=== PATIENT | male | born 1970 | race Caucasian/White ===

== ENCOUNTER → 2016-10-22 | Outpatient (CLI) | payer BC ==
[2016-10-22 10:32] LABS: Basophils # (A) 0.1 k/uL (0-0.2); Basophils % (A) 1 %; CHCM 33.1; Eosinophils # (A) 0.3 k/uL (0-0.7); Eosinophils % (A) 3 %; HCT 45.5 % (39.0-53.0); HDW 2.34; HGB 14.7 gm/dL (13.0-17.5); Luc # (Auto) 0.21; Luc % (Auto) 3; Lymphocytes # (A) 1.5 k/uL (1.0-4.8); Lymphocytes % (A) 19 %; MCH 29.4 pg (25.0-35.0); MCHC 32.4 g/dL (31.0-37.0); Mean Platelet Volume 8.1; Monocytes # (A) 0.7 k/uL (0-1.0); Monocytes % (A) 10 %; Neutrophils # (A) 4.9 k/uL (1.3-7.7); Neutrophils % (A) 64 %; WBC 7.7 k/uL (3.8-10.6); WBC (Perox) 8.12
[2016-10-22 10:44] LABS: ALT 96 U/L (21-72); AST 38 U/L (17-59); Alkaline Phosphatase 67 U/L (38-126); Anion Gap 13 mmol/L; Blood Urea Nitrogen 13 mg/dL (9-20); Calcium 8.3 mg/dL (8.4-10.2); Carbon Dioxide 24 mmol/L (22-30); Chloride 108 mmol/L (98-107); Cholesterol 105 mg/dL (<200); Glucose 102 mg/dL (74-99); HDL Cholesterol 36 mg/dL (40-60); Magnesium 2.1 mg/dL (1.6-2.3); Non-African American GFR(MDRD) >60 (>60 ml/min/1.73 sqM); Potassium 4.1 mmol/L (3.5-5.1); Sodium 145 mmol/L (137-145); Total Bilirubin 0.5 mg/dL (0.2-1.3); Triglycerides 144 mg/dL (<150)
[2016-10-22 13:02] LABS: Hemoglobin A1C 5.2 % (4.2-6.1)
== END | disposition home or self-care (01) ==
LOC: LABWHC1 09:55
PROVIDERS: ATTEND Family Medicine
DX: I10 Essential (primary) hypertension (principal); R73.01 Impaired fasting glucose; E78.5 Hyperlipidemia, unspecified
CPT/HCPCS: 36415; 80053; 80061; 83036; 83735; 84443; 85025

== ENCOUNTER → 2017-04-15 | Outpatient (CLI) | payer BC ==
[2017-04-15 09:59] LABS: Basophils % (A) 0 %; CH 29.1; CHCM 33.2; Eosinophils # (A) 0.3 k/uL (0-0.7); Eosinophils % (A) 4 %; HCT 45.1 % (39.0-53.0); HDW 2.35; HGB 15.5 gm/dL (13.0-17.5); Luc # (Auto) 0.24; Luc % (Auto) 3; Lymphocytes # (A) 1.8 k/uL (1.0-4.8); Lymphocytes % (A) 26 %; MCH 30.3 pg (25.0-35.0); MCHC 34.4 g/dL (31.0-37.0); Mean Platelet Volume 7.4; Monocytes # (A) 0.5 k/uL (0-1.0); Monocytes % (A) 7 %; Neutrophils # (A) 4.1 k/uL (1.3-7.7); Neutrophils % (A) 59 %; RBC 5.12 m/uL (4.30-5.90); RDW 13.1 % (11.5-15.5); WBC (Perox) 7.44
[2017-04-15 11:41] LABS: ALT 44 U/L (21-72); AST 25 U/L (17-59); Alkaline Phosphatase 67 U/L (38-126); Anion Gap 12 mmol/L; Blood Urea Nitrogen 14 mg/dL (9-20); Calcium 9.1 mg/dL (8.4-10.2); Carbon Dioxide 23 mmol/L (22-30); Chloride 108 mmol/L (98-107); Cholesterol 99 mg/dL (<200); Creatine Kinase 253 U/L (55-170); Glucose 103 mg/dL (74-99); HDL Cholesterol 35 mg/dL (40-60); Magnesium 2.1 mg/dL (1.6-2.3); Non-African American GFR(MDRD) >60 (>60 ml/min/1.73 sqM); Potassium 4.4 mmol/L (3.5-5.1); Sodium 143 mmol/L (137-145); Total Bilirubin 0.8 mg/dL (0.2-1.3); Triglycerides 92 mg/dL (<150)
[2017-04-15 12:10] LABS: Prostate Specific Antigen 0.88 ng/mL (0.00-4.00)
== END | disposition home or self-care (01) ==
LOC: LABWHC1 09:24
PROVIDERS: ATTEND Family Medicine
DX: E78.5 Hyperlipidemia, unspecified (principal); I10 Essential (primary) hypertension; I25.10 Atherosclerotic heart disease of native coronary artery without angina pectoris; N40.0 Benign prostatic hyperplasia without lower urinary tract symptoms; Z98.61 Coronary angioplasty status
CPT/HCPCS: 36415; 80053; 80061; 82550; 83735; 84153; 84439; 84443; 85025

== ENCOUNTER → 2017-10-09 | Outpatient (CLI) | payer BC ==
[2017-10-09 10:23] LABS: Basophils % (A) 1 %; CH 29.2; CHCM 32.4; Eosinophils # (A) 0.3 k/uL (0-0.7); Eosinophils % (A) 5 %; HCT 48.5 % (39.0-53.0); HDW 2.25; HGB 15.2 gm/dL (13.0-17.5); Luc # (Auto) 0.18; Luc % (Auto) 3; Lymphocytes # (A) 1.7 k/uL (1.0-4.8); Lymphocytes % (A) 26 %; MCH 28.4 pg (25.0-35.0); MCHC 31.3 g/dL (31.0-37.0); MCV 90.7 fL (80.0-100.0); Monocytes # (A) 0.6 k/uL (0-1.0); Monocytes % (A) 10 %; Neutrophils # (A) 3.7 k/uL (1.3-7.7); Neutrophils % (A) 56 %; RBC 5.35 m/uL (4.30-5.90); RDW 14.6 % (11.5-15.5); WBC 6.5 k/uL (3.8-10.6); WBC (Perox) 6.43
[2017-10-09 10:29] LABS: ALT 61 U/L (21-72); AST 33 U/L (17-59); Alkaline Phosphatase 59 U/L (38-126); Anion Gap 10 mmol/L; Blood Urea Nitrogen 15 mg/dL (9-20); Calcium 9.6 mg/dL (8.4-10.2); Carbon Dioxide 26 mmol/L (22-30); Chloride 104 mmol/L (98-107); Cholesterol 115 mg/dL (<200); Creatine Kinase 263 U/L (55-170); Glucose 106 mg/dL (74-99); HDL Cholesterol 37 mg/dL (40-60); Non-African American GFR(MDRD) >60 (>60 ml/min/1.73 sqM); Potassium 4.7 mmol/L (3.5-5.1); Sodium 140 mmol/L (137-145); Total Protein 7.5 g/dL (6.3-8.2)
== END | disposition home or self-care (01) ==
LOC: LABWHC1 09:34
PROVIDERS: ATTEND Family Medicine
DX: I25.10 Atherosclerotic heart disease of native coronary artery without angina pectoris (principal); I10 Essential (primary) hypertension; R73.01 Impaired fasting glucose; E78.5 Hyperlipidemia, unspecified
CPT/HCPCS: 36415; 80053; 80061; 82550; 83036; 84443; 85025

== ENCOUNTER → 2018-03-18 | Outpatient (CLI) | payer BC ==
[2018-03-18 10:22] LABS: Basophils % (A) 0 %; Eosinophils # (A) 0.3 k/uL (0-0.7); Eosinophils % (A) 4 %; HCT 46.6 % (39.0-53.0); HGB 15.2 gm/dL (13.0-17.5); Lymphocytes # (A) 1.7 k/uL (1.0-4.8); Lymphocytes % (A) 23 %; MCH 28.7 pg (25.0-35.0); MCHC 32.6 g/dL (31.0-37.0); MCV 87.9 fL (80.0-100.0); Mean Platelet Volume 7.3; Monocytes # (A) 0.6 k/uL (0-1.0); Monocytes % (A) 8 %; Neutrophils # (A) 4.6 k/uL (1.3-7.7); Neutrophils % (A) 62 %; Platelet Count 208 k/uL (150-450); RDW 13.8 % (11.5-15.5); WBC 7.4 k/uL (3.8-10.6)
[2018-03-18 10:49] LABS: ALT 46 U/L (21-72); AST 28 U/L (17-59); Albumin 4.3 g/dL (3.5-5.0); Alkaline Phosphatase 57 U/L (38-126); Anion Gap 14 mmol/L; Blood Urea Nitrogen 19 mg/dL (9-20); Calcium 8.9 mg/dL (8.4-10.2); Carbon Dioxide 22 mmol/L (22-30); Chloride 104 mmol/L (98-107); Cholesterol 115 mg/dL (<200); Glucose 103 mg/dL (74-99); HDL Cholesterol 31 mg/dL (40-60); LDL Cholesterol,Calculated 61 mg/dL (0-99); Magnesium 1.9 mg/dL (1.6-2.3); Potassium 4.2 mmol/L (3.5-5.1); Sodium 140 mmol/L (137-145); Total Bilirubin 0.9 mg/dL (0.2-1.3); Triglycerides 113 mg/dL (<150)
[2018-03-18 11:03] LABS: T4, Free (Free Thyroxine) 0.91 ng/dL (0.78-2.19)
[2018-03-18 20:05] LABS: Hemoglobin A1C 5.6 % (4.0-6.0)
== END | disposition home or self-care (01) ==
LOC: LABWHC1 09:52
PROVIDERS: ATTEND Family Medicine
DX: Z00.00 Encounter for general adult medical examination without abnormal findings (principal); R73.01 Impaired fasting glucose; E78.5 Hyperlipidemia, unspecified; R21 Rash and other nonspecific skin eruption; Z98.61 Coronary angioplasty status
CPT/HCPCS: 36415; 80053; 80061; 82607; 83036; 83735; 84439; 84443; 85025

== ENCOUNTER 2018-05-07 14:44 | Inpatient (IN) | payer BC ==
[2018-05-07] MEDS ORDERED: ASPIRIN 81 MG PO STA (14:58)
[2018-05-07] MEDS ORDERED: NITROGLYCERIN SL TABS 0.4 MG TAB SUBLINGUAL STA (14:58)
[2018-05-07] MEDS ORDERED: MORPHINE SULFATE 4 MG/ML SYRINGE IV STA (14:58)
[2018-05-07] MEDS ORDERED: SODIUM CHLORIDE 0.9% 1,000 ML IV STA (14:58)
--- NOTE | 2018-05-07 15:04 | ED ---
Chest Pain HPI - General Stated Complaint: Chest Pain/SOB Time Seen by Provider: 05/07/18 14:58 Source: patient Mode of arrival: wheelchair Limitations: no limitations - History of Present Illness Initial Comments: Denys is a 47-year-old male the past medical history most significant for coronary artery disease and CO approximately 5 years ago for which he had 2 stents placed. Patient reports that he was previously on a blood thinner but 2 months ago was told by his primary care physician that he can discontinue this. Patient reports that he was doing well at that time. Patient reports that today he woke up in his usual state of health and went to work. Patient reports he has a pretty physically demanding job and never has any complications performing his activities. He states that today he began feeling pain in his chest that radiated to his left shoulder. He then felt very short of breath and felt that he was about to pass out, he states that his vision darkened. He sat down to rest and felt somewhat better. He tried to go back to work but continued back pain in his chest. He took a full dose aspirin which did not improve his symptoms. At that time he decided to come to the emergency department for evaluation. The patient reports that he has not had episodes of chest pain since his previous heart attack. He has never had to take nitro in the past. His last stress test he believes was greater than one year ago and he cannot recall if he has had a cardiac catheterization since his stenting. - Related Data Home Medications Medication Instructions Recorded Confirmed Aspirin 81 mg PO DAILY 02/18/14 05/07/18 Atorvastatin Calcium [Lipitor] 40 mg PO HS 02/18/14 05/07/18 Lisinopril [Zestril] 2.5 mg PO DAILY 02/18/14 05/07/18 Metoprolol Tartrate [Lopressor] 25 mg PO DAILY 02/18/14 05/07/18 Previous Rx's Medication Instructions Recorded Nitroglycerin Sl Tabs [Nitrostat] 0.4 mg SUBLINGUAL Q5M PRN #25 tab 02/19/14 Allergies Allergy/AdvReac Type Severity Reaction Status Date / Time No Known Allergies Allergy Verified 05/07/18 15:10 Review of Systems ROS Statement: Those systems with pertinent positive or pertinent negative responses have been documented in the HPI. ROS Other: All systems not noted in ROS Statement are negative. Constitutional: Denies: fever, chills ENT: Denies: throat pain Respiratory: Reports: dyspnea. Denies: cough, wheezes Cardiovascular: Reports: chest pain, dyspnea on exertion. Denies: edema Endocrine: Reports: fatigue Gastrointestinal: Denies: abdominal pain, nausea, vomiting Genitourinary: Denies: urgency, dysuria Musculoskeletal: Denies: back pain Skin: Denies: rash, lesions Neurological: Denies: headache, weakness Psychiatric: Denies: anxiety Hematological/Lymphatic: Denies: easy bleeding, easy bruising EKG Findings - EKG Comments: EKG Findings:: EKG at 1455, rate is 59, rhythm is sinus, there is a normal axis , there are normal intervals, NJ 172, QRS 86, QTC 423, there are no acute ST elevations, noted to have T-wave inversions in lead 3 but no other significant abnormalities. No evidence of acute ischemia or infarction. Past Medical History Past Medical History: Chest Pain / Angina, Hyperlipidemia, Hypertension, Myocardial Infarction (CO) Last Myocardial Infarction Date:: February 2013 History of Any Multi-Drug Resistant Organisms: None Reported Past Surgical History: Heart Catheterization With Stent Past Anesthesia/Blood Transfusion Reactions: No Reported Reaction Date of Last Stent Placement:: February 2013 Past Psychological History: No Psychological Hx Reported Smoking Status: Former smoker Past Alcohol Use History: None Reported Past Drug Use History: None Reported - Past Family History Father Family Medical History: Myocardial Infarction ([place]) General Exam Limitations: no limitations Course Vital Signs 05/07/18 05/07/18 14:53 15:32 Temperature 98.3 F Pulse Rate 62 70 Respiratory 18 16 Rate Blood Pressure 158/93 136/77 O2 Sat by Pulse 100 98 Oximetry [facility] The patient was seen and evaluated, history is obtained from the patient A short with a history of coronary artery disease, status post stenting 2. Recently taken off of his oral anticoagulant. Experiencing exertional chest pain, dyspnea and lightheadedness today. Upon arrival patient was pale and diaphoretic High suspicion for cardiac etiology of discomfort and symptoms Patient took a baby aspirin this morning and a full dose aspirin when his symptoms started, no indication for aspirin this time Patient did not take a nitro because he has not taken in the past and is uncertain if he should. Nitro was ordered as well as EKG and labs EKG is sinus bradycardia with no acute ST elevations or depressions Chest x-ray no acute findings The patient reports significant improvement in his discomfort after Nitro infusion was ordered Troponin is negative. Of note the CK is elevated the patient does perform a physically active job and admits that he doesn't eat or drink throughout the day , we will hydrate and trend this Care discussed with Dr Curry who agrees patient needs observation, heparin, nitro and cardiology consultation Observation and cardiology consult orders placed Disposition Clinical Impression: Chest pain Disposition: ADMITTED IP TO THIS HOSP Condition: Good Is patient prescribed a controlled substance at d/c from ED?: No Decision Time: 17:05
--- NOTE | 2018-05-07 15:49 | XR ---
EXAMINATION TYPE: XR chest 2V DATE OF EXAM: 05/07/2018 COMPARISON: Prior chest 02/18/2014 HISTORY: Chest pain TECHNIQUE: Frontal and lateral views of the chest are obtained. FINDINGS: There is no focal air space opacity, pleural effusion, or pneumothorax seen. The cardiac silhouette size is within normal limits. The osseous structures are intact. IMPRESSION: No acute cardiopulmonary process. Stable exam.
[2018-05-07 15:51] LABS: Basophils % (A) 0 %; Eosinophils # (A) 0.1 k/uL (0-0.7); Eosinophils % (A) 2 %; HCT 44.3 % (39.0-53.0); HGB 14.9 gm/dL (13.0-17.5); Lymphocytes # (A) 1.2 k/uL (1.0-4.8); Lymphocytes % (A) 19 %; MCH 28.8 pg (25.0-35.0); MCHC 33.7 g/dL (31.0-37.0); MCV 85.4 fL (80.0-100.0); Mean Platelet Volume 7.3; Monocytes # (A) 0.5 k/uL (0-1.0); Monocytes % (A) 8 %; Neutrophils # (A) 4.4 k/uL (1.3-7.7); Neutrophils % (A) 69 %; Platelet Count 180 k/uL (150-450); RBC 5.19 m/uL (4.30-5.90); RDW 13.7 % (11.5-15.5); WBC 6.4 k/uL (3.8-10.6)
[2018-05-07] MEDS ORDERED: NITROGLYCERIN-D5W PMX 50 MG in DEXTROSE/WATER 1 250ML.BAG IV ONE (15:53)
[2018-05-07 15:58] LABS: ALT 44 U/L (21-72); AST 29 U/L (17-59); Albumin 4.4 g/dL (3.5-5.0); Alkaline Phosphatase 52 U/L (38-126); Anion Gap 8 mmol/L; Blood Urea Nitrogen 15 mg/dL (9-20); Calcium 9.1 mg/dL (8.4-10.2); Carbon Dioxide 24 mmol/L (22-30); Chloride 107 mmol/L (98-107); Glucose 106 mg/dL (74-99); Potassium 4.7 mmol/L (3.5-5.1); Sodium 139 mmol/L (137-145); Total Protein 7.1 g/dL (6.3-8.2)
[2018-05-07 16:03] LABS: Creatine Kinase 389 U/L (55-170)
[2018-05-07 16:06] LABS: INR 1.1 (<1.2); Partial Thromboplastin Time 27.1 sec (22.0-30.0); Prothrombin Time 10.8 sec (9.0-12.0)
[2018-05-07 16:15] LABS: Creatine Kinase MB 1.9 ng/mL (0.0-2.4); Troponin I <0.012 ng/mL (0.000-0.034)
[2018-05-07] MEDS ORDERED: NALOXONE 0.4 MG/ML 1 ML VIAL IV PRN (17:01)
[2018-05-07] MEDS ORDERED: HEPARIN SODIUM,PORCINE 5,000 UNIT/ML 1 ML VIAL IV ONE (17:03)
[2018-05-07] MEDS ORDERED: HEPARIN SODIUM,PORCINE 5,000 UNIT/ML 1 ML VIAL IV PRN (17:03)
[2018-05-07] MEDS ORDERED: HEPARIN SOD,PORK IN 0.45% NACL 25,000 UNIT in 0.45% NACL 1 500ML.BAG IV SCH (17:15)
[2018-05-07 19:37] VITALS: BMI 31.2
[2018-05-07] MEDS ORDERED: NITROGLYCERIN SL TABS 0.4 MG TAB SUBLINGUAL PRN (19:55)
[2018-05-07] MEDS: METOPROLOL TARTRATE 25 MG TAB PO SCH (20:08)
[2018-05-07] MEDS: ACETAMINOPHEN TAB 325 MG TAB PO PRN (20:09)
[2018-05-07] MEDS: FAMOTIDINE 20 MG TAB PO SCH (20:11)
[2018-05-07] MEDS ORDERED: ATORVASTATIN 40 MG TAB PO SCH (21:00)
[2018-05-08] MEDS ORDERED: ACETAMINOPHEN TAB 325 MG TAB ONE (03:20)
[2018-05-08 03:52] LABS: Basophils % (A) 0 %; Eosinophils # (A) 0.3 k/uL (0-0.7); Eosinophils % (A) 3 %; HCT 41.2 % (39.0-53.0); HGB 13.7 gm/dL (13.0-17.5); Lymphocytes # (A) 2.3 k/uL (1.0-4.8); Lymphocytes % (A) 29 %; MCHC 33.3 g/dL (31.0-37.0); MCV 87.3 fL (80.0-100.0); Mean Platelet Volume 7.5; Monocytes # (A) 0.6 k/uL (0-1.0); Monocytes % (A) 8 %; Neutrophils # (A) 4.7 k/uL (1.3-7.7); Neutrophils % (A) 58 %; Platelet Count 190 k/uL (150-450); RBC 4.71 m/uL (4.30-5.90); RDW 13.8 % (11.5-15.5)
[2018-05-08] MEDS: ASPIRIN 325 MG TAB PO SCH (08:23)
[2018-05-08] MEDS: LISINOPRIL 2.5 MG TAB PO SCH (08:23)
[2018-05-08] MEDS: FAMOTIDINE 20 MG TAB PO SCH ×3 (08:23→19:59)
[2018-05-08] MEDS: METOPROLOL TARTRATE 25 MG TAB PO SCH ×2 (08:23→19:57)
[2018-05-08] MEDS: ACETAMINOPHEN TAB 325 MG TAB PO PRN ×2 (08:26→21:44)
--- NOTE | 2018-05-08 09:48 | P.CRDCN ---
History of Present Illness Consult date: 05/08/18 Chief complaint: Chest discomfort History of present illness: This is a pleasant 47-year-old gentleman who sees Dr. JOSIAS Fox in the office as an outpatient with a past medical history significant for coronary artery disease and prior stenting of the LAD and RCA in 2012, hypertension, and dyslipidemia, as well as prior history of smoking, presented to the emergency room complaining of chest discomfort. The patient was in his usual state of health until yesterday when he was at work and started experiencing chest discomfort, in the mid and left side of the chest, as a dull kind of discomfort , without any radiation to the arm or neck or shoulders but it was associated with any nausea and shortness of breath feeling. The patient took one nitroglycerin with improvement in his symptoms and he presented to the emergency room. In the ER the patient wasn't started experiencing chest discomfort again and he was started on nitro drip and heparin drip. During his hospital stay he did have 2 more episodes of chest discomfort resolved with sublingual nitroglycerin. Currently the patient is still have very mild chest discomfort. The EKG showed sinus rhythm without any ischemic ST or T-wave abnormalities. 3 sets of cardiac enzymes came in to be unremarkable. Giving the ongoing chest discomfort and the nature of the discomfort which seems to be anginal I did recommend proceeding with heart catheterization. The procedure in details was explained to the patient. Past Medical History Past Medical History: Chest Pain / Angina, Hyperlipidemia, Hypertension, Myocardial Infarction ([place]) Last Myocardial Infarction Date:: February 2013 History of Any Multi-Drug Resistant Organisms: None Reported Past Surgical History: Heart Catheterization With Stent Past Anesthesia/Blood Transfusion Reactions: No Reported Reaction Date of Last Stent Placement:: February 2013 Past Psychological History: No Psychological Hx Reported Smoking Status: Former smoker Past Alcohol Use History: Occasional Past Drug Use History: None Reported - Past Family History Father Family Medical History: Myocardial Infarction ([place]) Medications and Allergies Home Medications Medication Instructions Recorded Confirmed Type Aspirin 81 mg PO DAILY 02/18/14 05/07/18 History Atorvastatin Calcium [Lipitor] 40 mg PO HS 02/18/14 05/07/18 History Lisinopril [Zestril] 2.5 mg PO DAILY 02/18/14 05/07/18 History Metoprolol Tartrate [Lopressor] 25 mg PO BID 02/18/14 05/07/18 History Nitroglycerin Sl Tabs [Nitrostat] 0.4 mg SUBLINGUAL Q5M PRN #25 tab 02/19/14 Rx Allergies Allergy/AdvReac Type Severity Reaction Status Date / Time No Known Allergies Allergy Verified 05/07/18 15:10 Physical Exam Vitals: Vital Signs Temp Pulse Pulse Resp BP BP Pulse Ox 05/08/18 08:28 97.1 F L 61 16 111/70 95 05/08/18 04:00 96.9 F L 58 L 16 109/72 96 05/08/18 00:00 97.3 F L 60 18 109/70 94 L 05/07/18 20:00 96.9 F L 60 18 123/65 97 05/07/18 18:37 56 L 16 121/65 95 05/07/18 17:45 50 L 16 132/86 98 05/07/18 15:32 70 16 136/77 98 05/07/18 14:53 98.3 F 62 18 158/93 100 Intake and Output 05/07/18 05/08/18 05/08/18 22:59 06:59 14:59 Intake Total 300 1036.333 Balance 300 1036.333 Intake: Intake, IV Titration 1036.333 Amount Heparin Sod,Pork in 0.45% 236.333 NaCl 25,000 unit In 0.45 % NaCl 1 500ml.bag @ 10.5 UNITS/KG/HR 20 mls/hr IV .Q24H KATHERIN Rx#:[id number] Sodium Chloride 0.9% 1, 800 000 ml @ 100 mls/hr IV . Q10H STA Rx#:[id number] Oral 300 Other: Voiding Method Toilet Toilet # Voids 1 2 Weight 96 kg 96 kg - Constitutional General appearance: no acute distress - Respiratory Respiratory: bilateral: CTA - Cardiovascular Rhythm: regular Heart sounds: normal: S1, S2 Results 05/08/18 03:10 05/07/18 15:15 Cardiac Enzymes 05/07/18 05/07/18 05/07/18 Range/Units 15:15 15:15 20:36 AST 29 (17-59) U/L CK-MB (CK-2) 1.9 (0.0-2.4) ng/mL Troponin I <0.012 <0.012 (0.000-0.034) ng/mL 05/08/18 Range/Units 03:10 AST (17-59) U/L CK-MB (CK-2) (0.0-2.4) ng/mL Troponin I <0.012 (0.000-0.034) ng/mL Coagulation 05/07/18 05/07/18 05/08/18 Range/Units 15:15 23:20 05:30 PT 10.8 (9.0-12.0) sec APTT 27.1 49.1 H 42.3 H (22.0-30.0) sec CBC 05/07/18 05/08/18 Range/Units 15:15 03:10 WBC 6.4 8.0 (3.8-10.6) k/uL RBC 5.19 4.71 (4.30-5.90) m/uL Hgb 14.9 13.7 (13.0-17.5) gm/dL Hct 44.3 41.2 (39.0-53.0) % Plt Count 180 190 (150-450) k/uL Comprehensive Metabolic Panel 05/07/18 Range/Units 15:15 Sodium 139 (137-145) mmol/L Potassium 4.7 (3.5-5.1) mmol/L Chloride 107 (98-107) mmol/L Carbon Dioxide 24 (22-30) mmol/L BUN 15 (9-20) mg/dL Creatinine 0.80 (0.66-1.25) mg/dL Glucose 106 H (74-99) mg/dL Calcium 9.1 (8.4-10.2) mg/dL AST 29 (17-59) U/L ALT 44 (21-72) U/L Alkaline Phosphatase 52 (38-126) U/L Total Protein 7.1 (6.3-8.2) g/dL Albumin 4.4 (3.5-5.0) g/dL Current Medications Generic Name Dose Route Start Last Admin Trade Name Freq PRN Reason Stop Dose Admin Acetaminophen 650 mg 05/07/18 19:56 05/08/18 08:26 Tylenol Tab PO 650 mg Q4HR PRN Administration Fever and/ or MILD Pain Aspirin 325 mg 05/08/18 09:00 05/08/18 08:23 Aspirin PO 325 mg DAILY KATHERIN Administration Atorvastatin Calcium 40 mg 05/07/18 21:00 05/07/18 20:08 Lipitor PO 40 mg HS KATHERIN Administration Famotidine 20 mg 05/07/18 21:00 05/08/18 08:23 Pepcid PO 20 mg BID KATHERIN Administration Heparin Sodium (Porcine) 0 unit 05/07/18 17:03 05/08/18 06:23 Heparin IV 2,400 unit PER PROTOCOL PRN Administration Low PTT Protocol Nitroglycerin/Dextrose 50 mg/ 250 mls @ 1.5 mls/hr 05/07/18 15:53 05/07/18 16 :37 IV Solution IV 05/08/18 15:52 5 mcg/min .Q24H ONE 1.5 mls/hr Administration Protocol 5 MCG/MIN Heparin Sodium/Sodium Chloride 500 mls @ 20 mls/hr 05/07/18 17:15 05/08/18 06 :22 25,000 unit/ Sodium Chloride IV 12.5 units/kg/hr .Q24H KATHERIN 23.81 mls/hr Titration Protocol 10.5 UNITS/KG/HR Lisinopril 2.5 mg 05/08/18 09:00 05/08/18 08:23 Zestril PO 2.5 mg DAILY KATHERIN Administration Metoprolol Tartrate 25 mg 05/07/18 21:00 05/08/18 08:23 Lopressor PO 25 mg BID KATHERIN Administration Naloxone HCl 0.2 mg 05/07/18 17:01 Narcan IV Q2M PRN Opioid Reversal Nitroglycerin 0.4 mg 05/07/18 19:55 05/08/18 08:23 Nitrostat SUBLINGUAL 0.4 mg Q5M PRN Administration Chest Pain Intake and Output 05/07/18 05/08/18 05/08/18 22:59 06:59 14:59 Intake Total 300 1036.333 Balance 300 1036.333 Intake: Intake, IV Titration 1036.333 Amount Heparin Sod,Pork in 0.45% 236.333 NaCl 25,000 unit In 0.45 % NaCl 1 500ml.bag @ 10.5 UNITS/KG/HR 20 mls/hr IV .Q24H KATHERIN Rx#:[id number] Sodium Chloride 0.9% 1, 800 000 ml @ 100 mls/hr IV . Q10H STA Rx#:[id number] Oral 300 Other: Voiding Method Toilet Toilet # Voids 1 2 Weight 96 kg 96 kg 05/08/18 03:10 05/07/18 15:15 Assessment and Plan Assessment: Assessment #1 chest discomfort concerning for angina. #2 known CAD and prior multivessel coronary artery stenting as described above #3 hypertension #4 dyslipidemia Plan #1 I did recommend proceeding with a heart catheterization #2 obtain an echocardiogram was Doppler #3 follow-up with the patient. Thank you for allowing us participate in his care and we will continue following up with the patient
[2018-05-08] MEDS ORDERED: ATORVASTATIN 80 MG TAB PO STA (10:19)
[2018-05-08] MEDS ORDERED: SODIUM CHLORIDE 0.9% 1,000 ML in EMPTY BAG 1 BAG IV ONE (10:19)
[2018-05-08] MEDS ORDERED: ALPRAZolam 0.25 MG TAB PO PRN (10:19)
[2018-05-08] MEDS ORDERED: ASPIRIN 325 MG TAB PO STA (10:19)
[2018-05-08] MEDS ORDERED: ALPRAZolam 0.5 MG TAB PO PRN (10:19)
[2018-05-08] MEDS ORDERED: NITROGLYCERIN SL TABS 0.4 MG TAB SUBLINGUAL PRN (10:19)
--- NOTE | 2018-05-08 10:24 | ECHOF ---
Referral Reason:assess lvf MEASUREMENTS -------- HEIGHT: 175.3 cm WEIGHT: 95.7 kg BP: 109/72 RVIDd: 2.4 cm (< 3.3) IVSd: 0.9 cm (0.6 - 1.1) LVIDd: 5.1 cm (3.9 - 5.3) LVPWd: 0.9 cm (0.6 - 1.1) IVSs: 1.3 cm LVIDs: 3.8 cm LVPWs: 1.3 cm LAESV Index (A-L): 29.74 ml/m Ao Diam: 3.0 cm (2.0 - 3.7) AV Cusp: 2.2 cm (1.5 - 2.6) LA Diam: 3.2 cm (2.7 - 3.8) EPSS: 0.9 cm MV E Mateus: 0.96 m/s MV DecT: 264 ms MV A Mateus: 0.59 m/s MV E/A Ratio: 1.63 RAP: 5.00 mmHg RVSP: 22.66 mmHg MV EF SLOPE: 85.54 mm/s (70 - 150) MV EXCURSION: 1.86 cm (> 18.000) FINDINGS -------- Sinus rhythm. This was a technically adequate study. The left ventricular size is normal. Left ventricular wall thickness is normal. Overall left vent ricular systolic function is low-normal with, an EF between 50 - 55 %. The right ventricle is normal in size and function. LA is midly dilated 29-33ml/m2. The right atrium is normal in size. The aortic valve is trileaflet, and appears structurally normal. No aortic stenosis or regurgitation. The mitral valve is normal. There is trace to mild mitral regurgitation. Trace tricuspid regurgitation present. Right ventricular systolic pressure is normal at < 35 mmHg. There is no evidence of pulmonary hypertension. Trace/mild (physiologic) pulmonic regurgitation. The aortic root size is normal. Normal inferior vena cava with normal inspiratory collapse consistent with estimated right atrial pre ssure of 5 mmHg. There is no pericardial effusion. CONCLUSIONS -------- 1. Sinus rhythm. 2. This was a technically adequate study. 3. The left ventricular size is normal. 4. Left ventricular wall thickness is normal. 5. Overall left ventricular systolic function is low-normal with, an EF between 50 - 55 %. 6. LA is midly dilated 29-33ml/m2. 7. The aortic valve is trileaflet, and appears structurally normal. No aortic stenosis or regurgitati on. 8. There is trace to mild mitral regurgitation. 9. Trace tricuspid regurgitation present. 10. Right ventricular systolic pressure is normal at < 35 mmHg. 11. There is no evidence of pulmonary hypertension. 12. Trace/mild (physiologic) pulmonic regurgitation. 13. The aortic root size is normal. 14. There is no pericardial effusion. FIRESTOPPER INSTALLER: Jacob Butler RDCS
[2018-05-08] MEDS ORDERED: IV FLUID CONTINUATION 900 ML IV ONE (11:29)
[2018-05-08] MEDS ORDERED: MIDAZOLAM 2 MG/2 ML VIAL IVP ONE ×2 (11:36→11:46)
[2018-05-08] MEDS ORDERED: LIDOCAINE 1% INJ 10MG/ML (20 ML MDV) SQ ONE (11:42)
[2018-05-08] MEDS: VERAPAMIL SYRINGE (5 MG/10 ML) INTRAARTER ONE ×2 (11:45→11:54)
[2018-05-08] MEDS ORDERED: HEPARIN SODIUM 1,000 UN/ML (10ML VL) IV ONE (11:45)
[2018-05-08] MEDS ORDERED: IOPAMIDOL-370 125ML BTL INJ ONE (11:54)
[2018-05-08] MEDS ORDERED: RX INFO: IV CONTRAST WAS GIVEN 1 EACH MISC MISCELLANE PRN (12:04)
[2018-05-08] MEDS ORDERED: SODIUM CHLORIDE 0.9% 1,000 ML IV SCH (12:15)
--- NOTE | 2018-05-08 12:44 | LTR ---
DATE OF SERVICE: 05/08/2018 RE: Denys Montalvo Dear Dr. Solo; Mr. Denys Montalvo presented to the emergency room complaining of chest discomfort. As you know, he is known to have coronary artery disease and prior stenting of the LAD and RCA. Because of the ongoing chest discomfort, I did recommend proceeding with a heart catheterization. The heart catheterization did reveal chronic total occlusion of the right coronary artery which fills by collaterals from the left coronary artery system. Maximize medical treatment is recommended at this point of time and I am going to add oral nitrate and Ranexa to his regimen. Thank you for allowing us to participate in his care. Sincerely, MD RERE Trevizo / DAT: [id number] /
--- NOTE | 2018-05-08 12:50 | CC ---
CARDIAC CATHETERIZATION REPORT DATE OF SERVICE: 05/08/2018 PERFORMING PHYSICIAN: Sherwin Lo MD, medical instructor. PROCEDURE PERFORMED: 1. Selective right and left coronary angiogram. 2. Left heart catheterization. INDICATION: This is a pleasant 47-year-old gentleman who sees Dr. Sg Dang in the office as an outpatient with history of coronary artery disease and prior stenting of the LAD and RCA in 2012, as well as hypertension and dyslipidemia who presented to the emergency room complaining of chest discomfort started yesterday. The patient was ruled out for acute coronary event. He continues to have chest discomfort relieved by nitroglycerin. Because of that, a heart catheterization was recommended. APPROACH: Right radial artery. COMPLICATION: None. LEVEL OF SEDATION: Moderate, with sedation length of 12 minutes. PROCEDURE DESCRIPTION: After obtaining an informed consent, the patient was brought to cardiac director of cath lab. The right radial artery was cannulated using micropuncture technique, the micropuncture wire passed easily then I placed a 6-Emirati sheath in the right radial artery. After that I gave the patient 2 mg of verapamil IA and 10,000 units of heparin IV. I did selective right and left coronary angiogram using JR4 and JL3.5 catheters. The left heart catheterization was performed using the JR4 catheter which flipped into the LV then I did pullback across the aortic valve. The procedure was completed without any complication. SELECTIVE CORONARY ANGIOGRAM: 1. The RCA is a large caliber vessel and it is a dominant vessel. The RCA in the proximal portion is stented and the stent is patent. The mid RCA has mild disease only. The RCA distally has a long tubular lesion extends from the midportion all the way to distal and distal is 100% occluded on a short area, short segment of chronic total occlusion. The RCA fills by collateral from the right coronary system. 2. The left main is angiographically normal. It bifurcates into left circumflex and left anterior descending artery. 3. The left circumflex: The proximal circumflex has mild disease only. It gives rise into a large OM branch which has mild disease only as well. The mid circumflex is normal. The circumflex distally appeared to be angiographically normal. Left-to- right collaterals were seen filling the RCA. 4. The LAD: The proximal LAD has mild disease only. The LAD in the proximal portion is stented and the stent is patent. The LAD gives rise also in the proximal portion into a medium-sized diagonal branch which has moderate disease in its ostium. The mid and distal LAD appeared to be angiographically normal. HEMODYNAMICS: The left ventricular end-diastolic pressure was 12 mmHg and no gradient was identified across the aortic valve. CONCLUSION: 1. 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 2. Normal left main coronary artery. 3. Mild disease involving the left circumflex coronary system. 4. Mild disease involving the left anterior descending artery coronary system with patent stent in the proximal left anterior descending artery. There was intermediate disease involving the ostial diagonal appeared to be unchanged compared to before. POSTPROCEDURE MANAGEMENT: I did recommend a conservative medical approach and medical treatment only for this gentleman. He is already on aspirin, high-intensity statin, and metoprolol, as well as lisinopril. I am going to add oral nitrate as well as Ranexa and follow up with him. If he is pain-free by tomorrow, he might be able to be discharged home and follow up with Dr. Sg Fox in the office. MMODL / IJN: [id number] /
--- NOTE | 2018-05-08 13:41 | P.HPIM ---
History of Present Illness H&P Date: 05/08/18 Chief Complaint: Unstable angina, coronary artery disease, hypertension, hyperlipidemia, MIRYAM 47-year-old male one of Dr. Solo's patient with past medical history of CAD post PCI and stent placement over 2 years ago who seen cardiology regular basis also had history of hypertension hyperlipidemia has been on medical management patient is more compliant watch himself carefully. He developed to have chest tightness and discomfort in midsternal area radiating toward the left upper side and the neck area symptom or associated with increased shortness of breath with minimum exertion along with palpitation mild lightheadedness and nausea. Symptoms were more severe and reminded him what happened last time when he had his angioplasty of the RCA and this LAD back in 2012. Soon as he arrived to the emergency room patient symptom resolved with nitroglycerin and he become chest pain free. Was started on heparin drip nitro and admitted to the hospital. Patient be seen cardiology and probably will be going for heart catheter in the meanwhile will keep doing CK with troponin times 3 repeat EKG. Review of Systems CONSTITUTIONAL: Well-developed no acute respiratory distress. EYES: No icterus sclerae, no conjunctivitis. EARS, NOSE, MOUTH, THROAT, and FACE: No sore throat, lymphadenopathy, carotid bruits or deformity. RESPIRATORY: No SOB cough or wheezes. CARDIOVASCULAR: Positive chest pain and angina, positive palpitation and shortness of breath. GASTROINTESTINAL: No Abd pain, Nausea or vomiting, no Diarrhea or constipation, No GI Bleed, no distention or masses. GENITOURINARY: Negative for Hematuria or UTI, no kidney stones. INTEGUMENT/BREAST: Negative for any muscular injury with mild osteoarthritis.. HEMATOLOGIC/LYMPHATIC: Negative for bleed or purpura. MUSCULOSKELTAL: Negative for Myalgia or arthralgia. NEURLOGICAL: No LOC, Sz or syncope, blurred vision dizziness or abnormality.. BEHAVIORAL/PSYCH: Negative. ENDOCRINE: Negative. Past Medical History Past Medical History: Chest Pain / Angina, Hyperlipidemia, Hypertension, Myocardial Infarction ([place]) Last Myocardial Infarction Date:: February 2013 History of Any Multi-Drug Resistant Organisms: None Reported Past Surgical History: Heart Catheterization With Stent Past Anesthesia/Blood Transfusion Reactions: No Reported Reaction Date of Last Stent Placement:: February 2013 Past Psychological History: No Psychological Hx Reported Smoking Status: Former smoker Past Alcohol Use History: Occasional Past Drug Use History: None Reported - Past Family History Father Family Medical History: Myocardial Infarction ([place]) Medications and Allergies Home Medications Medication Instructions Recorded Confirmed Type Aspirin 81 mg PO DAILY 02/18/14 05/07/18 History Atorvastatin Calcium [Lipitor] 40 mg PO HS 02/18/14 05/07/18 History Lisinopril [Zestril] 2.5 mg PO DAILY 02/18/14 05/07/18 History Metoprolol Tartrate [Lopressor] 25 mg PO BID 02/18/14 05/07/18 History Nitroglycerin Sl Tabs [Nitrostat] 0.4 mg SUBLINGUAL Q5M PRN #25 tab 02/19/14 Rx Allergies Allergy/AdvReac Type Severity Reaction Status Date / Time No Known Allergies Allergy Verified 05/07/18 15:10 Physical Exam Vitals: Vital Signs Temp Pulse Pulse Resp BP BP Pulse Ox 05/08/18 12:55 117/70 05/08/18 12:40 123/80 05/08/18 12:25 121/81 05/08/18 12:10 16 120/77 96 05/08/18 10:52 97.1 F L 61 16 111/70 95 05/08/18 08:28 97.1 F L 61 16 111/70 95 05/08/18 08:00 16 05/08/18 04:00 96.9 F L 58 L 16 109/72 96 05/08/18 00:00 97.3 F L 60 18 109/70 94 L 05/07/18 20:00 96.9 F L 60 18 123/65 97 05/07/18 18:37 56 L 16 121/65 95 05/07/18 17:45 50 L 16 132/86 98 05/07/18 15:32 70 16 136/77 98 05/07/18 14:53 98.3 F 62 18 158/93 100 Intake and Output 05/07/18 05/08/18 05/08/18 22:59 06:59 14:59 Intake Total 300 1036.333 50 Balance 300 1036.333 50 Intake: IV 50 Intake, IV Titration 1036.333 Amount Heparin Sod,Pork in 0.45% 236.333 NaCl 25,000 unit In 0.45 % NaCl 1 500ml.bag @ 10.5 UNITS/KG/HR 20 mls/hr IV .Q24H KATHERIN Rx#:[id number] Sodium Chloride 0.9% 1, 800 000 ml @ 100 mls/hr IV . Q10H STA Rx#:[id number] Oral 300 Other: Voiding Method Toilet Toilet # Voids 1 2 Weight 96 kg 96 kg General Appearance: Alert, cooperative, no distress, appears stated age. Neck HEENT: Supple, no lymphadenopathy, no thyroid enlargement, no carotid bruits. Lungs: Clear to auscultation without crackles or wheezes no rhonchi, no deformity. Chest Wall: Chest wall normal expansion with deep inspiration no tenderness and no deformity was found on exam, no costochondral pain or discomfort. Heart: Regular rate and rhythm, S1, S2 normal, no murmur, rub or gallop. Back: Symmetric, no curvature, ROM normal, no CVA tenderness. Abdomen: Soft, non-tender, bowel sounds active all four quadrants, no masses, no organomegaly. Extremities: Extremities normal, atraumatic, no cyanosis or edema. Pulses: 2+ and symmetric. Skin: Skin color, texture, tugor normal, no rashes or lesions. Neurologic: Alert oriented x3 cranial nerves II through XII intact, no motor deficit, no abnormal balance or gait. Results CBC & Chem 7: 05/08/18 03:10 05/07/18 15:15 Labs: Abnormal Lab Results - Last 24 Hours (Table) 05/07/18 05/07/18 05/07/18 Range/Units 15:15 15:15 23:20 APTT 49.1 H (22.0-30.0) sec Glucose 106 H (74-99) mg/dL Total Creatine Kinase 389 H (55-170) U/L 05/08/18 Range/Units 05:30 APTT 42.3 H (22.0-30.0) sec Glucose (74-99) mg/dL Total Creatine Kinase (55-170) U/L Thrombosis Risk Factor Assmnt - DVT/VTE Prophylaxis DVT/VTE Prophylaxis: Pharmacologic Prophylaxis ordered, Mechanical Prophylaxis ordered - Choose All That Apply Any of the Below Risk Factors Present?: Yes Each Factor Represents 1 point: Age 41-60 years, Obesity (BMI >25) Other Risk Factors: No Other congenital or acquired thrombophilia - If yes, enter type in comment: No Thrombosis Risk Factor Assessment Total Risk Factor Score: 2 Thrombosis Risk Factor Assessment Level: Low Risk Assessment and Plan Plan: 1 unstable angina: Patient be going for heart catheter if he has any blockage angioplasty and stent will be done and patient will be continued on secondary prevention afterward. 2 CAD post to angioplasty and stent placement of the RCA and LAD has been seen Dr. FERRARA ready regular basis continue current treatment management. 3 hypertension: Patient has been on metoprolol 25 mg twice a day along with lisinopril 2.5 mg daily. 4 hyperlipidemia: Remain on atorvastatin 40 mg daily. 5 severe GERD: Patient be started on Pepcid 20 mg daily. 6 DVT prophylaxis: Patient remain on heparin drip currently. CODE STATUS: Full code. Admit patient to inpatient status for more than 2 nights.
[2018-05-08] MEDS: ISOSORBIDE MONONITRATE ER 30 MG TAB.ER.24H PO SCH (14:24)
[2018-05-08] MEDS: RANOLAZINE 500 MG TAB.ER.12H PO SCH ×2 (14:24→19:57)
[2018-05-08] MEDS ORDERED: RANOLAZINE 500 MG TAB.ER.12H PO SCH (21:00)
[2018-05-09 06:54] LABS: Basophils % (A) 0 %; Eosinophils # (A) 0.2 k/uL (0-0.7); Eosinophils % (A) 3 %; HCT 41.5 % (39.0-53.0); HGB 13.8 gm/dL (13.0-17.5); Lymphocytes # (A) 1.6 k/uL (1.0-4.8); Lymphocytes % (A) 24 %; MCHC 33.2 g/dL (31.0-37.0); MCV 87.3 fL (80.0-100.0); Mean Platelet Volume 7.4; Monocytes # (A) 0.5 k/uL (0-1.0); Monocytes % (A) 8 %; Neutrophils % (A) 62 %; Platelet Count 188 k/uL (150-450); RBC 4.75 m/uL (4.30-5.90); RDW 13.9 % (11.5-15.5); WBC 6.5 k/uL (3.8-10.6)
[2018-05-09] MEDS ORDERED: ISOSORBIDE MONONITRATE ER 30 MG TAB.ER.24H PO SCH (09:00)
[2018-05-09] MEDS: ASPIRIN 325 MG TAB PO SCH (09:07)
[2018-05-09] MEDS: METOPROLOL TARTRATE 25 MG TAB PO SCH (09:07)
[2018-05-09] MEDS: ISOSORBIDE MONONITRATE ER 30 MG TAB.ER.24H PO SCH (09:08)
[2018-05-09] MEDS: FAMOTIDINE 20 MG TAB PO SCH (09:08)
[2018-05-09] MEDS: RANOLAZINE 500 MG TAB.ER.12H PO SCH (09:08)
[2018-05-09] MEDS: LISINOPRIL 2.5 MG TAB PO SCH (09:08)
[2018-05-09 09:11] VITALS: BP 141/82; PULSE 64; RESP 16; TEMP 97.5
--- NOTE | 2018-05-09 11:16 | P.DS ---
Providers Date of admission: 05/08/18 15:57 Expected date of discharge: 05/09/18 Attending physician: Alan Curry Consults: 05/07/18 17:01 Consult Physician Stat Consulting Provider: Dodie Fox Consult Reason/Comments: chest pain Do you want consulting provider notified?: Already Contacted Primary care physician: Ashlee Solo [facility] Course: 47-year-old male one of Dr. Solo's patient with past medical history of CAD post PCI and stent placement over 2 years ago who seen cardiology regular basis also had history of hypertension hyperlipidemia has been on medical management patient is more compliant watch himself carefully. He developed to have chest tightness and discomfort in midsternal area radiating toward the left upper side and the neck area symptom or associated with increased shortness of breath with minimum exertion along with palpitation mild lightheadedness and nausea. Symptoms were more severe and reminded him what happened last time when he had his angioplasty of the RCA and this LAD back in 2012. Soon as he arrived to the emergency room patient symptom resolved with nitroglycerin and he become chest pain free. Was started on heparin drip nitro and admitted to the hospital. Patient be seen cardiology and probably will be going for heart catheter in the meanwhile will keep doing CK with troponin times 3 repeat EKG. 05/09: Echocardiogram reveals EF of 50-55% LA mildly dilated at 29-33, mild mitral regurgitation, trace tricuspid regurgitation, no pulmonary hypertension. Patient is status post heart catheterization finding a chronically total occluded distal right coronary artery and right coronary artery fills by collaterals from the left coronary system, normal left main coronary artery, mild disease involving the left circumflex and mild disease in the left anterior descending with patent stent in the proximal LAD that has intermediate disease involving the ostial diagonal appeared to be unchanged. Recommendations are for conservative medical management. Dr. Lo is added in Ranexa and Imdur with plan for him to follow-up with Dr. JOSIAS Fox in the office. Patient will be discharged home today in stable condition. Discharge diagnoses: 1 unstable angina 2 CAD post to angioplasty and stent placement of the RCA and LAD has been seen Dr. JOSIAS Fox 3 hypertension 4 hyperlipidemia 5 severe GERD Discharge plan: Home Impression and plan of care have been directed as dictated by the signing physician. Zaida Joseph nurse practitioner acting as scribe for signing physician. Patient Condition at Discharge: Good Plan - Discharge Summary Discharge Rx Participant: No New Discharge Prescriptions: New Isosorbide Mononitrate ER [Imdur] 30 mg PO DAILY #30 tab.er.24h Ranolazine [Ranexa] 500 mg PO Q12HR #60 tab.er.12h Continue Metoprolol Tartrate [Lopressor] 25 mg PO BID Lisinopril [Zestril] 2.5 mg PO DAILY Atorvastatin Calcium [Lipitor] 40 mg PO HS Aspirin 81 mg PO DAILY Nitroglycerin Sl Tabs [Nitrostat] 0.4 mg SUBLINGUAL Q5M PRN #25 tab PRN Reason: Chest Pain Discharge Medication List Aspirin 81 mg PO DAILY 02/18/14 [History] Atorvastatin Calcium [Lipitor] 40 mg PO HS 02/18/14 [History] Lisinopril [Zestril] 2.5 mg PO DAILY 02/18/14 [History] Metoprolol Tartrate [Lopressor] 25 mg PO BID 02/18/14 [History] Nitroglycerin Sl Tabs [Nitrostat] 0.4 mg SUBLINGUAL Q5M PRN #25 tab 02/19/14 [Rx ] Isosorbide Mononitrate ER [Imdur] 30 mg PO DAILY #30 tab.er.24h 05/09/18 [Rx] Ranolazine [Ranexa] 500 mg PO Q12HR #60 tab.er.12h 05/09/18 [Rx] Follow up Appointment(s)/Referral(s): Dodie Fox MD [STAFF PHYSICIAN] - 05/15/18 3:15 pm Ashlee Solo MD [Primary Care Provider] - 1 Week (Pt to make follow-up appointment, office closed ) Patient Instructions/Handouts: Angina (DC), Left Heart Catheterization (DC) Discharge/Stand Alone Forms: Work/Release Restrictions Form Discharge Disposition: HOME SELF-CARE
--- NOTE | 2018-05-09 11:36 | P.PN ---
Subjective Progress Note Date: 05/09/18 This is a pleasant 47-year-old gentleman who sees Dr. JOSIAS Fox in the office as an outpatient with a past medical history significant for coronary artery disease and prior stenting of the LAD and RCA in 2012, hypertension, and dyslipidemia, as well as prior history of smoking, presented to the emergency room complaining of chest discomfort. EKG showed normal sinus rhythm with no acute changes and troponins were normal. Patient was advised to undergo cardiac catheterization, performed yesterday by Dr. Bear. Patient was found to have chronic total occlusion of the distal right coronary artery, the RCA does fill with collaterals from the left system. Normal left main coronary artery, mild disease in the circumflex, mild disease in the LAD with a patent stent. Medical therapy was advised. Patient was seen and examined this morning , denied any chest pain up ambulating without any difficulty. Blood pressure 140/80 with a heart rate in the 60s. CBC normal. Objective - Vital Signs Vital signs: Vital Signs Temp 97.5 F L 05/09/18 08:00 Pulse 64 05/09/18 08:00 Resp 16 05/09/18 08:00 BP 141/82 05/09/18 08:00 Pulse Ox 96 05/09/18 08:00 Intake & Output 05/08/18 05/09/18 05/09/18 18:59 06:59 18:59 Intake Total 290 1640 240 Balance 290 1640 240 Weight 94 kg Intake: IV 50 Intake, IV Titration 800 Amount Sodium Chloride 0.9% 1, 800 000 ml @ 100 mls/hr IV . Q10H KATHERIN Rx#:[id number] Oral 240 840 240 Other: Voiding Method Toilet # Voids 2 - Exam PHYSICAL EXAMINATION: GENERAL: 47-year-old gentleman in no acute distress at the time of my examination HEENT: Head is atraumatic, normocephalic. Pupils equal, round. Sclera anicteric. Conjunctiva are clear. Mucous membranes of the mouth are moist. Neck is supple. There is no elevated jugular venous pressure.] bruit is heard. HEART EXAMINATION: Heart S1, S2 normal. No murmur or gallop heard. CHEST EXAMINATION: Lungs are clear to auscultation and precussion. No chest wall tenderness is noted on palpation or with deep breathing. ABDOMEN: Soft, nontender. Bowel sounds are heard. No organomegaly noted. EXTREMITIES: 2+ peripheral pulses with no evidence of peripheral edema and no calf tenderness noted. Right radial site clean and dry, good distal pulse. NEUROLOGIC patient is awake, alert and oriented ?-3. . 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 We'll make him a follow-up appointment to see Dr. JOSIAS Fox in the office post discharge. DNP note has been reviewed, I agree with a documented findings and plan of care. Patient was seen and examined.
[2018-05-09] MEDS ORDERED: ATORVASTATIN 40 MG TAB PO SCH (21:00)
== END 2018-05-09 11:46 | disposition home or self-care (01) | DRG 287 ==
LOC: EC 14:44 → 6SEL 17:01 → OBSVTOIN 05-08 15:57
PROVIDERS: ADMIT Internal Medicine Geriatric Medicine; ATTEND Internal Medicine Geriatric Medicine
PROC: B211YZZ Fluoroscopy of Multiple Coronary Arteries using Other Contrast (ICD-10-PCS; 2018-05-08)
PROC: 4A023N7 Measurement of Cardiac Sampling and Pressure, Left Heart, Percutaneous Approach (ICD-10-PCS; principal; 2018-05-08 11:02)
DX: I25.110 Atherosclerotic heart disease of native coronary artery with unstable angina pectoris (principal); I25.82 Chronic total occlusion of coronary artery; E78.5 Hyperlipidemia, unspecified; I25.2 Old myocardial infarction; I10 Essential (primary) hypertension; I34.0 Nonrheumatic mitral (valve) insufficiency; R00.1 Bradycardia, unspecified; K21.9 Gastro-esophageal reflux disease without esophagitis; E78.00 Pure hypercholesterolemia, unspecified; Z79.82 Long term (current) use of aspirin; Z79.899 Other long term (current) drug therapy; Z95.5 Presence of coronary angioplasty implant and graft; Z87.891 Personal history of nicotine dependence; Z82.49 Family history of ischemic heart disease and other diseases of the circulatory system
CPT/HCPCS: 36415; 71046; 80053; 82550; 82553; 83735; 84484; 85025; 85610; 85730; 93306; 93458; 96361; 96365; 96366; 96368; 96375; 96376; 99285

== ENCOUNTER → 2018-07-20 | Outpatient (CLI) | payer BC ==
[2018-07-20 10:48] LABS: Basophils % (A) 0 %; Eosinophils # (A) 0.2 k/uL (0-0.7); Eosinophils % (A) 3 %; HCT 47.1 % (39.0-53.0); HGB 15.1 gm/dL (13.0-17.5); Lymphocytes # (A) 1.6 k/uL (1.0-4.8); Lymphocytes % (A) 22 %; MCH 28.7 pg (25.0-35.0); MCV 89.7 fL (80.0-100.0); Mean Platelet Volume 7.1; Monocytes # (A) 0.4 k/uL (0-1.0); Monocytes % (A) 6 %; Neutrophils # (A) 4.8 k/uL (1.3-7.7); Neutrophils % (A) 67 %; Platelet Count 195 k/uL (150-450); RBC 5.25 m/uL (4.30-5.90); RDW 13.3 % (11.5-15.5); WBC 7.2 k/uL (3.8-10.6)
[2018-07-20 11:13] LABS: ALT 44 U/L (21-72); AST 24 U/L (17-59); Albumin 4.2 g/dL (3.5-5.0); Alkaline Phosphatase 59 U/L (38-126); Anion Gap 8 mmol/L; Blood Urea Nitrogen 19 mg/dL (9-20); Calcium 9.1 mg/dL (8.4-10.2); Carbon Dioxide 24 mmol/L (22-30); Chloride 110 mmol/L (98-107); Cholesterol 99 mg/dL (<200); Glucose 111 mg/dL (74-99); HDL Cholesterol 33 mg/dL (40-60); LDL Cholesterol,Calculated 49 mg/dL (0-99); Potassium 4.5 mmol/L (3.5-5.1); Sodium 142 mmol/L (137-145); Total Bilirubin 0.8 mg/dL (0.2-1.3); Total Protein 7.6 g/dL (6.3-8.2); Triglycerides 85 mg/dL (<150)
[2018-07-20 11:26] LABS: T4, Free (Free Thyroxine) 0.84 ng/dL (0.78-2.19)
[2018-07-20 19:33] LABS: Hemoglobin A1C 5.4 % (4.0-6.0)
== END ==
LOC: LABWHC1 10:14
PROVIDERS: ATTEND Family Medicine
DX: Z00.00 Encounter for general adult medical examination without abnormal findings (principal); E78.5 Hyperlipidemia, unspecified; R73.01 Impaired fasting glucose; R21 Rash and other nonspecific skin eruption; Z98.61 Coronary angioplasty status
CPT/HCPCS: 36415; 80053; 80061; 82607; 83036; 83735; 84439; 84443; 85025

== ENCOUNTER → 2019-01-12 | Outpatient (CLI) | payer BC ==
[2019-01-12 10:29] LABS: Basophils % (A) 0 %; Eosinophils # (A) 0.3 k/uL (0-0.7); Eosinophils % (A) 5 %; HGB 14.9 gm/dL (13.0-17.5); Lymphocytes # (A) 1.7 k/uL (1.0-4.8); Lymphocytes % (A) 24 %; MCH 28.7 pg (25.0-35.0); MCHC 32.4 g/dL (31.0-37.0); MCV 88.6 fL (80.0-100.0); Mean Platelet Volume 7.7; Monocytes # (A) 0.6 k/uL (0-1.0); Monocytes % (A) 8 %; Neutrophils # (A) 4.3 k/uL (1.3-7.7); Neutrophils % (A) 61 %; Platelet Count 211 k/uL (150-450); RBC 5.19 m/uL (4.30-5.90); RDW 14.7 % (11.5-15.5); WBC 6.9 k/uL (3.8-10.6)
[2019-01-12 16:31] LABS: Albumin 4.4 g/dL (3.80-4.90); Albumin/Globulin Ratio 1.91 (1.60-3.17); Anion Gap 6.6 mmol/L (4.00-12.00); Calcium 9.1 mg/dL (8.7-10.3); Carbon Dioxide 24.4 mmol/L (21.6-31.8); Globulin 2.3 g/dL (1.6-3.3); LDL Cholesterol,Calculated 43.2 mg/dL (0.0-131.0); Potassium 4.6 mmol/L (3.5-5.5); Total Bilirubin 0.9 mg/dL (0.3-1.2); Total Protein 6.7 g/dL (6.2-8.2); VLDL Calculation 15.8 mg/dL (5.00-40.00)
== END | disposition home or self-care (01) ==
LOC: LABWHC1 09:25
PROVIDERS: ATTEND Family Medicine
DX: I25.10 Atherosclerotic heart disease of native coronary artery without angina pectoris (principal); R73.01 Impaired fasting glucose; E78.5 Hyperlipidemia, unspecified; I10 Essential (primary) hypertension; N40.0 Benign prostatic hyperplasia without lower urinary tract symptoms
CPT/HCPCS: 36415; 80053; 80061; 82550; 83036; 83735; 84153; 84443; 85025

== ENCOUNTER → 2019-06-07 | Outpatient (CLI) | payer BC ==
[2019-06-07 17:20] LABS: African American GFR (CKD) 114.2 (60.0-200.0); Albumin 4.2 g/dL (3.80-4.90); Albumin/Globulin Ratio 1.83 (1.60-3.17); Anion Gap 7.8 mmol/L (4.00-12.00); BUN/Creat Ratio 13.33 Ratio (12.00-20.00); Calcium 8.8 mg/dL (8.7-10.3); Carbon Dioxide 24.2 mmol/L (21.6-31.8); Globulin 2.3 g/dL (1.6-3.3); LDL Cholesterol,Calculated 48.2 mg/dL (0.0-131.0); Potassium 4.6 mmol/L (3.5-5.5); Total Protein 6.5 g/dL (6.2-8.2); VLDL Calculation 14.8 mg/dL (5.00-40.00)
[2019-06-07 19:31] LABS: Hemoglobin A1C 5.8 % (4.0-6.0)
== END | disposition home or self-care (01) ==
LOC: LABWHC1 09:13
PROVIDERS: ATTEND Internal Medicine
DX: I10 Essential (primary) hypertension (principal); E78.5 Hyperlipidemia, unspecified; N40.1 Benign prostatic hyperplasia with lower urinary tract symptoms; R00.1 Bradycardia, unspecified; R73.01 Impaired fasting glucose
CPT/HCPCS: 36415; 80053; 80061; 83036; 84153; 84443

== ENCOUNTER → 2019-09-27 | Outpatient (CLI) | payer BC ==
--- NOTE | 2019-09-27 10:30 | XR ---
EXAMINATION TYPE: XR sacroiliac joint comp BILAT DATE OF EXAM: 09/27/2019 COMPARISON: NONE HISTORY: Pain TECHNIQUE: 3 views submitted FINDINGS: SI joints symmetric. No erosive change or sclerosis. Visualized osseous structures intact. Mild diffuse osteopenia. IMPRESSION: No evidence of sacroiliitis.
--- NOTE | 2019-09-27 10:32 | XR ---
EXAM TYPE: LUMBAR SPINE X RAY SERIES COMPARISON: NONE HISTORY: Pain TECHNIQUE: 3views are submitted. FINDINGS: Alignment is anatomic. The pedicles are intact. The transverse processes are intact. There is no s pondylolisthesis. Multilevel hypertrophic changes seen with the mild degenerative disc disease L4-5. Facet arthropathy L4-5 and L5-S1. Vascular calcifications noted. Mild degenerative disc disease L2-L 3. Mild diffuse osteopenia. IMPRESSION: 1. Multilevel mild degenerative disc disease correlate with MRI if clinically warranted.
== END | disposition home or self-care (01) ==
LOC: RADXRMAIN 09:45
PROVIDERS: ATTEND Family Medicine
DX: M51.36 Other intervertebral disc degeneration, lumbar region (principal); G57.01 Lesion of sciatic nerve, right lower limb; M53.3 Sacrococcygeal disorders, not elsewhere classified
CPT/HCPCS: 72100; 72202

== ENCOUNTER → 2019-11-30 | Outpatient (CLI) | payer BC ==
--- NOTE | 2019-11-30 08:57 | MR ---
EXAMINATION TYPE: MR lumbar spine wo con DATE OF EXAM: 11/30/2019 COMPARISON: NONE HISTORY: lumbar disc displacement TECHNIQUE: T1 and T2 axial and sagittal images of the lumbar spine are submitted. FINDINGS: There is no abnormal signal seen within the visualized spinal cord or paraspinal soft tissu es. Multilevel degenerative disc disease and loss of normal cervical lordosis. At L1-2 there is no disc herniation or canal stenosis and minimal central disc bulging. No foraminal encroachment. At L2-3 there is degenerative disc disease with broad-based disc protrusion mildly effacing the theca l sac. There is hypertrophy of the facets and ligamentum flavum resulting in mild canal stenosis and bilateral foraminal approach. At L3-4 there is degenerative disc disease with broad-based disc protrusion and effacement of thecal sac. Hypertrophic changes of the facets and ligamentum flavum results in mild canal stenosis and bila teral mild foraminal encroachment. At L4-5 there is degenerative disc disease with focal broad-based right paracentral disc herniation e xtending laterally to the right. Moderate right-sided foraminal encroachment. There is canal stenosis to the thecal sac compression, facet arthropathy and ligamentum flavum hypertrophy. At L5-S1 there is degenerative disc disease with central disc small protrusion. No canal stenosis. Mi ld bilateral foraminal encroachment and facet arthropathy. IMPRESSION: 1. Broad-based right paracentral disc herniation L4-L5 with right-sided foraminal encroachment. Corre late for right-sided radiculopathy at this level. 2. Multilevel degenerative disc disease with disc protrusions at levels L2-3, L3-4 resulting in mild canal stenosis and mild foraminal bilaterally. 3. Degenerative disc disease facet arthropathy L5-S1 with central disc bulging. No canal stenosis. Mi ld bilateral foraminal encroachment.
== END | disposition home or self-care (01) ==
LOC: RADMRIMAIN 08:02
PROVIDERS: ATTEND Family Medicine
DX: M48.061 Spinal stenosis, lumbar region without neurogenic claudication (principal); M51.26 Other intervertebral disc displacement, lumbar region; M51.36 Other intervertebral disc degeneration, lumbar region; M46.96 Unspecified inflammatory spondylopathy, lumbar region
CPT/HCPCS: 72148

== ENCOUNTER → 2019-12-06 | Outpatient (CLI) | payer BC ==
[2019-12-06 10:17] LABS: Basophils # (A) 0.1 k/uL (0-0.2); Basophils % (A) 0 %; Eosinophils # (A) 0.1 k/uL (0-0.7); Eosinophils % (A) 1 %; Lymphocytes # (A) 1.4 k/uL (1.0-4.8); Lymphocytes % (A) 10 %; MCH 29.1 pg (25.0-35.0); MCHC 31.1 g/dL (31.0-37.0); MCV 93.5 fL (80.0-100.0); Mean Platelet Volume 7.4; Monocytes # (A) 0.8 k/uL (0-1.0); Monocytes % (A) 6 %; Neutrophils # (A) 11.8 k/uL (1.3-7.7); Neutrophils % (A) 82 %; Platelet Count 188 k/uL (150-450); RBC 4.81 m/uL (4.30-5.90); RDW 14.8 % (11.5-15.5); WBC 14.5 k/uL (3.8-10.6)
[2019-12-06 16:38] LABS: African American GFR (CKD) 119.9 (60.0-200.0); Albumin 4.2 g/dL (3.80-4.90); Albumin/Globulin Ratio 2.1 (1.60-3.17); Anion Gap 6.4 mmol/L (4.00-12.00); BUN/Creat Ratio 22.5 Ratio (12.00-20.00); Calcium 8.9 mg/dL (8.7-10.3); Carbon Dioxide 23.6 mmol/L (21.6-31.8); Chol/HDL Ratio 2.52; LDL Cholesterol,Calculated 66.6 mg/dL (0.0-131.0); Non-African American GFR(CKD) 103.4 (60.0-200.0); Potassium 4.8 mmol/L (3.5-5.5); Total Bilirubin 0.8 mg/dL (0.2-1.2); Total Protein 6.2 g/dL (6.2-8.2); VLDL Calculation 12.4 mg/dL (5.00-40.00)
[2019-12-06 16:45] LABS: T4, Free (Free Thyroxine) 1.1 ng/dL (0.80-1.80)
[2019-12-06 22:21] LABS: Hemoglobin A1C 5.4 % (4.0-6.0)
== END | disposition home or self-care (01) ==
LOC: LABWHC1 09:32
PROVIDERS: ATTEND Family Medicine
DX: I10 Essential (primary) hypertension (principal); I25.10 Atherosclerotic heart disease of native coronary artery without angina pectoris; E78.5 Hyperlipidemia, unspecified; R73.01 Impaired fasting glucose
CPT/HCPCS: 36415; 80053; 80061; 82550; 83036; 84439; 84443; 85025

== ENCOUNTER 2019-12-13 15:30 | Observation (INO) | payer BC ==
[2019-12-13] MEDS ORDERED: SODIUM CHLORIDE 0.9% 1,000 ML IV STA ×2 (15:51)
[2019-12-13 16:03] LABS: Basophils % (A) 0 %; Eosinophils # (A) 0.2 k/uL (0-0.7); Eosinophils % (A) 1 %; HCT 34.9 % (39.0-53.0); HGB 11.1 gm/dL (13.0-17.5); Lymphocytes # (A) 1.5 k/uL (1.0-4.8); Lymphocytes % (A) 12 %; MCH 29.8 pg (25.0-35.0); MCHC 31.9 g/dL (31.0-37.0); MCV 93.3 fL (80.0-100.0); Mean Platelet Volume 7.9; Monocytes # (A) 0.9 k/uL (0-1.0); Monocytes % (A) 7 %; Neutrophils % (A) 78 %; Platelet Count 188 k/uL (150-450); RBC 3.74 m/uL (4.30-5.90); RDW 15.1 % (11.5-15.5); WBC 12.8 k/uL (3.8-10.6)
[2019-12-13] MEDS ORDERED: KETOROLAC 30 MG/ML 1 ML VIAL IVP STA (16:07)
[2019-12-13 16:11] LABS: INR 0.9 (<1.2); Prothrombin Time 9.9 sec (9.0-12.0)
[2019-12-13 16:12] LABS: ALT 40 U/L (4-49); AST 23 U/L (17-59); African American GFR (CKD) >90 (>60 ml/min/1.73 sqM); Albumin 3.9 g/dL (3.5-5.0); Alkaline Phosphatase 45 U/L (38-126); Anion Gap 7 mmol/L; Blood Urea Nitrogen 29 mg/dL (9-20); Calcium 8.5 mg/dL (8.4-10.2); Carbon Dioxide 23 mmol/L (22-30); Chloride 108 mmol/L (98-107); Glucose 93 mg/dL (74-99); Non-African American GFR(CKD) >90 (>60 ml/min/1.73 sqM); Potassium 3.9 mmol/L (3.5-5.1); Sodium 138 mmol/L (137-145); Total Bilirubin 0.4 mg/dL (0.2-1.3); Total Protein 6.4 g/dL (6.3-8.2)
--- NOTE | 2019-12-13 16:25 | ED ---
Dizziness HPI - General Chief Complaint: Dizziness Stated Complaint: SOB Time Seen by Provider: 12/13/19 15:38 Source: patient, RN notes reviewed, old records reviewed Mode of arrival: wheelchair Limitations: no limitations - History of Present Illness Initial Comments: Patient is a 49-year-old male who presented today for evaluation for near syncopal episodes twice today. Once he was getting ready for work and another time at work. Patient reports he isn't dealing with sciatic pain worsening for the past few months. Patient does have an extensive heart heart history and reports that he has had 5 stents. He denies any chest pain today. Patient reports that he's been feeling very dizzy and lightheaded with standing. Patient also complains of occasional shortness of breath with exertion. 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 Complaint: dizziness Onset/Timin -: days(s) - Related Data Home Medications Medication Instructions Recorded Confirmed Aspirin 81 mg PO DAILY 02/18/14 05/07/18 Atorvastatin Calcium [Lipitor] 40 mg PO HS 02/18/14 05/07/18 Lisinopril [Zestril] 2.5 mg PO DAILY 02/18/14 05/07/18 Metoprolol Tartrate [Lopressor] 25 mg PO BID 02/18/14 05/07/18 Previous Rx's Medication Instructions Recorded Nitroglycerin Sl Tabs [Nitrostat] 0.4 mg SUBLINGUAL Q5M PRN #25 tab 02/19/14 Isosorbide Mononitrate ER [Imdur] 30 mg PO DAILY #30 tab.er.24h 05/09/18 Ranolazine [Ranexa] 500 mg PO Q12HR #60 tab.er.12h 05/09/18 Allergies Allergy/AdvReac Type Severity Reaction Status Date / Time No Known Allergies Allergy Verified 12/13/19 15:34 Review of Systems ROS Statement: Those systems with pertinent positive or pertinent negative responses have been documented in the HPI. ROS Other: All systems not noted in ROS Statement are negative. Past Medical History Past Medical History: Chest Pain / Angina, Hyperlipidemia, Hypertension, Myocardial Infarction ([place]) Last Myocardial Infarction Date:: February 2013 History of Any Multi-Drug Resistant Organisms: None Reported Past Surgical History: Heart Catheterization With Stent Past Anesthesia/Blood Transfusion Reactions: No Reported Reaction Date of Last Stent Placement:: February 2013 Past Psychological History: No Psychological Hx Reported Smoking Status: Former smoker Past Alcohol Use History: Occasional Past Drug Use History: None Reported - Past Family History Father Family Medical History: Myocardial Infarction ([place]) General Exam - General Exam Comments Initial Comments: 49-year-old male. Alert and oriented 3. Limitations: no limitations General appearance: alert, in no apparent distress Head exam: Present: atraumatic, normocephalic, normal inspection Eye exam: Present: normal appearance, PERRL, EOMI. Absent: scleral icterus, conjunctival injection, periorbital swelling ENT exam: Present: normal exam Neck exam: Present: normal inspection. Absent: tenderness, meningismus, lymphadenopathy Respiratory exam: Present: normal lung sounds bilaterally. Absent: respiratory distress, wheezes, rales, rhonchi, stridor Cardiovascular Exam: Present: regular rate, normal rhythm, normal heart sounds. Absent: systolic murmur, diastolic murmur, rubs, gallop, clicks GI/Abdominal exam: Present: soft, normal bowel sounds. Absent: distended, tenderness, guarding, rebound, rigid Extremities exam: Present: normal inspection, full ROM, normal capillary refill. Absent: tenderness, pedal edema, joint swelling, calf tenderness Back exam: Present: normal inspection Neurological exam: Present: alert, oriented X3, CN II-XII intact Psychiatric exam: Present: normal affect, normal mood Course Vital Signs 12/13/19 12/13/19 15:32 16:12 Temperature 98.0 F Pulse Rate 85 Pulse Rate [ 89 Sitting] Pulse Rate [ 106 H Standing] Pulse Rate [ 77 Supine] Respiratory 20 Rate Blood Pressure 131/89 Blood Pressure 114/80 [Sitting] Blood Pressure 133/89 [Standing] Blood Pressure 129/93 [Supine] O2 Sat by Pulse 100 Oximetry Medical Decision Making - Medical Decision Making 49-year-old male presents for his pharmacy of dizziness, and near syncopal episodes with standing twice today. He has extensive cardiac history. He also complains of some shortness of breath with exertion for the past few weeks. At this time patient's labs reveal an EKG shows no acute changes. Due to patient's extensive history and concern for syncope we will admit the Patient. Discussed the case with Dr. Hilario who discussed the case with Dr. Solo. [place] the Patient with consults to patient's ticker installer. Patient is agreeable to this with repeat troponin testing. On emergency department he did complain of some minor sciatic nerve pain that was well managed with Toradol. - Lab Data Result diagrams: 12/13/19 15:44 12/13/19 15:44 Lab Results 12/13/19 12/13/19 12/13/19 Range/Units 15:44 15:44 15:44 WBC 12.8 H (3.8-10.6) k/uL RBC 3.74 L (4.30-5.90) m/uL Hgb 11.1 L (13.0-17.5) gm/dL Hct 34.9 L (39.0-53.0) % MCV 93.3 (80.0-100.0) fL MCH 29.8 (25.0-35.0) pg MCHC 31.9 (31.0-37.0) g/dL RDW 15.1 (11.5-15.5) % Plt Count 188 (150-450) k/uL Neutrophils % 78 % Lymphocytes % 12 % Monocytes % 7 % Eosinophils % 1 % Basophils % 0 % Neutrophils # 10.0 H (1.3-7.7) k/uL Lymphocytes # 1.5 (1.0-4.8) k/uL Monocytes # 0.9 (0-1.0) k/uL Eosinophils # 0.2 (0-0.7) k/uL Basophils # 0.0 (0-0.2) k/uL PT (9.0-12.0) sec INR (<1.2) Sodium 138 (137-145) mmol/L Potassium 3.9 (3.5-5.1) mmol/L Chloride 108 H (98-107) mmol/L Carbon Dioxide 23 (22-30) mmol/L Anion Gap 7 mmol/L BUN 29 H (9-20) mg/dL Creatinine 0.79 (0.66-1.25) mg/dL Est GFR (CKD-EPI)AfAm >90 (>60 ml/min/1.73 sqM) Est GFR (CKD-EPI)NonAf >90 (>60 ml/min/1.73 sqM) Glucose 93 (74-99) mg/dL Plasma Lactic Acid [place] 1.3 (0.7-2.0) mmol/L Calcium 8.5 (8.4-10.2) mg/dL Total Bilirubin 0.4 (0.2-1.3) mg/dL AST 23 (17-59) U/L ALT 40 (4-49) U/L Alkaline Phosphatase 45 (38-126) U/L Troponin I (0.000-0.034) ng/mL Total Protein 6.4 (6.3-8.2) g/dL Albumin 3.9 (3.5-5.0) g/dL 12/13/19 12/13/19 Range/Units 15:44 15:44 WBC (3.8-10.6) k/uL RBC (4.30-5.90) m/uL Hgb (13.0-17.5) gm/dL Hct (39.0-53.0) % MCV (80.0-100.0) fL MCH (25.0-35.0) pg MCHC (31.0-37.0) g/dL RDW (11.5-15.5) % Plt Count (150-450) k/uL Neutrophils % % Lymphocytes % % Monocytes % % Eosinophils % % Basophils % % Neutrophils # (1.3-7.7) k/uL Lymphocytes # (1.0-4.8) k/uL Monocytes # (0-1.0) k/uL Eosinophils # (0-0.7) k/uL Basophils # (0-0.2) k/uL PT 9.9 (9.0-12.0) sec INR 0.9 (<1.2) Sodium (137-145) mmol/L Potassium (3.5-5.1) mmol/L Chloride (98-107) mmol/L Carbon Dioxide (22-30) mmol/L Anion Gap mmol/L BUN (9-20) mg/dL Creatinine (0.66-1.25) mg/dL Est GFR (CKD-EPI)AfAm (>60 ml/min/1.73 sqM) Est GFR (CKD-EPI)NonAf (>60 ml/min/1.73 sqM) Glucose (74-99) mg/dL Plasma Lactic Acid [place] (0.7-2.0) mmol/L Calcium (8.4-10.2) mg/dL Total Bilirubin (0.2-1.3) mg/dL AST (17-59) U/L ALT (4-49) U/L Alkaline Phosphatase (38-126) U/L Troponin I <0.012 (0.000-0.034) ng/mL Total Protein (6.3-8.2) g/dL Albumin (3.5-5.0) g/dL - Radiology Data Radiology results: report reviewed Chest x-ray shows no acute cardio pulmonary process. Disposition Clinical Impression: Syncope, Unstable angina Disposition: ADMITTED IP TO THIS HOSP Condition: Stable Is patient prescribed a controlled substance at d/c from ED?: No Referrals: Ashlee Solo MD [Primary Care Provider] - 1-2 days Time of Disposition: 18:31
--- NOTE | 2019-12-13 17:24 | XR ---
EXAMINATION TYPE: XR chest 2V DATE OF EXAM: 12/13/2019 COMPARISON: 05/07/2018 HISTORY: 69-year-old male with dizziness and shortness of breath TECHNIQUE: PA and lateral views FINDINGS: The cardiomediastinal silhouette, aorta, and pulmonary vasculature are within normal limits strandy a telectasis lower lungs. No consolidation or pleural effusion. Coronary stent seems to be present on t he lateral projection. IMPRESSION: No acute cardiopulmonary process.
[2019-12-13] MEDS ORDERED: NITROGLYCERIN SL TABS 0.4 MG TAB SUBLINGUAL PRN ×2 (18:13→22:39)
[2019-12-13] MEDS ORDERED: ASPIRIN 81 MG PO STA (18:13)
[2019-12-13 19:59] VITALS: RESP 18
[2019-12-13] MEDS ORDERED: CYCLOBENZAPRINE 10 MG TAB PO PRN (22:39)
[2019-12-13] MEDS ORDERED: HYDROcodone/APAP 7.5-325MG 1 EACH TAB PO PRN (22:39)
[2019-12-13 23:31] LABS: Appearance,Urine Clear (Clear); Bilirubin,Urine Negative (Negative); Blood,Urine Negative (Negative); Color,Urine Light Yellow; Glucose,Urine (UA) Negative (Negative); Ketones,Urine Negative (Negative); Leukocyte Esterase,Urine Negative (Negative); Nitrite,Urine Negative (Negative); Protein,Urine Negative (Negative); Specific Gravity,Urine 1.014 (1.001-1.035); Urobilinogen,Urine <2.0 mg/dL (<2.0)
[2019-12-14 04:59] LABS: Cholesterol 96 mg/dL (<200); HDL Cholesterol 32 mg/dL (40-60); LDL Cholesterol,Calculated 46 mg/dL (0-99); Triglycerides 88 mg/dL (<150)
[2019-12-14] MEDS ORDERED: ASPIRIN 81 MG PO SCH (09:00)
[2019-12-14] MEDS ORDERED: ASPIRIN 325 MG TAB PO SCH (09:00)
[2019-12-14] MEDS ORDERED: TICAGRELOR 90 MG TAB PO SCH (09:00)
[2019-12-14] MEDS ORDERED: SODIUM CHLORIDE 0.9% 1,000 ML IV SCH (09:00)
[2019-12-14] MEDS ORDERED: ATORVASTATIN 40 MG TAB PO SCH (09:00)
[2019-12-14] MEDS ORDERED: PREGABALIN 25 MG CAP PO SCH (09:00)
[2019-12-14] MEDS ORDERED: METOPROLOL TARTRATE 25 MG TAB PO SCH (09:00)
[2019-12-14] MEDS ORDERED: KETOROLAC 30 MG/ML 1 ML VIAL IVP STA (10:32)
[2019-12-14] MEDS ORDERED: MELOXICAM 7.5 MG TAB PO SCH (11:00)
--- NOTE | 2019-12-14 11:56 | P.CRDCN ---
History of Present Illness History of present illness: HISTORY OF PRESENTING ILLNESS This is a pleasant 49-year-old male past medical history significant for coronary artery disease status post PCI of the LAD and RCA in the setting of a myocardial infarction in 2012, hypertension, dyslipidemia and former nicotine dependence. He follows in the office with Dr. Fox. We have been asked to see in consultation for near syncope. He states yesterday morning he woke up feeling in his normal state of health. He walks to the bathroom and started feeling acutely lightheaded like he was going to pass out. He also became extremely diaphoretic and weak. He Back to his bed and lay down. His symptoms did improve. He went to work and while he was at work walking he had a similar type experience. He became acutely diaphoretic he felt generally weak and fatigued like he was going to pass out. He states it felt like everything was fading out. He denies having had any symptoms of chest discomfort, shortness of breath, palpitations or nausea. The symptoms have completely subsided and she had no further episodes since arriving at the hospital. He underwent repeat cardiac catheterization April 2018 revealing a patent stent in the proximal RCA, mid RCA has mild disease only, distally there is a long tubular lesion extending from the midportion all the way to the distal which is 100% occluded on a short portion, left main angiographically normal, circumflex with mild disease only, LAD with mild disease, proximal stent is patent, diagonal branch with moderate disease at the ostium. DIAGNOSTICS EKG reveals sinus mechanism with no acute ST or T wave abnormalities noted. Telemetry tracings unremarkable for arrhythmia. Chest xray negative for an acute cardiopulmonary process. Laboratory reviewed, WBC 12.8, hemoglobin 11.1, platelets 188, d-dimer 0.6, sodium 138, potassium 3.9, creatinine 0.79, cardiac enzymes negative 3, LDL 46. Current cardiac medications include aspirin 81 mg daily, atorvastatin 40 mg daily, Lopressor 25 mg twice a day and brilinta 90 mg twice a day. REVIEW OF SYSTEMS At the time of my exam: CONSTITUTIONAL: Denies fever or chills. CARDIOVASCULAR: Denies chest pain, shortness of breath, orthopnea, PND or palpitations. RESPIRATORY: Denies cough. GASTROINTESTINAL: Denies abdominal pain, diarrhea, constipation, nausea or vomiting. MUSCULOSKELETAL: Denies myalgias. NEUROLOGIC: Denies numbness, tingling or weakness. ENDOCRINE: Denies fatigue, weight change, polydipsia or polyurina. GENITOURINARY: Denies burning, hematuria or urgency with micturation. HEMATOLOGIC: Denies history of anemia or bleeding. PHYSICAL EXAMINATION Blood pressure 127/76 heart rate 70 afebrile and maintaining oxygen saturation on room air. CONSTITUTIONAL: No apparent distress. HEENT: Head is normocephalic. Pupils are equal, round. Sclerae anicteric. Mucous membranes of the mouth are moist. No JVD. No carotid bruit. CHEST EXAMINATION: Lungs are clear to auscultation. No chest wall tenderness is noted on palpation or with deep breathing. HEART EXAMINATION: Regular rate and rhythm. S1, S2 heard. No murmurs, gallops or rub. ABDOMEN: Soft, nontender. Positive bowel sounds. EXTREMITIES: 2+ peripheral pulses, no lower extremity edema and no calf tenderness. NEUROLOGIC EXAMINATION: Patient is awake, alert and oriented x3. ASSESSMENT Near syncope, appears vasovagal in nature Leukocytosis History of coronary artery disease in the setting of a myocardial infarction status post PCI Hypertension Dyslipidemia Former nicotine dependence PLAN Obtain 2-D echocardiogram and Doppler study to assess cardiac structure and function. Perform tilt table test to assess for chronotropic response and orthostatic changes. Recommend outpatient event monitoring, event monitor can be picked up from the office upon discharge for 2 weeks. Follow in the office with Dr. Fox in 2-3 weeks, may require outpatient stress testing if symptoms persist and event monitoring is unremarkable. Thank you kindly for this consultation. Nurse Practitioner note has been reviewed, I agree with a documented findings and plan of care. Patient was seen and examined. Past Medical History Past Medical History: Chest Pain / Angina, Hyperlipidemia, Hypertension, Myocardial Infarction (ME) Last Myocardial Infarction Date:: February 2013 History of Any Multi-Drug Resistant Organisms: None Reported Past Surgical History: Heart Catheterization With Stent Past Anesthesia/Blood Transfusion Reactions: No Reported Reaction Date of Last Stent Placement:: February 2013 Past Psychological History: No Psychological Hx Reported Smoking Status: Former smoker Past Alcohol Use History: Occasional Past Drug Use History: None Reported - Past Family History Father Family Medical History: Myocardial Infarction (ME) Medications and Allergies Home Medications Medication Instructions Recorded Confirmed Type Atorvastatin Calcium [Lipitor] 40 mg PO DAILY 02/18/14 12/13/19 History Metoprolol Tartrate [Lopressor] 25 mg PO BID 02/18/14 12/13/19 History Nitroglycerin Sl Tabs [Nitrostat] 0.4 mg SUBLINGUAL Q5M PRN #25 tab 02/19/14 12/13/19 Rx Aspirin EC [Ecotrin Low Dose] 81 mg PO DAILY 12/13/19 12/13/19 History Cyclobenzaprine [Flexeril] 5 mg PO TID PRN 12/13/19 12/13/19 History HYDROcodone/APAP 7.5-325MG [[place] 1 tab PO BID PRN 12/13/19 12/13/19 History 7.5-325] Pregabalin [Lyrica] 25 mg PO BID 12/13/19 12/13/19 History Ticagrelor [Brilinta] 90 mg PO BID 12/13/19 12/13/19 History Allergies Allergy/AdvReac Type Severity Reaction Status Date / Time No Known Allergies Allergy Verified 12/13/19 18:50 Physical Exam Vitals: Vital Signs Temp Pulse Pulse Pulse Pulse Pulse Resp 12/14/19 07:25 97.7 F 70 18 12/14/19 05:00 98.4 F 65 18 12/14/19 04:00 84 18 12/14/19 00:00 98.0 F 70 18 12/13/19 21:31 71 18 12/13/19 20:35 97.8 F 71 18 12/13/19 19:58 72 18 12/13/19 16:12 89 106 H 77 12/13/19 15:32 98.0 F 85 20 BP BP BP BP BP Pulse Ox 12/14/19 07:25 127/76 100 12/14/19 05:00 108/72 97 12/14/19 04:00 12/14/19 00:00 128/76 99 12/13/19 21:31 12/13/19 20:35 144/94 100 12/13/19 19:58 114/72 96 12/13/19 16:12 114/80 133/89 129/93 12/13/19 15:32 131/89 100 Intake and Output 12/13/19 12/14/19 12/14/19 22:59 06:59 14:59 Intake Total 675 Balance 675 Intake: Intake, IV Titration 675 Amount Sodium Chloride 0.9% 1, 675 000 ml @ 75 mls/hr IV . [id number] STA Rx#:[id number] Other: # Voids 1 Weight 97.4 kg Results 12/13/19 15:44 12/13/19 15:44 Cardiac Enzymes 12/13/19 12/13/19 12/13/19 Range/Units 15:44 15:44 21:02 AST 23 (17-59) U/L Troponin I <0.012 <0.012 (0.000-0.034) ng/mL 12/14/19 Range/Units 04:07 AST (17-59) U/L Troponin I <0.012 (0.000-0.034) ng/mL Coagulation 12/13/19 Range/Units 15:44 PT 9.9 (9.0-12.0) sec Lipids 12/14/19 Range/Units 04:07 Triglycerides 88 (<150) mg/dL Cholesterol 96 (<200) mg/dL HDL Cholesterol 32 L (40-60) mg/dL CBC 12/13/19 Range/Units 15:44 WBC 12.8 H (3.8-10.6) k/uL RBC 3.74 L (4.30-5.90) m/uL Hgb 11.1 L (13.0-17.5) gm/dL Hct 34.9 L (39.0-53.0) % Plt Count 188 (150-450) k/uL Comprehensive Metabolic Panel 12/13/19 Range/Units 15:44 Sodium 138 (137-145) mmol/L Potassium 3.9 (3.5-5.1) mmol/L Chloride 108 H (98-107) mmol/L Carbon Dioxide 23 (22-30) mmol/L BUN 29 H (9-20) mg/dL Creatinine 0.79 (0.66-1.25) mg/dL Glucose 93 (74-99) mg/dL Calcium 8.5 (8.4-10.2) mg/dL AST 23 (17-59) U/L ALT 40 (4-49) U/L Alkaline Phosphatase 45 (38-126) U/L Total Protein 6.4 (6.3-8.2) g/dL Albumin 3.9 (3.5-5.0) g/dL Current Medications Generic Name Dose Route Start Last Admin Trade Name Freq PRN Reason Stop Dose Admin Hydrocodone Bitart/Acetaminophen 1 each 12/13/19 22:39 12/13/19 23:10 [place] 7.5-325 PO 1 each BID PRN Administration Pain Aspirin 81 mg 12/14/19 09:00 Aspirin PO DAILY [facility] Atorvastatin Calcium 40 mg 12/14/19 09:00 Lipitor PO DAILY [facility] Cyclobenzaprine HCl 5 mg 12/13/19 22:39 12/14/19 05:55 Flexeril PO 5 mg TID PRN Administration Muscle Pain Metoprolol Tartrate 25 mg 12/14/19 09:00 Lopressor PO BID [facility] Nitroglycerin 0.4 mg 12/13/19 18:13 Nitrostat SUBLINGUAL Q5M PRN Chest Pain Nitroglycerin 0.4 mg 12/13/19 22:39 Nitrostat SUBLINGUAL Q5M PRN Chest Pain Pregabalin 25 mg 12/14/19 09:00 Lyrica PO BID [facility] Ticagrelor 90 mg 12/14/19 09:00 Brilinta PO BID [facility] Intake and Output 12/13/19 12/14/19 12/14/19 22:59 06:59 14:59 Intake Total 675 Balance 675 Intake: Intake, IV Titration 675 Amount Sodium Chloride 0.9% 1, 675 000 ml @ 75 mls/hr IV . [id number] STA Rx#:[id number] Other: # Voids 1 Weight 97.4 kg 12/13/19 15:44 12/13/19 15:44
--- NOTE | 2019-12-14 13:52 | P.HPIM ---
History of Present Illness H&P Date: 12/14/19 Chief Complaint: Near syncopal episodes This is a 49-year-old male patient of Dr. Solo and Dr. JOSIAS Fox with past medical history of hypertension, hyperlipidemia, ND in 2013 status post PCI and stenting followed by stent placement in the RCA and LAD in 2018, severe GERD. P atient states that he was relaxing laying down and had episode of syncope that lasted for a few seconds. He had a second episode. He has never had these symptoms before. He denies any recent medication changes. He denies any chest pain or pressure. He did experience cold sweats. No nausea no palpitations, no dizziness. Patient states that he has had ongoing problems with sciatica and taking Lyrica, [place] and Flexeril. Patient came into [facility] emergency [facility] for evaluation. He was afebrile, blood pressure 131/89, heart rate 85, pulse ox 100%. Orthostatic vital signs were negative. EKG was a sinus rhythm with no acute ST- T wave changes. WBC 12.8, hemoglobin 11.1, platelet count 188. Sodium 138, potassium 3.9, chloride 108, CO2 23, BUN 29 creatinine 0.79, blood sugar 93. Lactic acid 1.3. Liver function tests were normal, troponin 0.012. Chest x-ray showed no acute cardiopulmonary process. Patient was placed on the observation unit and cardiology consult requested. D-dimer 0.26. Repeat troponins are negative on 2 more draws. Triglycerides 88, cholesterol 96, LDL 46, HDL 32. Urinalysis clear negative for infection. Patient has been seen by cardiology with recommendations for tilt table test and echocardiogram, event monitor to be picked up in the office at time of discharge and follow-up with Dr. JOSIAS Fox in 2-3 weeks. Patient may require stress testing if symptoms persist. Tilt table test revealed a 12-lead EKG showing isolated Q wave in lead 2. No evidence of neurocardiogenic syncope or dysautonomia. Patient has been cleared for discharge by cardiology. No medication changes have been made. Patient will be discharged home in stable condition. Review of Systems Constitutional: Denies anorexia, Denies chills, Denies fatigue, Denies fever, Denies lethargy, Denies malaise, Denies poor appetite, Denies weakness Ears, nose, mouth and throat: Denies dysphagia, Denies epistaxis, Denies nasal congestion, Denies nasal discharge, Denies vertigo Cardiovascular: Reports syncope, Denies chest pain, Denies dyspnea on exertion, Denies edema, Denies irregular heart beat, Denies leg edema, Denies lightheadedness, Denies palpitations, Denies shortness of breath Respiratory: Denies cough, Denies cough with sputum, Denies dyspnea, Denies excessive sputum, Denies hemoptysis, Denies home oxygen, Denies respiratory infections, Denies wheezing Gastrointestinal: Denies abdominal pain, Denies diarrhea, Denies loss of appetite, Denies nausea, Denies vomiting Genitourinary: Denies dysuria, Denies urinary retention Musculoskeletal: Reports low back pain, Denies myalgias Integumentary: Denies pruritus, Denies rash, Denies wounds Neurological: Denies change in mentation, Denies change in speech, Denies numbness, Denies weakness Psychiatric: Denies anxiety, Denies depression Endocrine: Denies fatigue, Denies weight change Past Medical History Past Medical History: Chest Pain / Angina, Hyperlipidemia, Hypertension, Myocardial Infarction (ND) Last Myocardial Infarction Date:: February 2013 History of Any Multi-Drug Resistant Organisms: None Reported Past Surgical History: Heart Catheterization With Stent Past Anesthesia/Blood Transfusion Reactions: No Reported Reaction Date of Last Stent Placement:: February 2013 Past Psychological History: No Psychological Hx Reported Smoking Status: Former smoker Past Alcohol Use History: Occasional Additional Past Alcohol Use History / Comment(s): Patient was a smoker and quit 20 years ago. Patient denies having any marijuana use, street drug use. He drinks alcohol occasionally with 1-2 beers. Patient works in a factory. Past Drug Use History: None Reported - Past Family History Father Family Medical History: Myocardial Infarction (ND) Additional Family Medical History / Comment(s): Father at 70 from CVA. Mother Additional Family Medical History / Comment(s): Mother in her early 70s fro m combination is from diabetes. Sister(s) Additional Family Medical History / Comment(s): Patient has 3 sisters and one has history of coronary artery disease but no stents placed. He has 4 brothers. Patient has one son with no major medical problems. Medications and Allergies Home Medications Medication Instructions Recorded Confirmed Type Atorvastatin Calcium [Lipitor] 40 mg PO DAILY 02/18/14 12/13/19 History Metoprolol Tartrate [Lopressor] 25 mg PO BID 02/18/14 12/13/19 History Nitroglycerin Sl Tabs [Nitrostat] 0.4 mg SUBLINGUAL Q5M PRN #25 tab 02/19/14 12/13/19 Rx Aspirin EC [Ecotrin Low Dose] 81 mg PO DAILY 12/13/19 12/13/19 History Cyclobenzaprine [Flexeril] 5 mg PO TID PRN 12/13/19 12/13/19 History HYDROcodone/APAP 7.5-325MG [[place] 1 tab PO BID PRN 12/13/19 12/13/19 History 7.5-325] Pregabalin [Lyrica] 25 mg PO BID 12/13/19 12/13/19 History Ticagrelor [Brilinta] 90 mg PO BID 12/13/19 12/13/19 History Allergies Allergy/AdvReac Type Severity Reaction Status Date / Time No Known Allergies Allergy Verified 12/13/19 18:50 Physical Exam Vitals: Vital Signs Temp Pulse Pulse Pulse Pulse Pulse Resp 12/14/19 07:25 97.7 F 70 18 12/14/19 05:00 98.4 F 65 18 12/14/19 04:00 84 18 12/14/19 00:00 98.0 F 70 18 12/13/19 21:31 71 18 12/13/19 20:35 97.8 F 71 18 12/13/19 19:58 72 18 12/13/19 16:12 89 106 H 77 12/13/19 15:32 98.0 F 85 20 BP BP BP BP BP Pulse Ox 12/14/19 07:25 127/76 100 12/14/19 05:00 108/72 97 12/14/19 04:00 12/14/19 00:00 128/76 99 12/13/19 21:31 12/13/19 20:35 144/94 100 12/13/19 19:58 114/72 96 12/13/19 16:12 114/80 133/89 129/93 12/13/19 15:32 131/89 100 Intake and Output 12/13/19 12/14/19 12/14/19 22:59 06:59 14:59 Intake Total 675 Balance 675 Intake: Intake, IV Titration 675 Amount Sodium Chloride 0.9% 1, 675 000 ml @ 75 mls/hr IV . [id number] STA Rx#:[id number] Other: Voiding Method Toilet # Voids 1 Weight 97.4 kg Gen: This is a 49-year-old HEENT: Head is atraumatic, normocephalic. Pupils equal, round. Sclerae is anicteric. NECK: Supple. No JVD. No lymphadenopathy. No thyromegaly. LUNGS: Clear to auscultation. No wheezes or rhonchi. No intercostal retractions. HEART: Regular rate and rhythm. No murmur. ABDOMEN: Soft. Bowel sounds are present. No masses. No tenderness. EXTREMITIES: No pedal edema. No calf tenderness. There is tenderness on the right lumbar area approximately L4 5. NEUROLOGICAL: Patient is awake, alert and oriented x3. Cranial nerves 2 through 12 are grossly intact. Results CBC & Chem 7: 12/13/19 15:44 12/13/19 15:44 Labs: Abnormal Lab Results - Last 24 Hours (Table) 12/13/19 12/13/19 12/14/19 Range/Units 15:44 15:44 04:07 WBC 12.8 H (3.8-10.6) k/uL RBC 3.74 L (4.30-5.90) m/uL Hgb 11.1 L (13.0-17.5) gm/dL Hct 34.9 L (39.0-53.0) % Neutrophils # 10.0 H (1.3-7.7) k/uL Chloride 108 H (98-107) mmol/L BUN 29 H (9-20) mg/dL HDL Cholesterol 32 L (40-60) mg/dL Thrombosis Risk Factor Assmnt - Choose All That Apply Any of the Below Risk Factors Present?: Yes Each Factor Represents 1 point: Acute ND, Age 41-60 years, Obesity (BMI >25) Other Risk Factors: No Other congenital or acquired thrombophilia - If yes, enter type in comment: No Thrombosis Risk Factor Assessment Total Risk Factor Score: 3 Thrombosis Risk Factor Assessment Level: Moderate Risk Assessment and Plan Plan: 1. Near syncopal episodes. Consult with cardiology appreciated. Echocardiogram ordered as well as tilt table test. 2. History of coronary artery disease with previous stenting done. Patient will follow-up with Dr. JOSIAS Fox as an outpatient. 3. Hypertension. 4. Hyperlipidemia. 5. Sciatica. Patient may benefit from use of Celebrex versus [place]. 6. GERD. Patient placed as an observation status Discharge plan: home Impression and plan of care have been directed as dictated by the signing physician. Zaida Joseph nurse practitioner acting as scribe for signing physician.
--- NOTE | 2019-12-14 15:05 | P.PCN ---
Preoperative Diagnosis: Indication: Presyncope Baseline 12-lead EKG shows sinus mechanism, normal HI, narrow QRS, Q wave in lead 3, normal QT intervals, no delta or epsilon waves Baseline blood pressure is 159/86 mmHg, heart rate is 72 bpm. Patient was tilted upright at a 70 angle as per protocol. blood pressure remained in the 120s over 80s and heart rate ottoniel slightly to the low 90s throughout the procedure. The patient did complain of feeling weak and tired and at that time his blood pressure was 125/88 and his heart rate was 97 bpm. At the end of the procedure the patient was laid supine. Impression Twelve-lead EKG showing isolated Q wave in lead 3 No evidence for neurocardiogenic syncope or dysautonomia
[2019-12-14 15:53] VITALS: BP 118/76; PULSE 66; TEMP 98.1
--- NOTE | 2019-12-14 16:00 | ECHOF ---
Referral Reason:syncope MEASUREMENTS -------- HEIGHT: 175.3 cm WEIGHT: 95.3 kg BP: IVSd: 1.3 cm (0.6 - 1.1) LVIDd: 4.8 cm (3.9 - 5.3) LVPWd: 1.3 cm (0.6 - 1.1) IVSs: 1.7 cm LVIDs: 3.2 cm LVPWs: 1.7 cm LA Diam: 4.1 cm (2.7 - 3.8) RVIDd: 3.3 cm (< 3.3) LAESV Index (A-L): 26.68 ml/m Ao Diam: 3.1 cm (2.0 - 3.7) AV Cusp: 2.3 cm (1.5 - 2.6) EPSS: 0.5 cm MV E Mateus: 0.81 m/s MV DecT: 223 ms MV A Mateus: 0.76 m/s MV E/A Ratio: 1.06 RAP: 5.00 mmHg RVSP: 17.01 mmHg MV EF SLOPE: 100.30 mm/s (70 - 150) MV EXCURSION: 21.17 mm (> 18.000) FINDINGS -------- Sinus rhythm. This was a technically good study. The left ventricular size is normal. Left ventricular wall thickness is normal. Overall left vent ricular systolic function is low-normal with, an EF between 50 - 55 %. Inferior Hypokinesis The right ventricle is normal in size. The left atrium is mildly dilated. Normal LA size by volume 22+/-6 ml/m2. The right atrial size is normal. The aortic valve is trileaflet, and appears structurally normal. No aortic stenosis or regurgitation. Mild mitral annular calcification present. Mild mitral regurgitation is present. Mild tricuspid regurgitation present. Right ventricular systolic pressure is normal at < 35 mmHg. There is no evidence of pulmonary hypertension. Trace/mild (physiologic) pulmonic regurgitation. The aortic root size is normal. There is no pericardial effusion. CONCLUSIONS -------- 1. Sinus rhythm. 2. This was a technically good study. 3. The left ventricular size is normal. 4. Left ventricular wall thickness is normal. 5. Overall left ventricular systolic function is low-normal with, an EF between 50 - 55 %. 6. Inferior Hypokinesis 7. The right ventricle is normal in size. 8. The left atrium is mildly dilated. 9. Normal LA size by volume 22+/-6 ml/m2. 10. The right atrial size is normal. 11. The aortic valve is trileaflet, and appears structurally normal. No aortic stenosis or regurgitat ion. 12. Mild mitral annular calcification present. 13. Mild mitral regurgitation is present. 14. Mild tricuspid regurgitation present. 15. Right ventricular systolic pressure is normal at < 35 mmHg. 16. There is no evidence of pulmonary hypertension. 17. Trace/mild (physiologic) pulmonic regurgitation. 18. The aortic root size is normal. 19. There is no pericardial effusion. [employer]MA[employer] MARKETING MANAGER: Jana Wood RDCS
== END 2019-12-14 16:49 | disposition home or self-care (01) ==
LOC: EC 15:30 → 1SOBS 19:41
PROVIDERS: ADMIT Family Medicine; ATTEND Family Medicine
DX: R55 Syncope and collapse (principal); D72.829 Elevated white blood cell count, unspecified; I10 Essential (primary) hypertension; I25.10 Atherosclerotic heart disease of native coronary artery without angina pectoris; E78.5 Hyperlipidemia, unspecified; I25.2 Old myocardial infarction; Z95.5 Presence of coronary angioplasty implant and graft; Z87.891 Personal history of nicotine dependence; K21.9 Gastro-esophageal reflux disease without esophagitis; M54.30 Sciatica, unspecified side; Z79.82 Long term (current) use of aspirin; Z79.899 Other long term (current) drug therapy; Z82.49 Family history of ischemic heart disease and other diseases of the circulatory system; Z82.3 Family history of stroke; Z83.3 Family history of diabetes mellitus; I08.1 Rheumatic disorders of both mitral and tricuspid valves
CPT/HCPCS: 93005 ×2; 96361 ×3; 96376; 96374; 99285; 36415; 93306; 93660; 85379; 80061; 80053; 83605; 84484 ×2; 85025; 85610; 81003; 71046; G0378 ×2; J1885 ×2

== ENCOUNTER 2019-12-15 17:55 | Inpatient (IN) | payer BC ==
[2019-12-15] MEDS ORDERED: SODIUM CHLORIDE 0.9% 1,000 ML IV STA ×2 (18:39)
[2019-12-15] MEDS ORDERED: SODIUM CHLORIDE 0.9% 500 ML 500 ML IV STA (18:39)
[2019-12-15] MEDS ORDERED: NITROGLYCERIN SL TABS 0.4 MG TAB SUBLINGUAL PRN (18:39)
--- NOTE | 2019-12-15 18:39 | ED ---
Dizziness HPI - General Chief Complaint: Dizziness Stated Complaint: dizziness Time Seen by Provider: 12/15/19 17:57 Source: patient, EMS, RN notes reviewed, old records reviewed Mode of arrival: EMS Limitations: no limitations - History of Present Illness Initial Comments: This is a 49-year-old male DF for evaluation patient presents with recurrent carmencita r syncope weakness elevated heart rate low blood pressure home symptoms appear to be significantly positional he does take metoprolol persistent heart is admitted significantly high. Otherwise no complaints has no headache no chest pain or shortness with abdominal pain recent nausea vomiting or diarrhea no recent illnesses no travel history no sick contacts. Patient has heavy symptoms for a few days now significantly worsened today patient was admitted 2 days ago with no improvement MD Complaint: dizziness, near syncope -: days(s) Timing: gradual onset, intermittent, waxing/waning Description: lightheadedness History of Same: Yes History of Trauma: No Severity: severe Improves With: remaining still Worsens With: movement, position Associated Symptoms: denies other symptoms - Related Data Home Medications Medication Instructions Recorded Confirmed Atorvastatin Calcium [Lipitor] 40 mg PO DAILY 02/18/14 12/15/19 Metoprolol Tartrate [Lopressor] 25 mg PO BID 02/18/14 12/15/19 Aspirin EC [Ecotrin Low Dose] 81 mg PO DAILY 12/13/19 12/15/19 Cyclobenzaprine [Flexeril] 5 mg PO TID PRN 12/13/19 12/15/19 HYDROcodone/APAP 7.5-325MG [[place] 1 tab PO BID PRN 12/13/19 12/15/19 7.5-325] Pregabalin [Lyrica] 25 mg PO BID 12/13/19 12/15/19 Ticagrelor [Brilinta] 90 mg PO BID 12/13/19 12/15/19 Previous Rx's Medication Instructions Recorded Nitroglycerin Sl Tabs [Nitrostat] 0.4 mg SUBLINGUAL Q5M PRN #25 tab 02/19/14 Allergies Allergy/AdvReac Type Severity Reaction Status Date / Time No Known Allergies Allergy Verified 12/15/19 19:21 Review of Systems ROS Statement: Those systems with pertinent positive or pertinent negative responses have been documented in the HPI. ROS Other: All systems not noted in ROS Statement are negative. Past Medical History Past Medical History: Chest Pain / Angina, Hyperlipidemia, Hypertension, Myocardial Infarction ([place]) Last Myocardial Infarction Date:: February 2013 History of Any Multi-Drug Resistant Organisms: None Reported Past Surgical History: Heart Catheterization With Stent Past Anesthesia/Blood Transfusion Reactions: No Reported Reaction Date of Last Stent Placement:: February 2013 Past Psychological History: No Psychological Hx Reported Smoking Status: Former smoker Past Alcohol Use History: Occasional Past Drug Use History: None Reported - Past Family History Father Family Medical History: Myocardial Infarction ([place]) Additional Family Medical History / Comment(s): Father at 70 from CVA. Mother Additional Family Medical History / Comment(s): Mother in her early 70s from combination is from diabetes. Sister(s) Additional Family Medical History / Comment(s): Patient has 3 sisters and one has history of coronary artery disease but no stents placed. He has 4 brothers. Patient has one son with no major medical problems. General Exam Limitations: no limitations General appearance: alert, in no apparent distress Head exam: Present: atraumatic, normocephalic, normal inspection Eye exam: Present: normal appearance, PERRL, EOMI. Absent: scleral icterus, conjunctival injection, periorbital swelling ENT exam: Present: normal exam, mucous membranes moist Neck exam: Present: normal inspection. Absent: tenderness, meningismus, lymphadenopathy Respiratory exam: Present: normal lung sounds bilaterally. Absent: respiratory distress, wheezes, rales, rhonchi, stridor Cardiovascular Exam: Present: regular rate, normal rhythm, normal heart sounds. Absent: systolic murmur, diastolic murmur, rubs, gallop, clicks GI/Abdominal exam: Present: soft, normal bowel sounds. Absent: distended, tenderness, guarding, rebound, rigid Extremities exam: Present: normal inspection, full ROM, normal capillary refill. Absent: tenderness, pedal edema, joint swelling, calf tenderness Back exam: Present: normal inspection Neurological exam: Present: alert, oriented X3, CN II-XII intact Psychiatric exam: Present: normal affect, normal mood Skin exam: Present: warm, dry, intact, normal color. Absent: rash Course Vital Signs 12/15/19 12/15/19 18:07 19:30 Temperature 98.3 F Pulse Rate 85 89 Respiratory 16 18 Rate Blood Pressure 156/100 116/74 O2 Sat by Pulse 100 99 Oximetry - Reevaluation(s) Reevaluation #1: 12/15/19 18:57 Medical record prior ER visit are reviewed Reevaluation #2: 12/15/19 18:57 Patient has no improvement in symptoms here in the ED Reevaluation #3: 12/15/19 19:48 Patient had a significant amount of bleeding tract distress a copy of hemoglobin, will admit for transfusion and evaluation regarding anemia - Consultations Consultation #1: Spoke Dr. Chase who is agreeable for admission spoke with Dr. Fernando for ICU who agrees with ICU placement EKG Findings - EKG Comments: EKG Findings:: EKG shows sinus rhythm of 86, [place] 160, QRS 84, QTc 416 Medical Decision Making - Medical Decision Making 49 male DF for evaluation patient having recurrent syncopal events or static very orthostatic. Patient understands up his heart rate go through the roof and he feels he is given a pass out no pain patient recently is hospital admission symptoms are worsening hemoglobin is worsening patient will be admitted for treatment - Lab Data Result diagrams: 12/15/19 15:00 12/15/19 15:00 Lab Results 12/15/19 12/15/19 12/15/19 Range/Units 15:00 15:00 15:00 WBC 9.4 (3.8-10.6) k/uL RBC 2.77 L (4.30-5.90) m/uL Hgb 8.1 L D (13.0-17.5) gm/dL Hct 25.5 L (39.0-53.0) % MCV 92.1 (80.0-100.0) fL MCH 29.5 (25.0-35.0) pg MCHC 32.0 (31.0-37.0) g/dL RDW 15.6 H (11.5-15.5) % Plt Count 231 (150-450) k/uL Neutrophils % 80 % Lymphocytes % 10 % Monocytes % 6 % Eosinophils % 1 % Basophils % 0 % Neutrophils # 7.5 (1.3-7.7) k/uL Lymphocytes # 1.0 (1.0-4.8) k/uL Monocytes # 0.6 (0-1.0) k/uL Eosinophils # 0.1 (0-0.7) k/uL Basophils # 0.0 (0-0.2) k/uL Sodium 137 (137-145) mmol/L Potassium 3.9 (3.5-5.1) mmol/L Chloride 108 H (98-107) mmol/L Carbon Dioxide 22 (22-30) mmol/L Anion Gap 7 mmol/L BUN 22 H (9-20) mg/dL Creatinine 0.58 L (0.66-1.25) mg/dL Est GFR (CKD-EPI)AfAm >90 (>60 ml/min/1.73 sqM) Est GFR (CKD-EPI)NonAf >90 (>60 ml/min/1.73 sqM) Glucose 104 H (74-99) mg/dL Plasma Lactic Acid [place] (0.7-2.0) mmol/L Calcium 8.4 (8.4-10.2) mg/dL Phosphorus 2.8 (2.5-4.5) mg/dL Magnesium 1.9 (1.6-2.3) mg/dL Total Bilirubin 0.3 (0.2-1.3) mg/dL AST 25 (17-59) U/L ALT 32 (4-49) U/L Alkaline Phosphatase 40 (38-126) U/L Creatine Kinase 63 (55-170) U/L CK-MB (CK-2) 1.4 (0.0-2.4) ng/mL Troponin I <0.012 (0.000-0.034) ng/mL NT-Pro-B Natriuret Pep pg/mL Total Protein 5.7 L (6.3-8.2) g/dL Albumin 3.3 L (3.5-5.0) g/dL 12/15/19 12/15/19 Range/Units 15:00 15:00 WBC (3.8-10.6) k/uL RBC (4.30-5.90) m/uL Hgb (13.0-17.5) gm/dL Hct (39.0-53.0) % MCV (80.0-100.0) fL MCH (25.0-35.0) pg MCHC (31.0-37.0) g/dL RDW (11.5-15.5) % Plt Count (150-450) k/uL Neutrophils % % Lymphocytes % % Monocytes % % Eosinophils % % Basophils % % Neutrophils # (1.3-7.7) k/uL Lymphocytes # (1.0-4.8) k/uL Monocytes # (0-1.0) k/uL Eosinophils # (0-0.7) k/uL Basophils # (0-0.2) k/uL Sodium (137-145) mmol/L Potassium (3.5-5.1) mmol/L Chloride (98-107) mmol/L Carbon Dioxide (22-30) mmol/L Anion Gap mmol/L BUN (9-20) mg/dL Creatinine (0.66-1.25) mg/dL Est GFR (CKD-EPI)AfAm (>60 ml/min/1.73 sqM) Est GFR (CKD-EPI)NonAf (>60 ml/min/1.73 sqM) Glucose (74-99) mg/dL Plasma Lactic Acid [place] 2.0 (0.7-2.0) mmol/L Calcium (8.4-10.2) mg/dL Phosphorus (2.5-4.5) mg/dL Magnesium (1.6-2.3) mg/dL Total Bilirubin (0.2-1.3) mg/dL AST (17-59) U/L ALT (4-49) U/L Alkaline Phosphatase (38-126) U/L Creatine Kinase (55-170) U/L CK-MB (CK-2) (0.0-2.4) ng/mL Troponin I (0.000-0.034) ng/mL NT-Pro-B Natriuret Pep 29 pg/mL Total Protein (6.3-8.2) g/dL Albumin (3.5-5.0) g/dL Critical Care Time Critical Care Time: Yes Total Critical Care Time: 31 Disposition Clinical Impression: Orthostatic hypotension, Syncope, Anemia, GIB (gastrointestinal bleeding) Disposition: ADMITTED IP TO THIS HOSP Condition: Good Is patient prescribed a controlled substance at d/c from ED?: No Referrals: Ashlee Solo MD [Primary Care Provider] - 1-2 days
[2019-12-15] MEDS: SODIUM CHLORIDE 0.9% 1,000 ML IV SCH (19:13)
[2019-12-15 19:14] LABS: Basophils % (A) 0 %; Eosinophils # (A) 0.1 k/uL (0-0.7); Eosinophils % (A) 1 %; HCT 25.5 % (39.0-53.0); Lymphocytes % (A) 10 %; MCH 29.5 pg (25.0-35.0); MCV 92.1 fL (80.0-100.0); Mean Platelet Volume 8.3; Monocytes # (A) 0.6 k/uL (0-1.0); Monocytes % (A) 6 %; Neutrophils # (A) 7.5 k/uL (1.3-7.7); Neutrophils % (A) 80 %; Platelet Count 231 k/uL (150-450); RBC 2.77 m/uL (4.30-5.90); RDW 15.6 % (11.5-15.5); WBC 9.4 k/uL (3.8-10.6)
[2019-12-15 19:15] LABS: HGB 8.1 gm/dL (13.0-17.5)
[2019-12-15] MEDS ORDERED: MORPHINE SULFATE 4 MG/ML SYRINGE IVP STA (19:15)
[2019-12-15 19:20] LABS: ALT 32 U/L (4-49); AST 25 U/L (17-59); African American GFR (CKD) >90 (>60 ml/min/1.73 sqM); Albumin 3.3 g/dL (3.5-5.0); Alkaline Phosphatase 40 U/L (38-126); Anion Gap 7 mmol/L; Blood Urea Nitrogen 22 mg/dL (9-20); Calcium 8.4 mg/dL (8.4-10.2); Carbon Dioxide 22 mmol/L (22-30); Chloride 108 mmol/L (98-107); Creatine Kinase 63 U/L (55-170); Glucose 104 mg/dL (74-99); Magnesium 1.9 mg/dL (1.6-2.3); Non-African American GFR(CKD) >90 (>60 ml/min/1.73 sqM); Phosphorus 2.8 mg/dL (2.5-4.5); Potassium 3.9 mmol/L (3.5-5.1); Sodium 137 mmol/L (137-145); Total Bilirubin 0.3 mg/dL (0.2-1.3); Total Protein 5.7 g/dL (6.3-8.2)
[2019-12-15] MEDS ORDERED: PANTOPRAZOLE 40 MG/10 ML VIAL IVP STA (19:30)
[2019-12-15 19:46] LABS: Creatine Kinase MB 1.4 ng/mL (0.0-2.4); Troponin I <0.012 ng/mL (0.000-0.034)
[2019-12-15 20:11] LABS: Appearance,Urine Clear (Clear); Bilirubin,Urine Negative (Negative); Blood,Urine Negative (Negative); Color,Urine Light Yellow; Glucose,Urine (UA) Negative (Negative); Ketones,Urine Negative (Negative); Leukocyte Esterase,Urine Negative (Negative); Nitrite,Urine Negative (Negative); Protein,Urine Negative (Negative); Specific Gravity,Urine 1.012 (1.001-1.035); Urobilinogen,Urine <2.0 mg/dL (<2.0)
[2019-12-15 20:13] LABS: D-Dimer 0.24 mg/L FEU (<0.60); Prothrombin Time 10.6 sec (9.0-12.0)
[2019-12-15 20:15] LABS: Partial Thromboplastin Time 19.7 sec (22.0-30.0)
[2019-12-15 20:41] LABS: Glucose,Whole Blood 109 mg/dL (75-99)
[2019-12-15] MEDS ORDERED: NALOXONE 0.4 MG/ML 1 ML VIAL IV PRN (22:55)
[2019-12-16] MEDS: HYDROcodone/APAP 7.5-325MG 1 EACH TAB PO PRN ×3 (01:20→16:52)
[2019-12-16] MEDS: METOPROLOL TARTRATE 50 MG TAB PO SCH ×3 (01:20→21:51)
[2019-12-16] MEDS: PREGABALIN 25 MG CAP PO SCH ×3 (01:21→22:04)
[2019-12-16] MEDS ORDERED: NITROGLYCERIN SL TABS 0.4 MG TAB SUBLINGUAL PRN (05:54)
[2019-12-16] MEDS ORDERED: HYDROcodone/APAP 7.5-325MG 1 EACH TAB PO PRN (05:54)
[2019-12-16] MEDS ORDERED: CYCLOBENZAPRINE 10 MG TAB PO PRN (05:58)
[2019-12-16 05:59] LABS: Basophils % (A) 0 %; Eosinophils # (A) 0.1 k/uL (0-0.7); Eosinophils % (A) 2 %; HCT 28.9 % (39.0-53.0); HGB 9.2 gm/dL (13.0-17.5); Lymphocytes # (A) 1.2 k/uL (1.0-4.8); Lymphocytes % (A) 15 %; MCH 30.4 pg (25.0-35.0); Mean Platelet Volume 7.8; Monocytes # (A) 0.6 k/uL (0-1.0); Monocytes % (A) 7 %; Neutrophils # (A) 6.1 k/uL (1.3-7.7); Neutrophils % (A) 74 %; Platelet Count 178 k/uL (150-450); RBC 3.04 m/uL (4.30-5.90); RDW 14.8 % (11.5-15.5); WBC 8.2 k/uL (3.8-10.6)
[2019-12-16 06:38] LABS: ALT 28 U/L (4-49); AST 20 U/L (17-59); African American GFR (CKD) >90 (>60 ml/min/1.73 sqM); Albumin 2.8 g/dL (3.5-5.0); Alkaline Phosphatase 35 U/L (38-126); Anion Gap 5 mmol/L; Blood Urea Nitrogen 21 mg/dL (9-20); Calcium 7.9 mg/dL (8.4-10.2); Carbon Dioxide 22 mmol/L (22-30); Chloride 109 mmol/L (98-107); Cholesterol 91 mg/dL (<200); Glucose 108 mg/dL (74-99); HDL Cholesterol 24 mg/dL (40-60); LDL Cholesterol,Calculated 46 mg/dL (0-99); Magnesium 1.8 mg/dL (1.6-2.3); Non-African American GFR(CKD) >90 (>60 ml/min/1.73 sqM); Potassium 4.2 mmol/L (3.5-5.1); Sodium 136 mmol/L (137-145); Total Bilirubin 0.5 mg/dL (0.2-1.3); Total Protein 5.1 g/dL (6.3-8.2); Triglycerides 103 mg/dL (<150)
[2019-12-16 07:40] LABS: INR 1.1 (<1.2); Prothrombin Time 11.2 sec (9.0-12.0)
--- NOTE | 2019-12-16 07:53 | P.CRDCN ---
History of Present Illness Consult date: 12/16/19 Chief complaint: Recurrent syncope History of present illness: This is a very pleasant 49-year-old gentleman who sees Dr. Fox in the office as an outpatient with history of coronary artery disease, hypertension, and dyslipidemia, presented to the hospital again with syncope. He just was discharged from the hospital 2 days ago after he presented with syncope. At that point the patient workup came in to be unremarkable. His EKG showed sinus rhythm. The echo showed normal left ventricular systolic function. He underwent tilt table test which came in to be negative for neurocardiogenic syncope or dysautonomia. This time the patient was at home when he was trying to stand and he felt warm/flush feeling associated with dizziness and lightheadedness and he was about to lose his consciousness. Also he felt the heart was racing. He was also short of breath. He wasn't sweaty as well. No symptoms of chest pain or chest discomfort. Because of that he decided to come to the emergency room. In the ER when he presented he was tachycardic and also he was found to be anemic and received one unit of packed RBC. His hemoglobin this morning is above 9. The patient stated that for the last several days he has been experiencing blood in the stool. Currently GI is on the case for the patient. The rest of his workup beside the anemia came in to be unremarkable this admission. The EKG showed sinus rhythm without any significant ST or T- wave abnormalities. The cardiac enzymes were checked and came in to be unremarkable as well. For some reason the patient still taking Brilinta and the last coronary stenting was in 2018. I'm going to DC that. GI is in process of seeing the patient. Past Medical History Past Medical History: Chest Pain / Angina, Hyperlipidemia, Hypertension, Myoc ardial Infarction ([place]) Last Myocardial Infarction Date:: February 2013 History of Any Multi-Drug Resistant Organisms: None Reported Past Surgical History: Heart Catheterization With Stent Past Anesthesia/Blood Transfusion Reactions: No Reported Reaction Date of Last Stent Placement:: February 2013 Past Psychological History: No Psychological Hx Reported Smoking Status: Former smoker Past Alcohol Use History: Occasional Additional Past Alcohol Use History / Comment(s): Patient was a smoker and quit 20 years ago. Patient denies having any marijuana use, street drug use. He drinks alcohol occasionally with 1-2 beers. Patient works in a factory. Past Drug Use History: None Reported - Past Family History Father Family Medical History: Myocardial Infarction ([place]) Additional Family Medical History / Comment(s): Father at 70 from CVA. Mother Additional Family Medical History / Comment(s): Mother in her early 70s due to complications from diabetes. Sister(s) Additional Family Medical History / Comment(s): Patient has 3 sisters and one has history of coronary artery disease but no stents placed. He has 4 brothers. Patient has one son with no major medical problems. Medications and Allergies Home Medications Medication Instructions Recorded Confirmed Type Atorvastatin Calcium [Lipitor] 40 mg PO DAILY 02/18/14 12/15/19 History Metoprolol Tartrate [Lopressor] 25 mg PO BID 02/18/14 12/15/19 History Nitroglycerin Sl Tabs [Nitrostat] 0.4 mg SUBLINGUAL Q5M PRN #25 tab 02/19/14 12/15/19 Rx Aspirin EC [Ecotrin Low Dose] 81 mg PO DAILY 12/13/19 12/15/19 History Cyclobenzaprine [Flexeril] 5 mg PO TID PRN 12/13/19 12/15/19 History HYDROcodone/APAP 7.5-325MG [[place] 1 tab PO BID PRN 12/13/19 12/15/19 History 7.5-325] Pregabalin [Lyrica] 25 mg PO BID 12/13/19 12/15/19 History Ticagrelor [Brilinta] 90 mg PO BID 12/13/19 12/15/19 History Allergies Allergy/AdvReac Type Severity Reaction Status Date / Time No Known Allergies Allergy Verified 12/15/19 19:21 Physical Exam Vitals: Vital Signs Temp Pulse Resp BP Pulse Ox 12/16/19 07:00 67 18 113/81 95 12/16/19 06:00 63 14 113/81 94 L 12/16/19 05:00 65 12 131/77 94 L 12/16/19 04:48 98.4 F 65 12 113/64 95 12/16/19 04:00 98.4 F 81 21 129/76 96 12/16/19 03:00 78 14 154/101 95 12/16/19 02:59 18 12/16/19 02:00 80 18 130/81 97 12/16/19 01:50 98.2 F 81 13 146/87 97 12/16/19 01:40 98.2 F 88 18 130/81 98 12/16/19 01:37 98.2 F 85 18 140/85 97 12/16/19 01:00 83 16 130/86 98 12/16/19 00:00 95 16 115/78 98 12/15/19 23:07 98.4 F 91 17 127/83 12/15/19 23:00 89 13 115/104 96 12/15/19 22:37 98.4 F 86 18 118/104 12/15/19 22:27 98.4 F 88 18 119/81 12/15/19 22:00 90 37 H 125/83 96 12/15/19 21:00 91 19 134/97 97 12/15/19 20:30 93 18 132/86 99 12/15/19 20:29 88 18 132/86 98 12/15/19 19:30 89 18 116/74 99 12/15/19 18:07 98.3 F 85 16 156/100 100 Intake and Output 12/15/19 12/16/19 12/16/19 22:59 06:59 14:59 Intake Total 200 1840 Output Total 300 700 0 Balance -100 1140 0 Intake: IV 200 600 Sodium Chloride 0.9% 1, 200 600 000 ml @ 100 mls/hr IV . Q10H [facility] Rx#:[id number] Blood Product 0 1240 Rc As-1 Unit 0 310 [id number] Rc As-1 Unit 310 [id number] Output: Urine 300 700 0 Other: Weight 95.254 kg - Constitutional General appearance: no acute distress - Respiratory Respiratory: bilateral: CTA - Cardiovascular Rhythm: regular Heart sounds: normal: S1, S2 Results 12/16/19 05:40 12/16/19 05:40 Cardiac Enzymes 12/15/19 12/15/19 12/15/19 Range/Units 15:00 15:00 21:25 AST 25 (17-59) U/L CK-MB (CK-2) 1.4 (0.0-2.4) ng/mL Troponin I <0.012 <0.012 (0.000-0.034) ng/mL 12/16/19 Range/Units 05:40 AST 20 (17-59) U/L CK-MB (CK-2) (0.0-2.4) ng/mL Troponin I (0.000-0.034) ng/mL Coagulation 12/15/19 12/16/19 Range/Units 15:00 06:20 PT 10.6 11.2 (9.0-12.0) sec APTT 19.7 L (22.0-30.0) sec Lipids 12/16/19 Range/Units 05:40 Triglycerides 103 (<150) mg/dL Cholesterol 91 (<200) mg/dL HDL Cholesterol 24 L (40-60) mg/dL CBC 12/15/19 12/16/19 Range/Units 15:00 05:40 WBC 9.4 8.2 (3.8-10.6) k/uL RBC 2.77 L 3.04 L (4.30-5.90) m/uL Hgb 8.1 L D 9.2 L (13.0-17.5) gm/dL Hct 25.5 L 28.9 L (39.0-53.0) % Plt Count 231 178 (150-450) k/uL Comprehensive Metabolic Panel 12/15/19 12/16/19 Range/Units 15:00 05:40 Sodium 137 136 L (137-145) mmol/L Potassium 3.9 4.2 (3.5-5.1) mmol/L Chloride 108 H 109 H (98-107) mmol/L Carbon Dioxide 22 22 (22-30) mmol/L BUN 22 H 21 H (9-20) mg/dL Creatinine 0.58 L 0.79 (0.66-1.25) mg/dL Glucose 104 H 108 H (74-99) mg/dL Calcium 8.4 7.9 L (8.4-10.2) mg/dL AST 25 20 (17-59) U/L ALT 32 28 (4-49) U/L Alkaline Phosphatase 40 35 L (38-126) U/L Total Protein 5.7 L 5.1 L (6.3-8.2) g/dL Albumin 3.3 L 2.8 L (3.5-5.0) g/dL Current Medications Generic Name Dose Route Start Last Admin Trade Name Freq PRN Reason Stop Dose Admin Hydrocodone Bitart/Acetaminophen 1 each 12/16/19 01:09 12/16/19 01:20 [place] 7.5-325 PO 1 each Q8H PRN Administration Pain Atorvastatin Calcium 40 mg 12/16/19 09:00 Lipitor PO DAILY KATHERIN Cyclobenzaprine HCl 5 mg 12/16/19 05:58 Flexeril PO TID PRN Muscle Pain Sodium Chloride 1,000 mls @ 100 mls/hr 12/15/19 18:45 12/15/19 19:13 Saline 0.9% IV Not Given .Q10H KATHERIN Metoprolol Tartrate 50 mg 12/15/19 21:00 12/16/19 01:20 Lopressor PO 50 mg BID KATHERIN Administration Naloxone HCl 0.2 mg 12/15/19 22:55 Narcan IV Q2M PRN Opioid Reversal Nitroglycerin 0.4 mg 12/15/19 18:39 Nitrostat SUBLINGUAL Q5M PRN Chest Pain Nitroglycerin 0.4 mg 12/16/19 05:54 Nitrostat SUBLINGUAL Q5M PRN Chest Pain Pantoprazole Sodium 40 mg 12/16/19 09:00 Protonix IVP DAILY KATHERIN Pregabalin 25 mg 12/16/19 01:15 12/16/19 01:21 Lyrica PO 25 mg BID KATHERIN Administration Intake and Output 12/15/19 12/16/19 12/16/19 22:59 06:59 14:59 Intake Total 200 1840 Output Total 300 700 0 Balance -100 1140 0 Intake: IV 200 600 Sodium Chloride 0.9% 1, 200 600 000 ml @ 100 mls/hr IV . Q10H K[facility]IN Rx#:[id number] Blood Product 0 1240 Rc As-1 Unit 0 310 [id number] Rc As-1 Unit 310 [id number] Output: Urine 300 700 0 Other: Weight 95.254 kg 12/16/19 05:40 12/16/19 05:40 Assessment and Plan Assessment: Assessment #1 upper GI bleeding #2 anemia secondary to the above #3 presyncope secondary to anemia #4 coronary artery disease #5 multiple comorbid conditions Plan #1 DC the antiplatelet with Brilinta #2 he is in process of getting anemia workup #3 continue the current medical regimen #4 continue monitoring the hemoglobin #5 follow-up with the patient
[2019-12-16] MEDS: ATORVASTATIN 40 MG TAB PO SCH (08:08)
[2019-12-16] MEDS: SODIUM CHLORIDE 0.9% 1,000 ML IV SCH ×2 (08:10→15:03)
[2019-12-16] MEDS ORDERED: ASPIRIN 325 MG TAB PO SCH (09:00)
[2019-12-16] MEDS ORDERED: PREGABALIN 25 MG CAP PO SCH (09:00)
[2019-12-16] MEDS ORDERED: PANTOPRAZOLE 40 MG/10 ML VIAL IVP SCH (09:00)
[2019-12-16] MEDS ORDERED: METOPROLOL TARTRATE 25 MG TAB PO SCH (09:00)
--- NOTE | 2019-12-16 12:32 | P.CNPUL ---
History of Present Illness Consult date: 12/16/19 Requesting physician: Alan Curry Reason for consult: other (Anemia, recurrent syncope, orthostatic hypotension, ICU management) Chief complaint: Recurrent syncope History of present illness: This is a 49-year-old white male with history of multiple medical problems including coronary artery disease, previous stent placement, maintained on brilinta for the last 2 years. 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 Patient was recently in the hospital for syncope, and his workup during his last admission was basically nondiagnostic. EKG was normal echocardiogram was normal tilt test was normal and there was no evidence of neurocardiogenic syncope or dysautonomia. This time, the patient had an episode of sudden feeling of warm and flushed sensation associated with dizziness and lightheadedness and he was about to pass out. But there was no loss of consciousness. He felt his heart was racing. And he was also complaining of shortness of breath. He had no chest pain and no chest discomfort. In the ER, the patient was noted to be anemic, and tachycardic. His hemoglobin was 14.0 on 12/06/19, and it was 11.1 on 12/13/19, upon his evaluation in the ER, his hemoglobin was down to 8.1. Patient has been noticing black stools for the last few days. Hence the patient was admitted to the ICU because of significant drop in his hemoglobin, and presumed GI blood loss. Patient was seen by cardiology, and his Brilinta was discontinued. Patient states that he is not taking any anti-inflammatory medicines but has been receiving cortisone injections and muscle relaxants for symptoms of right sided sciatica pain and discomfort in the right thigh. Pain is in the right buttock area, and radiates all the way down to his distal right lower extremity posteriorly. This is being handled by his primary care physician Dr. Solo, and a referral was initiated on outpatient basis to [facility]. Since admission to the ICU, patient received 2 units of packed RBCs, and his repeat hemoglobin is 9.2 after 2 units given. Patient is feeling better while in the ICU specially after the 2 units of blood given. Denies any shortness of breath, denies any chest pain, denies any cough no wheezing. Patient denies any hematemesis, denies any bright red blood per rectum but has been noticing black stools for few days. Denies any abdominal pain. Review of Systems Constitutional: Generalized weakness fatigue and lightheadedness. No fever no chills. HEENT: Negative.. Pulmonary: Denies cough wheezing shortness of breath or chest pain. Cardiac: As noted in HPI. GI: Denies any nausea vomiting abdominal pain, but has been complaining of black stools for the last few days. Genitourinary: Denies any dysuria hematuria frequency urgency. Skin negative denies any rashes. Hematologic: No clotting bleeding or bruising Neurologic: Denies headache however had recurrent syncope and near syncope episodes. Refer to HPI. Endocrine: Denies any heat or cold intolerance. Musculoskeletal: Right sided buttock pain, being evaluated by his primary care physician, diagnosed as having sciatica Psychiatric: Denies any symptoms of active depression. Past Medical History Past Medical History: Chest Pain / Angina, Hyperlipidemia, Hypertension, Myocardial Infarction ([place]) Last Myocardial Infarction Date:: February 2013 History of Any Multi-Drug Resistant Organisms: None Reported Past Surgical History: Heart Catheterization With Stent Past Anesthesia/Blood Transfusion Reactions: No Reported Reaction Date of Last Stent Placement:: February 2013 Past Psychological History: No Psychological Hx Reported Smoking Status: Former smoker Past Alcohol Use History: Occasional Additional Past Alcohol Use History / Comment(s): Patient was a smoker and quit 20 years ago. Patient denies having any marijuana use, street drug use. He drinks alcohol occasionally with 1-2 beers. Patient works in a factory. Past Drug Use History: None Reported - Past Family History Father Family Medical History: Myocardial Infarction ([place]) Additional Family Medical History / Comment(s): Father at 70 from CVA. Mother Additional Family Medical History / Comment(s): Mother in her early 70s due to complications from diabetes. Sister(s) Additional Family Medical History / Comment(s): Patient has 3 sisters and one has history of coronary artery disease but no stents placed. He has 4 brothers. Patient has one son with no major medical problems. Medications and Allergies Home Medications Medication Instructions Recorded Confirmed Type Atorvastatin Calcium [Lipitor] 40 mg PO DAILY 02/18/14 12/15/19 History Metoprolol Tartrate [Lopressor] 25 mg PO BID 02/18/14 12/15/19 History Nitroglycerin Sl Tabs [Nitrostat] 0.4 mg SUBLINGUAL Q5M PRN #25 tab 02/19/14 12/15/19 Rx Aspirin EC [Ecotrin Low Dose] 81 mg PO DAILY 12/13/19 12/15/19 History Cyclobenzaprine [Flexeril] 5 mg PO TID PRN 12/13/19 12/15/19 History HYDROcodone/APAP 7.5-325MG [[place] 1 tab PO BID PRN 12/13/19 12/15/19 History 7.5-325] Pregabalin [Lyrica] 25 mg PO BID 12/13/19 12/15/19 History Ticagrelor [Brilinta] 90 mg PO BID 12/13/19 12/15/19 History Allergies Allergy/AdvReac Type Severity Reaction Status Date / Time No Known Allergies Allergy Verified 12/15/19 19:21 Physical Exam Vitals: Vital Signs Temp Pulse Resp BP Pulse Ox 12/16/19 11:00 63 14 122/69 96 12/16/19 10:00 76 20 132/83 96 12/16/19 09:00 72 20 131/76 97 12/16/19 08:00 98.1 F 75 20 131/80 95 12/16/19 07:00 67 18 113/81 95 12/16/19 06:00 63 14 113/81 94 L 12/16/19 05:00 65 12 131/77 94 L 12/16/19 04:48 98.4 F 65 12 113/64 95 12/16/19 04:00 98.4 F 81 21 129/76 96 12/16/19 03:00 78 14 154/101 95 12/16/19 02:59 18 12/16/19 02:00 80 18 130/81 97 12/16/19 01:50 98.2 F 81 13 146/87 97 12/16/19 01:40 98.2 F 88 18 130/81 98 12/16/19 01:37 98.2 F 85 18 140/85 97 12/16/19 01:00 83 16 130/86 98 12/16/19 00:00 95 16 115/78 98 12/15/19 23:07 98.4 F 91 17 127/83 12/15/19 23:00 89 13 115/104 96 12/15/19 22:37 98.4 F 86 18 118/104 12/15/19 22:27 98.4 F 88 18 119/81 12/15/19 22:00 90 37 H 125/83 96 12/15/19 21:00 91 19 134/97 97 12/15/19 20:30 93 18 132/86 99 12/15/19 20:29 88 18 132/86 98 12/15/19 19:30 89 18 116/74 99 12/15/19 18:07 98.3 F 85 16 156/100 100 Intake and Output 12/15/19 12/16/19 12/16/19 22:59 06:59 14:59 Intake Total 200 1840 400 Output Total 300 700 500 Balance -100 1140 -100 Intake: IV 200 600 Sodium Chloride 0.9% 1, 200 600 000 ml @ 100 mls/hr IV . Q10H KATHERIN Rx#:[id number] Intake, IV Titration 400 Amount Sodium Chloride 0.9% 1, 400 000 ml @ 100 mls/hr IV . Q10H KATHERIN Rx#:[id number] Blood Product 0 1240 Rc As-1 Unit 0 310 [id number] Rc As-1 Unit 310 [id number] Output: Urine 300 700 500 Other: Weight 95.254 kg Physical Exam: Revealed 49-year-old, very pleasant, in no distress. Head: Atraumatic, normocephalic. HEENT:[Neck is supple.] [No neck masses.] [No thyromegaly.] [No JVD.] PERRLA, EOMI, no icterus, moist mucous membranes Chest: [Clear throughout, no crackles, no rhonchi, no wheezes.] Cardiac Exam: [Normal S1 and S2, no S3 gallop, no murmur.] Abdomen: [Soft, nontender, no megaly, no rebound, no guarding, normal bowel sounds.] Extremities: [No clubbing, no edema, no cyanosis.] Neurological Exam: [No focal neurologic deficit.] Alert oriented 3. Psychiatric: Normal mood, affect and normal mental status examination. Skin: No rashes. Musculoskeletal: No deformities, no limitation in range of motion. Minimal tenderness in the right buttock area. Results - Laboratory Findings CBC and BMP: 12/16/19 05:40 12/16/19 05:40 PT/INR, D-dimer PT 11.2 sec (9.0-12.0) 12/16/19 06:20 INR 1.1 (<1.2) 12/16/19 06:20 D-Dimer 0.24 mg/L FEU (<0.60) 12/15/19 15:00 Abnormal lab findings: Abnormal Labs 12/15/19 12/15/19 12/15/19 15:00 15:00 15:00 RBC 2.77 L Hgb 8.1 L D Hct 25.5 L RDW 15.6 H APTT 19.7 L Sodium Chloride 108 H BUN 22 H Creatinine 0.58 L Glucose 104 H POC Glucose (mg/dL) Calcium Alkaline Phosphatase Total Protein 5.7 L Albumin 3.3 L HDL Cholesterol Crossmatch 12/15/19 12/15/19 12/16/19 19:55 20:40 05:40 RBC Hgb Hct RDW APTT Sodium 136 L Chloride 109 H BUN 21 H Creatinine Glucose 108 H POC Glucose (mg/dL) 109 H Calcium 7.9 L Alkaline Phosphatase 35 L Total Protein 5.1 L Albumin 2.8 L HDL Cholesterol 24 L Crossmatch See Detail 12/16/19 05:40 RBC 3.04 L Hgb 9.2 L Hct 28.9 L RDW APTT Sodium Chloride BUN Creatinine Glucose POC Glucose (mg/dL) Calcium Alkaline Phosphatase Total Protein Albumin HDL Cholesterol Crossmatch Assessment and Plan Assessment: Impression: Near syncope secondary to GI blood loss. And worsening anemia. Strongly suspect upper GI bleeding. Exacerbated by taking Brilinta. History of underlying coronary artery disease, previous stents placed. Right sided sciatica, being addressed on an outpatient basis. History of benign essential hypertension. History of dyslipidemia. History of previous HI. Recommendation: Agree with stopping the Brilinta. Continue Protonix. Transfuse to keep hemoglobin above 7. GI to evaluate the patient and consider EGD on this patient. We'll continue to follow. Time with Patient: Greater than 30
--- NOTE | 2019-12-16 13:08 | P.HPIM ---
History of Present Illness H&P Date: 12/16/19 Chief Complaint: Dizziness, lightheadedness, presyncope This is a 49-year-old male patient of Dr. Solo and Dr. JOSIAS Fox with past medical history of hypertension, hyperlipidemia, [place] in 2013 status post PCI and stenting followed by stent placement in the RCA and LAD in 2018, severe GERD. Patient was recently in the emergency center/observation unit for complaints of syncopal episodes. Tilt table test was done that revealed a 12-lead EKG showing isolated Q wave in lead 2. No evidence of neurocardiogenic syncope or dysautonomia. Echocardiogram at that time revealed EF of 50-55%, mild mitral regurgitation, mild tricuspid regurgitation. Patient has been cleared for discharge by cardiology. No medication changes were made. While patient was in the hospital, he was complaining of significant sciatica pain on the right side for which she did receive a dose of Mobic. The patient states he did fine at home until last evening he had another near syncopal episode along with dizziness and lightheadedness. He states that when he went from a sitting to a standing position his heart rate was racing and he has some shortness of breath. He denies having any chest pain. He apparently has had black stools for a few days. Patient came into [facility] emergency center for evaluation. He was afebrile, blood pressure 156/100, heart rate 85, pulse ox 100%. EKG was a sinus rhythm with no acute ST-T wave changes. WBC 9.4, hemoglobin 8.1 down from 11.1 on previous hospitalization, platelet count 231. Sodium 137, potassium 3.9, chloride 108, CO2 22, BUN 22 creatinine 0.58, blood sugar 104. Lactic acid 2.0, proBNP 29, d-dimer 0.24. Liver function tests were normal, troponin 0.012 on 2 draws. Triglycerides 103, cholesterol 91, LDL 46, HDL 24. TSH 1.140. Urinalysis negative. Patient was transfused 2 units of packed RBCs in the emergency center. Patient was admitted to the intensive care unit initially and consults in place with GI with plan for EGD and colonoscopy tomorrow. Dr. Fernandes also on consult for intensive care management. Patient has been cleared for transfer out of the intensive care unit. Review of Systems Constitutional: Denies anorexia, Denies chills, Denies fatigue, Denies fever, Denies lethargy, Denies malaise, Denies poor appetite, Denies weakness Ears, nose, mouth and throat: Denies dysphagia, Denies epistaxis, Denies nasal congestion, Denies nasal discharge, reports vertigo, reports lightheadedness, reports near syncopal episode Cardiovascular: Reports syncope, Denies chest pain, Denies dyspnea on exertion, Denies edema, Denies irregular heart beat, Denies leg edema, reports lightheadedness, Denies palpitations, reports shortness of breath, reports rapid heartbeat Respiratory: Denies cough, Denies cough with sputum, Denies dyspnea, Denies excessive sputum, Denies hemoptysis, Denies home oxygen, Denies respiratory infections, Denies wheezing Gastrointestinal: Denies abdominal pain, Denies diarrhea, Denies loss of appetite, Denies nausea, Denies vomiting, reports black stools Genitourinary: Denies dysuria, Denies urinary retention Musculoskeletal: Reports low back pain, Denies myalgias Integumentary: Denies pruritus, Denies rash, Denies wounds Neurological: Denies change in mentation, Denies change in speech, Denies numbness, Denies weakness Psychiatric: Denies anxiety, Denies depression Endocrine: Denies fatigue, Denies weight change Past Medical History Past Medical History: Chest Pain / Angina, Hyperlipidemia, Hypertension, Myocardial Infarction ([place]) Last Myocardial Infarction Date:: February 2013 History of Any Multi-Drug Resistant Organisms: None Reported Past Surgical History: Heart Catheterization With Stent Past Anesthesia/Blood Transfusion Reactions: No Reported Reaction Date of Last Stent Placement:: February 2013 Past Psychological History: No Psychological Hx Reported Smoking Status: Former smoker Past Alcohol Use History: Occasional Additional Past Alcohol Use History / Comment(s): Patient was a smoker and quit 20 years ago. Patient denies having any marijuana use, street drug use. He drinks alcohol occasionally with 1-2 beers. Patient works in a factory. Past Drug Use History: None Reported - Past Family History Father Family Medical History: Myocardial Infarction ([place]) Additional Family Medical History / Comment(s): Father at 70 from CVA. Mother Additional Family Medical History / Comment(s): Mother in her early 70s due to complications from diabetes. Sister(s) Additional Family Medical History / Comment(s): Patient has 3 sisters and one has history of coronary artery disease but no stents placed. He has 4 brothers. Patient has one son with no major medical problems. Medications and Allergies Home Medications Medication Instructions Recorded Confirmed Type Atorvastatin Calcium [Lipitor] 40 mg PO DAILY 02/18/14 12/15/19 History Metoprolol Tartrate [Lopressor] 25 mg PO BID 02/18/14 12/15/19 History Nitroglycerin Sl Tabs [Nitrostat] 0.4 mg SUBLINGUAL Q5M PRN #25 tab 02/19/14 12/15/19 Rx Aspirin EC [Ecotrin Low Dose] 81 mg PO DAILY 12/13/19 12/15/19 History Cyclobenzaprine [Flexeril] 5 mg PO TID PRN 12/13/19 12/15/19 History HYDROcodone/APAP 7.5-325MG [[place] 1 tab PO BID PRN 12/13/19 12/15/19 History 7.5-325] Pregabalin [Lyrica] 25 mg PO BID 12/13/19 12/15/19 History Ticagrelor [Brilinta] 90 mg PO BID 12/13/19 12/15/19 History Allergies Allergy/AdvReac Type Severity Reaction Status Date / Time No Known Allergies Allergy Verified 12/15/19 19:21 Physical Exam Vitals: Vital Signs Temp Pulse Resp BP Pulse Ox 12/16/19 11:00 63 14 122/69 96 12/16/19 10:00 76 20 132/83 96 12/16/19 09:00 72 20 131/76 97 12/16/19 08:00 98.1 F 75 20 131/80 95 12/16/19 07:00 67 18 113/81 95 12/16/19 06:00 63 14 113/81 94 L 12/16/19 05:00 65 12 131/77 94 L 12/16/19 04:48 98.4 F 65 12 113/64 95 12/16/19 04:00 98.4 F 81 21 129/76 96 12/16/19 03:00 78 14 154/101 95 12/16/19 02:59 18 12/16/19 02:00 80 18 130/81 97 12/16/19 01:50 98.2 F 81 13 146/87 97 12/16/19 01:40 98.2 F 88 18 130/81 98 12/16/19 01:37 98.2 F 85 18 140/85 97 12/16/19 01:00 83 16 130/86 98 12/16/19 00:00 95 16 115/78 98 12/15/19 23:07 98.4 F 91 17 127/83 12/15/19 23:00 89 13 115/104 96 12/15/19 22:37 98.4 F 86 18 118/104 12/15/19 22:27 98.4 F 88 18 119/81 12/15/19 22:00 90 37 H 125/83 96 12/15/19 21:00 91 19 134/97 97 12/15/19 20:30 93 18 132/86 99 12/15/19 20:29 88 18 132/86 98 12/15/19 19:30 89 18 116/74 99 12/15/19 18:07 98.3 F 85 16 156/100 100 Intake and Output 12/15/19 12/16/19 12/16/19 22:59 06:59 14:59 Intake Total 200 1840 400 Output Total 300 700 500 Balance -100 1140 -100 Intake: IV 200 600 Sodium Chloride 0.9% 1, 200 600 000 ml @ 100 mls/hr IV . Q10H KATHERIN Rx#:[id number] Intake, IV Titration 400 Amount Sodium Chloride 0.9% 1, 400 000 ml @ 100 mls/hr IV . Q10H KATHERIN Rx#:[id number] Blood Product 0 1240 Rc As-1 Unit 0 310 [id number] Rc As-1 Unit 310 [id number] Output: Urine 300 700 500 Other: Weight 95.254 kg Gen: This is a 49-year-old male patient seen resting in bed in the intensive care unit. Patient appears to be in no acute distress. HEENT: Head is atraumatic, normocephalic. Pupils equal, round. Sclerae is anicteric. NECK: Supple. No JVD. No lymphadenopathy. No thyromegaly. LUNGS: Clear to auscultation. No wheezes or rhonchi. No intercostal retractions. HEART: Regular rate and rhythm. No murmur. ABDOMEN: Soft. Bowel sounds are present. No masses. No tenderness. No epigast fernando tenderness. EXTREMITIES: No pedal edema. No calf tenderness. There is tenderness on the right lumbar area approximately L4 5. NEUROLOGICAL: Patient is awake, alert and oriented x3. Cranial nerves 2 through 12 are grossly intact. Results CBC & Chem 7: 12/16/19 05:40 12/16/19 05:40 Labs: Abnormal Lab Results - Last 24 Hours (Table) 12/15/19 12/15/19 12/15/19 Range/Units 15:00 15:00 15:00 RBC 2.77 L (4.30-5.90) m/uL Hgb 8.1 L D (13.0-17.5) gm/dL Hct 25.5 L (39.0-53.0) % RDW 15.6 H (11.5-15.5) % APTT 19.7 L (22.0-30.0) sec Sodium (137-145) mmol/L Chloride 108 H (98-107) mmol/L BUN 22 H (9-20) mg/dL Creatinine 0.58 L (0.66-1.25) mg/dL Glucose 104 H (74-99) mg/dL POC Glucose (mg/dL) (75-99) mg/dL Calcium (8.4-10.2) mg/dL Alkaline Phosphatase (38-126) U/L Total Protein 5.7 L (6.3-8.2) g/dL Albumin 3.3 L (3.5-5.0) g/dL HDL Cholesterol (40-60) mg/dL Crossmatch 12/15/19 12/15/19 12/16/19 Range/Units 19:55 20:40 05:40 RBC (4.30-5.90) m/uL Hgb (13.0-17.5) gm/dL Hct (39.0-53.0) % RDW (11.5-15.5) % APTT (22.0-30.0) sec Sodium 136 L (137-145) mmol/L Chloride 109 H (98-107) mmol/L BUN 21 H (9-20) mg/dL Creatinine (0.66-1.25) mg/dL Glucose 108 H (74-99) mg/dL POC Glucose (mg/dL) 109 H (75-99) mg/dL Calcium 7.9 L (8.4-10.2) mg/dL Alkaline Phosphatase 35 L (38-126) U/L Total Protein 5.1 L (6.3-8.2) g/dL Albumin 2.8 L (3.5-5.0) g/dL HDL Cholesterol 24 L (40-60) mg/dL Crossmatch See Detail 12/16/19 Range/Units 05:40 RBC 3.04 L (4.30-5.90) m/uL Hgb 9.2 L (13.0-17.5) gm/dL Hct 28.9 L (39.0-53.0) % RDW (11.5-15.5) % APTT (22.0-30.0) sec Sodium (137-145) mmol/L Chloride (98-107) mmol/L BUN (9-20) mg/dL Creatinine (0.66-1.25) mg/dL Glucose (74-99) mg/dL POC Glucose (mg/dL) (75-99) mg/dL Calcium (8.4-10.2) mg/dL Alkaline Phosphatase (38-126) U/L Total Protein (6.3-8.2) g/dL Albumin (3.5-5.0) g/dL HDL Cholesterol (40-60) mg/dL Crossmatch Thrombosis Risk Factor Assmnt - DVT/VTE Prophylaxis DVT/VTE Prophylaxis: Mechanical Prophylaxis ordered - Choose All That Apply Each Factor Represents 1 point: Age 41-60 years, Obesity (BMI >25) Each Risk Factor Represents 2 Points: Patient confined to bed Thrombosis Risk Factor Assessment Total Risk Factor Score: 4 Thrombosis Risk Factor Assessment Level: Moderate Risk Assessment and Plan Plan: 1. Near syncopal episodes secondary to acute blood loss anemia secondary to acute GI bleed. Patient is status post transfusion of 2 units packed RBCs. GI consult with plan for EGD and colonoscopy tomorrow. Consult with pulmonary medicine. Consult with cardiology appreciated. Dr. Lo is advised that Brilinta may be discontinued permanently. Continue Protonix 40 mg IV push twice daily. 2. History of coronary artery disease with previous stenting done. Continue Lipitor. Hold aspirin 81 mg and Brilinta. 3. Hypertension. Continue Lopressor 25 mg twice daily 4. Hyperlipidemia. Continue Lipitor 40 mg daily 5. Sciatica. Continue [place] 7.5 one every 8 hours as needed, Flexeril 5 mg 3 times daily as needed, Lyrica 25 mg twice daily. Avoid nonsteroidal anti- inflammatory medications. 6. GERD. Protonix 40 mg IV push twice daily. 7. DVT prophylaxis. SCDs and MICKI beee. Patient admitted to the hospital for a minimum of 2 night stay. Discharge plan: home Impression and plan of care have been directed as dictated by the signing physician. Zaida Joseph nurse practitioner acting as scribe for signing physician.
[2019-12-16] MEDS ORDERED: PEG 3350-NA SULF,BICARB,CL/KCL 4,000 ML BOTTLE PO ONE (16:00)
[2019-12-16] MEDS: PANTOPRAZOLE 40 MG/10 ML VIAL IVP SCH (21:50)
--- NOTE | 2019-12-16 23:56 | P.CONS ---
History of Present Illness - Reason for Consult Consult date: 12/16/19 Anemia, GI bleed Requesting physician: Alan Curry - Chief Complaint Syncope - History of Present Illness 49-year-old male with a known history of hypertension, hyperlipidemia and coronary artery disease status post CT in 2012 with stenting in 2012 and 2017 as well as a history of GERD who presented to the hospital due to complaints of syncopal episodes. Patient was recently seen in the hospital discharge and presented back with similar complaints found to be anemic with a hemoglobin which had fallen from prior hospitalization. The patient complained of dizziness and shortness of breath. The patient has had approximately 5 stents placed in the past and was on treatment with an antiplatelet agent. Patient had reported dark bowel movements yesterday. He also reports reflux disease. No prior EGD or colonoscopy. Currently WBC 8.1, hemoglobin 9.2 status post transfusion, platelet count 170,000, INR 1.1, total bilirubin 0.5, alkaline phosphatase 35, AST 28 and ALT 8. Review of Systems REVIEW OF SYSTEMS: CONSTITUTIONAL: Denies any fevers, chills, weight change or fatigue. CARDIOVASCULAR: Denies any chest pain, palpitations high or low blood pressures RESPIRATORY: Denies any hemoptysis or cough, but did report shortness of breath on presentation. GENITOURINARY: No dysuria or hematuria. MUSCULOSKELETAL: No weakness reported. SKIN: Denies any new rashes or lesions, jaundice or pallor. PSYCHIATRIC: Denies any depression or anxiety. NEUROLOGY: Denies headache, denies any new focal deficits, but did report dizziness on presentation. EARS/NOSE/THROAT: No recent hearing change, congestion, nasal discharge or sore throat. EYES: No pain in eyes, discharge or change in vision. GASTROINTESTINAL: As per HPI. Past Medical History Past Medical History: Chest Pain / Angina, Hyperlipidemia, Hypertension, Myocardial Infarction (CT) Last Myocardial Infarction Date:: February 2013 History of Any Multi-Drug Resistant Organisms: None Reported Past Surgical History: Heart Catheterization With Stent Past Anesthesia/Blood Transfusion Reactions: No Reported Reaction Date of Last Stent Placement:: February 2013 Past Psychological History: No Psychological Hx Reported Smoking Status: Former smoker Past Alcohol Use History: Occasional Additional Past Alcohol Use History / Comment(s): Patient was a smoker and quit 20 years ago. Patient denies having any marijuana use, street drug use. He drinks alcohol occasionally with 1-2 beers. Patient works in a factory. Past Drug Use History: None Reported - Past Family History Father Family Medical History: Myocardial Infarction (CT) Additional Family Medical History / Comment(s): Father at 70 from CVA. Mother Additional Family Medical History / Comment(s): Mother in her early 70s due to complications from diabetes. Sister(s) Additional Family Medical History / Comment(s): Patient has 3 sisters and one bronson s history of coronary artery disease but no stents placed. He has 4 brothers. Patient has one son with no major medical problems. Medications and Allergies Home Medications Medication Instructions Recorded Confirmed Type Atorvastatin Calcium [Lipitor] 40 mg PO DAILY 02/18/14 12/15/19 History Metoprolol Tartrate [Lopressor] 25 mg PO BID 02/18/14 12/15/19 History Nitroglycerin Sl Tabs [Nitrostat] 0.4 mg SUBLINGUAL Q5M PRN #25 tab 02/19/14 Rx Aspirin EC [Ecotrin Low Dose] 81 mg PO DAILY 12/13/19 12/15/19 History Cyclobenzaprine [Flexeril] 5 mg PO TID PRN 12/13/19 12/15/19 History HYDROcodone/APAP 7.5-325MG [[place] 1 tab PO BID PRN 12/13/19 12/15/19 History 7.5-325] Pregabalin [Lyrica] 25 mg PO BID 12/13/19 12/15/19 History Ticagrelor [Brilinta] 90 mg PO BID 12/13/19 12/15/19 History Allergies Allergy/AdvReac Type Severity Reaction Status Date / Time No Known Allergies Allergy Verified 12/15/19 19:21 Physical Exam Vitals: Vital Signs Temp Pulse Pulse Resp BP BP Pulse Ox 12/16/19 13:20 97.8 F 66 17 118/70 99 12/16/19 11:00 63 14 122/69 96 12/16/19 10:00 76 20 132/83 96 12/16/19 09:00 72 20 131/76 97 12/16/19 08:00 98.1 F 75 20 131/80 95 12/16/19 07:00 67 18 113/81 95 12/16/19 06:00 63 14 113/81 94 L 12/16/19 05:00 65 12 131/77 94 L 12/16/19 04:48 98.4 F 65 12 113/64 95 12/16/19 04:00 98.4 F 81 21 129/76 96 12/16/19 03:00 78 14 154/101 95 12/16/19 02:59 18 12/16/19 02:00 80 18 130/81 97 12/16/19 01:50 98.2 F 81 13 146/87 97 12/16/19 01:40 98.2 F 88 18 130/81 98 12/16/19 01:37 98.2 F 85 18 140/85 97 12/16/19 01:00 83 16 130/86 98 12/16/19 00:00 95 16 115/78 98 12/15/19 23:07 98.4 F 91 17 127/83 12/15/19 23:00 89 13 115/104 96 12/15/19 22:37 98.4 F 86 18 118/104 12/15/19 22:27 98.4 F 88 18 119/81 12/15/19 22:00 90 37 H 125/83 96 Intake and Output 12/16/19 12/16/19 12/16/19 06:59 14:59 22:59 Intake Total 1840 400 480 Output Total 700 500 Balance 1140 -100 480 Intake: IV 600 Sodium Chloride 0.9% 1, 600 000 ml @ 100 mls/hr IV . Q10H KATHERIN Rx#:[id number] Intake, IV Titration 400 Amount Sodium Chloride 0.9% 1, 400 000 ml @ 100 mls/hr IV . Q10H KATHERIN Rx#:[id number] Oral 480 Blood Product 1240 As-1 Unit 310 [id number] As-1 Unit 310 [id number] Output: Urine 700 500 On physical examination, patient appears comfortable in no apparent distress. HEAD: Normocephalic, atraumatic. EYES: No scleral icterus. No conjunctival injection. MOUTH: No lesions, tongue midline. NECK: Trachea midline, no gross abnormalities. CHEST: Clear to auscultation with no wheezing or rhonchi appreciated. HEART: Regular rate and rhythm. ABDOMEN: Soft, obese. Bowel sounds are positive. No organomegaly. No guarding or rigidity. EXTREMITIES: No pedal edema. SKIN: No rashes, no jaundice. NEUROLOGIC: Alert and oriented x3. No focal deficits. Results CBC & Chem 7: 12/16/19 05:40 12/16/19 05:40 Labs: Abnormal Lab Results - Last 24 Hours (Table) 12/15/19 12/16/19 12/16/19 Range/Units 19:55 05:40 05:40 RBC 3.04 L (4.30-5.90) m/uL Hgb 9.2 L (13.0-17.5) gm/dL Hct 28.9 L (39.0-53.0) % Sodium 136 L (137-145) mmol/L Chloride 109 H (98-107) mmol/L BUN 21 H (9-20) mg/dL Glucose 108 H (74-99) mg/dL Calcium 7.9 L (8.4-10.2) mg/dL Alkaline Phosphatase 35 L (38-126) U/L Total Protein 5.1 L (6.3-8.2) g/dL Albumin 2.8 L (3.5-5.0) g/dL HDL Cholesterol 24 L (40-60) mg/dL Crossmatch See Detail Assessment and Plan (1) Anemia associated with acute blood loss Narrative/Plan: 49-year-old male with a history of coronary artery disease on antiplatelet therapy who presented to the hospital with shortness of breath, dizziness and concern over syncopal episodes. Patient was recently seen and discharge and presented back with complaints and was found to be anemic. Patient does report black colored stool. Concern is for GI bleed including peptic ulcer disease, severe gastritis or esophagitis, AVM or other etiology. No prior endoscopic history. Current Visit: Yes Status: Acute Code(s): D62 - ACUTE POSTHEMORRHAGIC ANEMIA SNOMED Code(s): 729003098 (2) GIB (gastrointestinal bleeding) Current Visit: Yes Status: Acute Code(s): K92.2 - GASTROINTESTINAL HEMORRHAGE, UNSPECIFIED SNOMED Code(s): 01960623 Plan: Supportive care Protonix 40 mg twice daily Continue monitor CBC and transfuse as needed Continue to monitor stool output Bowel prep ordered Nothing by mouth after midnight Plan for EGD and colonoscopy tomorrow Cardiology evaluated the patient and okay to discontinue antiplatelet therapy Thank you for allowing us to participate in the care of the patient
[2019-12-17] MEDS: SODIUM CHLORIDE 0.9% 1,000 ML IV SCH ×2 (00:32→04:29)
[2019-12-17] MEDS: HYDROcodone/APAP 7.5-325MG 1 EACH TAB PO PRN ×2 (04:29→14:22)
[2019-12-17 07:39] LABS: Basophils % (A) 0 %; Eosinophils # (A) 0.1 k/uL (0-0.7); Eosinophils % (A) 2 %; HCT 26.4 % (39.0-53.0); HGB 8.5 gm/dL (13.0-17.5); Lymphocytes % (A) 19 %; MCH 30.6 pg (25.0-35.0); MCHC 32.2 g/dL (31.0-37.0); MCV 94.9 fL (80.0-100.0); Mean Platelet Volume 7.4; Monocytes # (A) 0.4 k/uL (0-1.0); Monocytes % (A) 7 %; Neutrophils # (A) 3.8 k/uL (1.3-7.7); Neutrophils % (A) 69 %; Platelet Count 190 k/uL (150-450); RBC 2.78 m/uL (4.30-5.90); WBC 5.6 k/uL (3.8-10.6)
[2019-12-17 07:51] LABS: African American GFR (CKD) >90 (>60 ml/min/1.73 sqM); Anion Gap 4 mmol/L; Blood Urea Nitrogen 14 mg/dL (9-20); Carbon Dioxide 25 mmol/L (22-30); Chloride 109 mmol/L (98-107); Glucose 86 mg/dL (74-99); Non-African American GFR(CKD) >90 (>60 ml/min/1.73 sqM); Sodium 138 mmol/L (137-145)
[2019-12-17] MEDS: METOPROLOL TARTRATE 50 MG TAB PO SCH (08:31)
[2019-12-17] MEDS: PANTOPRAZOLE 40 MG/10 ML VIAL IVP SCH (08:32)
[2019-12-17] MEDS: ATORVASTATIN 40 MG TAB PO SCH (08:32)
[2019-12-17] MEDS: PREGABALIN 25 MG CAP PO SCH (09:49)
[2019-12-17] MEDS ORDERED: IV FLUID CONTINUATION 1,000 ML IV ONE (13:06)
[2019-12-17] MEDS ORDERED: PROPOFOL 10 MG/ML 20 ML VIAL IV ONE (13:06)
[2019-12-17] MEDS ORDERED: LIDOCAINE 1% INJ 10MG/ML (20 ML MDV) ONE (13:06)
--- NOTE | 2019-12-17 13:25 | P.DS ---
Providers Date of admission: 12/15/19 18:39 Expected date of discharge: 12/17/19 Attending physician: Alan Curry Consults: 12/15/19 18:39 Consult Physician Urgent Consulting Provider: Celena Sheikh Consult Reason/Comments: nearSyncope Do you want consulting provider notified?: Yes 12/15/19 19:19 Consult Physician Urgent Consulting Provider: Lázaro Fall Consult Reason/Comments: gib Do you want consulting provider notified?: Yes 12/15/19 19:31 Consult Physician Routine Consulting Provider: Monica Savage Consult Reason/Comments: GIB Do you want consulting provider notified?: Yes Primary care physician: Ashlee Germania [facility] Course: This is a 49-year-old male patient of Dr. Solo and Dr. JOSIAS Fox with past medical history of hypertension, hyperlipidemia, MT in 2013 status post PCI and stenting followed by stent placement in the RCA and LAD in 2018, severe GERD. Patient was recently in the emergency center/observation unit for complaints of syncopal episodes. Tilt table test was done that revealed a 12-lead EKG showing isolated Q wave in lead 2. No evidence of neurocardiogenic syncope or dysautonomia. Echocardiogram at that time revealed EF of 50-55%, mild mitral regurgitation, mild tricuspid regurgitation. Patient has been cleared for discharge by cardiology. No medication changes were made. While patient was in the hospital, he was complaining of significant sciatica pain on the right side for which she did receive a dose of Mobic. The patient states he did fine at home until last evening he had another near syncopal episode along with dizziness and lightheadedness. He states that when he went from a sitting to a standing position his heart rate was racing and he has some shortness of breath. He denies having any chest pain. He apparently has had black stools for a few days. Patient came into [facility] emergency center for evaluation. He was afebrile, blood pressure 156/100, heart rate 85, pulse ox 100%. EKG was a sinus rhythm with no acute ST-T wave changes. WBC 9.4, hemoglobin 8.1 down from 11.1 on previous hospitalization, platelet count 231. Sodium 137, potassium 3.9, chloride 108, CO2 22, BUN 22 creatinine 0.58, blood sugar 104. Lactic acid 2.0, proBNP 29, d-dimer 0.24. Liver function tests were normal, troponin 0.012 on 2 draws. Triglycerides 103, cholesterol 91, LDL 46, HDL 24. TSH 1.140. Urinalysis negative. Patient was transfused 2 units of packed RBCs in the emergency center. Patient was admitted to the intensive care unit initially and consults in place with GI with plan for EGD and colonoscopy tomorrow. Dr. Fernandes also on consult for intensive care management. Patient has been cleared for transfer out of the intensive care unit. 12/17: Repeat hemoglobin is 8.5. Patient denies any lightheadedness or dizziness. EGD revealed no active bleeding or old blood. Small cratered duodenal bulb ulcer without high risk stigmata for rebleeding biopsied. Biopsies of the antrum and body and duodenum. Colonoscopy revealed diminutive polyp was removed with cold forceps from the sigmoid colon and hepatic flexure. Small polyps removed from the transverse colon with hot snare polypectomy in the ascending colon with cold snare polypectomy. Mild left colonic diverticulosis. Old blood noted throughout the entire colonoscopy with no active bleeding or pathology to explain anemia. Patient will be discharged home today in stable condition. Patient is to keep his previously scheduled appointments with Dr. Solo and Dr. JOSIAS Fox. Discharge diagnoses: 1. Near syncopal episodes secondary to acute blood loss anemia secondary to acute GI bleed of unclear source. 2. History of coronary artery disease with previous stenting done. 3. Hypertension. 4. Hyperlipidemia. 5. Sciatica. 6. GERD. Discharge plan: home Impression and plan of care have been directed as dictated by the signing physician. Zaida Joseph nurse practitioner acting as scribe for signing physician. Patient Condition at Discharge: Good Plan - Discharge Summary Discharge Rx Participant: Yes New Discharge Prescriptions: New Metoprolol Tartrate [Lopressor] 50 mg PO BID #60 tab Pantoprazole Sodium [Protonix] 40 mg PO AC-BID #60 tablet. Continue Atorvastatin Calcium [Lipitor] 40 mg PO DAILY Nitroglycerin Sl Tabs [Nitrostat] 0.4 mg SUBLINGUAL Q5M PRN #25 tab PRN Reason: Chest Pain Pregabalin [Lyrica] 25 mg PO BID HYDROcodone/APAP 7.5-325MG [[place] 7.5-325] 1 tab PO BID PRN PRN Reason: Pain Cyclobenzaprine [Flexeril] 5 mg PO TID PRN PRN Reason: Muscle Pain Aspirin EC [Ecotrin Low Dose] 81 mg PO DAILY #0 Discontinued Metoprolol Tartrate [Lopressor] 25 mg PO BID Ticagrelor [Brilinta] 90 mg PO BID Discharge Medication List Atorvastatin Calcium [Lipitor] 40 mg PO DAILY 02/18/14 [History] Nitroglycerin Sl Tabs [Nitrostat] 0.4 mg SUBLINGUAL Q5M PRN #25 tab 02/19/14 [Rx] Cyclobenzaprine [Flexeril] 5 mg PO TID PRN 12/13/19 [History] HYDROcodone/APAP 7.5-325MG [[place] 7.5-325] 1 tab PO BID PRN 12/13/19 [History] Pregabalin [Lyrica] 25 mg PO BID 12/13/19 [History] Aspirin EC [Ecotrin Low Dose] 81 mg PO DAILY #0 12/17/19 [Rx] Metoprolol Tartrate [Lopressor] 50 mg PO BID #60 tab 12/17/19 [Rx] Pantoprazole Sodium [Protonix] 40 mg PO AC-BID #60 tablet. 12/17/19 [Rx] Follow up Appointment(s)/Referral(s): Dodie Fox MD [STAFF PHYSICIAN] - 12/20/19 2:30 pm (At [facility] [place] Ashlee Solo MD [Primary Care Provider] - 12/21/19 8:45 am () Lázaro Fall MD [STAFF PHYSICIAN] - 1 Week (Please call office to schedule appt. Office closed at time of discharge. ) Patient Instructions/Handouts: Metoprolol (By mouth), Pantoprazole (By mouth), Gastrointestinal Bleeding (DC), Low Fiber Diet (DC), Anemia (DC) Activity/Diet/Wound Care/Special Instructions: Activity as tolerated Discharge Disposition: HOME SELF-CARE
[2019-12-17] MEDS ORDERED: SODIUM CHLORIDE 0.9% 500 ML 500 ML IV ONE (13:29)
--- NOTE | 2019-12-17 13:57 | P.PCN ---
Date of Procedure: 12/17/19 Description of Procedure: Brief history: 49-year-old male with a known history of hypertension, hyperlipidemia and coronary artery disease status post [place] in 2013 with stenting in 2012 and 2018 as well as a history of GERD who presented to the hospital due to complaints of syncopal episodes. Patient was recently seen in the hospital discharge and presented back with similar complaints found to be anemic with a hemoglobin which had fallen from prior hospitalization. The patient complained of dizziness and shortness of breath. The patient has had approximately 5 stents placed in the past and was on treatment with an antiplatelet agent. Patient had reported dark bowel movements yesterday. He also reports reflux disease. No prior EGD or colonoscopy. Currently WBC 8.1, hemoglobin 9.2 status post transfusion, platelet count 170,000, INR 1.1, total bilirubin 0.5, alkaline ph osphatase 35, AST 28 and ALT 8. Procedure performed: Esophagogastroduodenoscopy with biopsy Colonoscopy with polypectomy Estimated blood loss: Minimal. Preoperative diagnosis: Melena, anemia of acute blood loss, no prior colonoscopy Anesthesia: MAC Procedure: After informed consent was obtained from the patient was brought into the endoscopy unit and IV sedation was administered by anesthesia under continuous monitoring. Initially upper endoscopy was done. The Olympus GF 190 video endoscope was inserted into the mouth and esophagus intubated without any difficulty and was gradually advanced into the stomach and duodenum and carefully examined. The bulb and second part of the duodenum appeared grossly normal except for a nonbleeding duodenal bulb ulcer measuring approximately 5 mm in size without any high risk stigmata for bleeding with small biopsies of the duodenal ulcer taken. The second and third portion of the duodenum also appeared normal with biopsies taken. The scope was then withdrawn into the stomach adequately insufflated with air and upon careful examination the antrum and body, cardia and fundus appeared normal, with biopsies taken of antrum and body to rule out Helicobacter pylori. The scope was then withdrawn into the esophagus. The GE junction was located at 40 cm to the incisors. It appeared regular with no erythema erosions or ulcerations. Rest of the esophagus appeared normal. Patient tolerated the procedure well. At this time the patient continued to remain sedation. Initial digital rectal examination was normal. Olympus CF 190 video colonoscope was then inserted into the rectum and gradually advanced to the cecum without any difficulty. Careful examination was performed as the scope was gradually being withdrawn. The prep was excellent. The cecum, ascending colon, transverse colon, descending colon, sigmoid colon and rectum appeared normal. The terminal ileum was intubated and appeared normal. A few scattered small diverticula noted in the left colon. A sessile 7 mm transverse colon polyp removed with hot snare polypectomy. Sessile 5 mm ascending colon polyp removed with cold snare polypectomy. Diminutive 1 mm hepatic flexure polyp removed with cold forcep polypectomy. Diminutive 2 mm sigmoid colon polyp removed with cold forcep polypectomy. Retroflexion was performed in the rectum and no lesions were noted. Patient tolerated the procedure well. Impression: 1. No active bleeding or old blood noted on the EGD. Small cratered duodenal bulb ulcer without high-risk stigmata for rebleeding biopsied. Biopsies of the antrum body and duodenum. 2. Diminutive polyp was removed with cold forceps from the sigmoid colon and hepatic flexure. Small polyps removed from the transverse colon with hot snare polypectomy and the ascending colon with cold snare polypectomy. Mild left colonic diverticulosis. Old blood noted throughout the entire colonoscopy with no active bleeding or pathology to explain anemia. Recommendations: Findings of this examination were discussed with the patient as well as the medical team okay to resume low fiber diet. Patient should be discharged on twice daily Protonix therapy. Okay to hold/discontinue Brilinta per the cardiology service. Await pathology from biopsies. Would recommend repeat colonoscopy in 5 years.
[2019-12-17 14:24] VITALS: RESP 18; TEMP 97.8
[2019-12-17 16:25] VITALS: BP 104/68; PULSE 80
== END 2019-12-17 17:44 | disposition home or self-care (01) | DRG 378 ==
LOC: EC 17:55 → 2SICU 18:39 → 5NMEDONC 12-16 13:45 → 6NMEDSUR 12-17 13:59
PROVIDERS: ADMIT Internal Medicine Geriatric Medicine; ATTEND Internal Medicine Geriatric Medicine
PROC: 30233N1 Transfusion of Nonautologous Red Blood Cells into Peripheral Vein, Percutaneous Approach (ICD-10-PCS; 2019-12-15)
PROC: 0DBL8ZX Excision of Transverse Colon, Via Natural or Artificial Opening Endoscopic, Diagnostic (ICD-10-PCS; principal; 2019-12-17 13:00)
PROC: 0DB98ZX Excision of Duodenum, Via Natural or Artificial Opening Endoscopic, Diagnostic (ICD-10-PCS; principal; 2019-12-17 13:00)
PROC: 0DBN8ZX Excision of Sigmoid Colon, Via Natural or Artificial Opening Endoscopic, Diagnostic (ICD-10-PCS; principal; 2019-12-17 13:00)
PROC: 0DBK8ZX Excision of Ascending Colon, Via Natural or Artificial Opening Endoscopic, Diagnostic (ICD-10-PCS; principal; 2019-12-17 13:00)
PROC: 0DB78ZX Excision of Stomach, Pylorus, Via Natural or Artificial Opening Endoscopic, Diagnostic (ICD-10-PCS; principal; 2019-12-17 13:00)
DX: K57.31 Diverticulosis of large intestine without perforation or abscess with bleeding (principal); D62 Acute posthemorrhagic anemia; K26.9 Duodenal ulcer, unspecified as acute or chronic, without hemorrhage or perforation; E78.5 Hyperlipidemia, unspecified; K21.9 Gastro-esophageal reflux disease without esophagitis; K63.5 Polyp of colon; I08.1 Rheumatic disorders of both mitral and tricuspid valves; I95.1 Orthostatic hypotension; I10 Essential (primary) hypertension; M54.31 Sciatica, right side; I25.10 Atherosclerotic heart disease of native coronary artery without angina pectoris; I25.2 Old myocardial infarction; E66.9 Obesity, unspecified; Z68.31 Body mass index [BMI] 31.0-31.9, adult; Z79.82 Long term (current) use of aspirin; Z79.02 Long term (current) use of antithrombotics/antiplatelets; Z79.899 Other long term (current) drug therapy; Z95.5 Presence of coronary angioplasty implant and graft; Z87.891 Personal history of nicotine dependence; Z82.3 Family history of stroke; Z83.3 Family history of diabetes mellitus; Z82.49 Family history of ischemic heart disease and other diseases of the circulatory system
CPT/HCPCS: 36415; 43239; 45380; 45385; 80048; 80053; 80061; 81003; 82550; 82553; 83605; 83735; 83880; 84100; 84443; 84484; 85025; 85379; 85610; 85730; 86850; 86900; 86901; 86920; 88305; 88342; 93005; 96361; 96374; 96375; 99291

== ENCOUNTER → 2020-02-28 | Outpatient (CLI) | payer BC ==
[2020-02-28 09:05] LABS: Anisocytosis Slight; HCT 43.8 % (39.0-53.0); HGB 13.1 gm/dL (13.0-17.5); Hypochromasia Moderate; MCH 24.2 pg (25.0-35.0); MCV 80.9 fL (80.0-100.0); Mean Platelet Volume 8.4; Microcytosis Slight; Platelet Count 187 k/uL (150-450); RBC 5.41 m/uL (4.30-5.90); RDW 17.5 % (11.5-15.5); WBC 7.9 k/uL (3.8-10.6)
[2020-02-28 17:21] LABS: % Iron Saturation 8.4 (15.00-50.00); African American GFR (CKD) 119.9 (60.0-200.0); Anion Gap 7.1 mmol/L (4.00-12.00); BUN/Creat Ratio 18.75 Ratio (12.00-20.00); Calcium 9.2 mg/dL (8.7-10.3); Carbon Dioxide 25.9 mmol/L (21.6-31.8); Magnesium 1.8 mg/dL (1.5-2.4); Non-African American GFR(CKD) 103.4 (60.0-200.0); Potassium 4.5 mmol/L (3.5-5.5)
== END | disposition home or self-care (01) ==
LOC: LABWHC1 08:15
PROVIDERS: ATTEND Nurse Practitioner
DX: D50.0 Iron deficiency anemia secondary to blood loss (chronic) (principal); K92.2 Gastrointestinal hemorrhage, unspecified
CPT/HCPCS: 36415; 80048; 82728; 83540; 83550; 83735; 85027

== ENCOUNTER → 2020-11-17 | Outpatient (CLI) | payer BC ==
[2020-11-17 10:39] LABS: Basophils % (A) 1 %; Eosinophils # (A) 0.2 k/uL (0-0.7); Eosinophils % (A) 4 %; HCT 45.1 % (39.0-53.0); HGB 15.2 gm/dL (13.0-17.5); Lymphocytes # (A) 1.3 k/uL (1.0-4.8); Lymphocytes % (A) 28 %; MCH 30.1 pg (25.0-35.0); MCHC 33.7 g/dL (31.0-37.0); MCV 89.1 fL (80.0-100.0); Mean Platelet Volume 8.1; Monocytes # (A) 0.4 k/uL (0-1.0); Monocytes % (A) 9 %; Neutrophils # (A) 2.7 k/uL (1.3-7.7); Neutrophils % (A) 57 %; Platelet Count 174 k/uL (150-450); RBC 5.06 m/uL (4.30-5.90); RDW 12.7 % (11.5-15.5); WBC 4.8 k/uL (3.8-10.6)
[2020-11-17 17:33] LABS: Albumin 4.5 g/dL (3.80-4.90); Albumin/Globulin Ratio 2.25 (1.60-3.17); BUN/Creat Ratio 18.75 Ratio (12.00-20.00); Chol/HDL Ratio 3.77; LDL Cholesterol,Calculated 63.4 mg/dL (0.0-131.0); Non-African American GFR(CKD) 102.7 (60.0-200.0); Potassium 4.3 mmol/L (3.5-5.5); Total Bilirubin 1.1 mg/dL (0.2-1.2); Total Protein 6.5 g/dL (6.2-8.2); VLDL Calculation 19.6 mg/dL (5.00-40.00)
== END | disposition home or self-care (01) ==
LOC: LABWHC1 09:14
PROVIDERS: ATTEND Family Medicine
DX: I10 Essential (primary) hypertension (principal); E78.5 Hyperlipidemia, unspecified; E61.1 Iron deficiency
CPT/HCPCS: 36415; 80053; 80061; 82550; 82607; 84443; 85025

== ENCOUNTER → 2021-05-18 | Outpatient (CLI) | payer BC ==
[2021-05-18 10:12] LABS: Appearance,Urine Clear (Clear); Bilirubin,Urine Negative (Negative); Blood,Urine Trace (Negative); Color,Urine Yellow; Glucose,Urine (UA) Negative (Negative); Hyaline Casts,Urine 1 /lpf (0-2); Ketones,Urine Negative (Negative); Leukocyte Esterase,Urine Negative (Negative); Mucus,Urine Rare /hpf; Nitrite,Urine Negative (Negative); PH, Urine 5.5 (5.0-8.0); Protein,Urine Negative (Negative); RBC,Urine 1 /hpf (0-5); Urobilinogen,Urine <2.0 mg/dL (<2.0); WBC,Urine <1 /hpf (0-5)
[2021-05-18 15:00] LABS: Basophils # (A) 0.03 X 10*3/uL (0.00-0.10); Basophils % (A) 0.4 %; Eosinophils # (A) 0.33 X 10*3/uL (0.04-0.35); Eosinophils % (A) 4.2 %; HCT 47.7 % (39.6-50.0); HGB 15.4 g/dL (13.0-17.0); Lymphocytes # (A) 1.88 X 10*3/uL (0.90-5.00); MCHC 32.3 g/dL (32.0-37.0); MCV 89.8 fL (80.0-97.0); Monocytes # (A) 0.84 X 10*3/uL (0.20-1.00); Monocytes % (A) 10.7 %; Neutrophils # (A) 4.73 X 10*3/uL (1.80-7.70); Neutrophils % (A) 60.4 %; Platelet Count 192 X 10*3/uL (140-440); RBC 5.31 X 10*6/uL (4.40-5.60); RDW 13.1 % (11.5-14.5); WBC 7.83 X 10*3/uL (4.50-10.00)
[2021-05-18 20:26] LABS: Albumin 4.3 g/dL (3.80-4.90); Albumin/Globulin Ratio 1.65 (1.60-3.17); Anion Gap 9.8 mmol/L (4.00-12.00); BUN/Creat Ratio 16.25 Ratio (12.00-20.00); Calcium 9.2 mg/dL (8.7-10.3); Carbon Dioxide 24.2 mmol/L (21.6-31.8); Chol/HDL Ratio 4.13; Globulin 2.6 g/dL (1.6-3.3); LDL Cholesterol,Calculated 68.4 mg/dL (0.0-131.0); Magnesium 1.8 mg/dL (1.5-2.4); Non-African American GFR(CKD) 102.7 (60.0-200.0); Total Protein 6.9 g/dL (6.2-8.2); VLDL Calculation 28.6 mg/dL (5.00-40.00)
== END | disposition home or self-care (01) ==
LOC: LABWHC1 09:01
PROVIDERS: ATTEND Family Medicine
DX: E78.5 Hyperlipidemia, unspecified (principal); N40.0 Benign prostatic hyperplasia without lower urinary tract symptoms; I25.10 Atherosclerotic heart disease of native coronary artery without angina pectoris; I10 Essential (primary) hypertension
CPT/HCPCS: 36415; 80053; 80061; 81001; 82550; 83735; 84153; 84443; 85025

== ENCOUNTER → 2022-05-20 | Outpatient (CLI) | payer BC ==
[2022-05-20 15:15] LABS: Basophils # (A) 0.02 X 10*3/uL (0.00-0.10); Basophils % (A) 0.3 %; Eosinophils # (A) 0.34 X 10*3/uL (0.04-0.35); Eosinophils % (A) 4.7 %; HGB 14.9 g/dL (13.0-17.0); Immature Grans, Automated 0.3 %; Lymphocytes # (A) 1.89 X 10*3/uL (0.90-5.00); Lymphocytes % (A) 26.3 %; MCH 28.4 pg (27.0-32.0); MCHC 31.7 g/dL (32.0-37.0); MCV 89.5 fL (80.0-97.0); Mean Platelet Volume 11.4 fL (9.5-12.2); Monocytes # (A) 0.81 X 10*3/uL (0.20-1.00); Monocytes % (A) 11.3 %; NRBC Per 100 WBC 0 /100 WBCS (0.0-0.0); Neutrophils # (A) 4.12 X 10*3/uL (1.80-7.70); Neutrophils % (A) 57.1 %; Platelet Count 189 X 10*3/uL (140-440); RBC 5.25 X 10*6/uL (4.40-5.60); RDW 13.3 % (11.5-14.5)
[2022-05-20 16:12] LABS: ALT 51 U/L (10-49); AST 27 U/L (14-35); African American GFR (CKD) 118.5 (60.0-200.0); Albumin 4.4 g/dL (3.8-4.9); Albumin/Globulin Ratio 1.71 (1.60-3.17); Alkaline Phosphatase 49 U/L (41-126); BUN/Creat Ratio 22.74 Ratio (12.00-20.00); Blood Urea Nitrogen 18.1 mg/dL (9.0-27.0); Calcium 9.1 mg/dL (8.7-10.3); Chloride 104 mmol/L (96-109); Chol/HDL Ratio 4.22 Ratio; Globulin 2.6 g/dL (1.6-3.3); Glucose 108 mg/dL (70-110); LDL Cholesterol,Calculated 75.4 mg/dL (0.0-131.0); Non-African American GFR(CKD) 102.2 (60.0-200.0); Potassium 4.2 mmol/L (3.5-5.5); Sodium 139 mmol/L (135-145)
== END | disposition home or self-care (01) ==
LOC: LABWHC1 09:20
PROVIDERS: ATTEND Family Medicine
DX: I10 Essential (primary) hypertension (principal); E78.5 Hyperlipidemia, unspecified; N40.0 Benign prostatic hyperplasia without lower urinary tract symptoms
CPT/HCPCS: 80061; 80053; 84443; 85025; 36415; G0103

== ENCOUNTER → 2022-11-11 | Outpatient (CLI) | payer BC ==
[2022-11-11 14:31] LABS: Basophils # (A) 0.04 X 10*3/uL (0.00-0.10); Basophils % (A) 0.6 %; Eosinophils # (A) 0.27 X 10*3/uL (0.04-0.35); Eosinophils % (A) 3.8 %; HCT 46.3 % (39.6-50.0); HGB 14.9 g/dL (13.0-17.0); Immature Grans, Automated 0.1 %; Lymphocytes # (A) 1.66 X 10*3/uL (0.90-5.00); Lymphocytes % (A) 23.1 %; MCH 28.9 pg (27.0-32.0); MCHC 32.2 g/dL (32.0-37.0); MCV 89.7 fL (80.0-97.0); Mean Platelet Volume 11.1 fL (9.5-12.2); Monocytes # (A) 0.72 X 10*3/uL (0.20-1.00); NRBC Per 100 WBC 0 /100 WBCS (0.0-0.0); Neutrophils # (A) 4.48 X 10*3/uL (1.80-7.70); Neutrophils % (A) 62.4 %; Platelet Count 187 X 10*3/uL (140-440); RBC 5.16 X 10*6/uL (4.40-5.60); WBC 7.18 X 10*3/uL (4.50-10.00)
[2022-11-11 15:21] LABS: ALT 29 U/L (10-49); AST 24 U/L (14-35); African American GFR (CKD) 114.5 (60.0-200.0); Albumin 4.3 g/dL (3.8-4.9); Albumin/Globulin Ratio 1.57 (1.60-3.17); Alkaline Phosphatase 56 U/L (41-126); BUN/Creat Ratio 20.97 Ratio (12.00-20.00); Blood Urea Nitrogen 17.8 mg/dL (9.0-27.0); Calcium 8.6 mg/dL (8.7-10.3); Carbon Dioxide 20.8 mmol/L (20.0-27.5); Chloride 107 mmol/L (96-109); Chol/HDL Ratio 3.62 Ratio; Creatine Kinase 214 U/L (35-257); Globulin 2.7 g/dL (1.6-3.3); Glucose 116 mg/dL (70-110); LDL Cholesterol,Calculated 63.6 mg/dL (0.0-131.0); Non-African American GFR(CKD) 98.8 (60.0-200.0); Potassium 4.3 mmol/L (3.5-5.5); Sodium 139 mmol/L (135-145)
[2022-11-11 15:40] LABS: Hepatitis A Antibody IgM Nonreactive (Nonreactive)
[2022-11-11 15:41] LABS: Hepatitis B Core IgM Nonreactive (Nonreactive); Hepatitis B Surface Antigen Nonreactive (Nonreactive); Hepatitis C IgG Antibody Nonreactive (Nonreactive)
== END | disposition home or self-care (01) ==
LOC: LABWHC1 09:29
PROVIDERS: ATTEND Family Medicine
DX: I10 Essential (primary) hypertension (principal); K75.81 Nonalcoholic steatohepatitis (NASH); E78.5 Hyperlipidemia, unspecified
CPT/HCPCS: 36415; 80053; 80061; 80074; 82550; 84443; 85025

== ENCOUNTER → 2023-04-21 | Outpatient (CLI) | payer BC ==
[2023-04-21 16:31] LABS: ALT 32 U/L (10-49); AST 21 U/L (14-35); Albumin 4.2 d/dL (3.8-4.9); Alkaline Phosphatase 58 U/L (41-126); BUN/Creat Ratio 16.38 Ratio (12.00-20.00); Blood Urea Nitrogen 13.1 mg/dL (9.0-27.0); Calcium 8.8 mg/dL (8.7-10.3); Carbon Dioxide 22.1 mmol/L (21.6-31.8); Chloride 110 mmol/L (96-109); Globulin 2.8 d/dL (1.6-3.3); Glucose 119 mg/dL (70-110); Potassium 4.3 mmol/L (3.5-5.5); Sodium 142 mmol/L (135-145); Total Bilirubin 0.6 mg/dL (0.3-1.2)
[2023-04-21 18:14] LABS: Basophils # (A) 0.04 X 10*3/uL (0.00-0.10); Basophils % (A) 0.7 %; HCT 46.1 % (39.6-50.0); HGB 14.5 d/dL (12.0-15.0); Lymphocytes # (A) 1.47 X 10*3/uL (0.90-5.00); Lymphocytes % (A) 24.4 %; MCHC 31.5 d/dL (32.0-37.0); MCV 92.2 FL (80.0-97.0); Mean Platelet Volume 11.7 FL (9.5-12.2); Monocytes # (A) 0.66 X 10*3/uL (0.20-1.00); NRBC Per 100 WBC 0 X 10*3/uL (0.00-0.01); Neutrophils # (A) 3.54 X 10*3/uL (1.80-7.70); Neutrophils % (A) 58.7 %; Platelet Count 185 X 10*3/uL (140-440); RDW 13.5 % (11.5-14.5); WBC 6.02 X 10*3/uL (4.50-10.00)
== END | disposition home or self-care (01) ==
LOC: LABWHC1 09:30
PROVIDERS: ATTEND Family Medicine
DX: Z00.00 Encounter for general adult medical examination without abnormal findings (principal); K75.81 Nonalcoholic steatohepatitis (NASH); N40.0 Benign prostatic hyperplasia without lower urinary tract symptoms; E53.8 Deficiency of other specified B group vitamins; E55.9 Vitamin D deficiency, unspecified; R73.9 Hyperglycemia, unspecified
CPT/HCPCS: 36415; 80053; 82306; 82607; 83036; 84153; 84443; 85025

== ENCOUNTER → 2023-10-14 | Outpatient (CLI) | payer BC ==
[2023-10-14 15:00] LABS: Basophils # (A) 0.03 X 10*3/uL (0.00-0.10); Basophils % (A) 0.4 %; Eosinophils # (A) 0.27 X 10*3/uL (0.04-0.35); Eosinophils % (A) 3.2 %; HCT 45.1 % (39.6-50.0); HGB 14.7 g/dL (13.0-17.0); Lymphocytes # (A) 1.86 X 10*3/uL (0.90-5.00); MCH 29.5 pg (27.0-32.0); MCHC 32.6 g/dL (32.0-37.0); MCV 90.4 FL (80.0-97.0); Mean Platelet Volume 11.2 FL (9.5-12.2); Monocytes # (A) 0.79 X 10*3/uL (0.20-1.00); Monocytes % (A) 9.3 %; NRBC Per 100 WBC 0 X 10*3/uL (0.00-0.01); Neutrophils # (A) 5.49 X 10*3/uL (1.80-7.70); Platelet Count 186 X 10*3/uL (140-440); RBC 4.99 X 10*6/uL (4.40-5.60); RDW 13.1 % (11.5-14.5); WBC 8.45 X 10*3/uL (4.50-10.00)
[2023-10-14 15:18] LABS: ALT 38 U/L (10-49); AST 21 U/L (14-35); Albumin 4.3 g/dL (3.8-4.9); Albumin/Globulin Ratio 1.59 Ratio (1.60-3.17); Alkaline Phosphatase 52 U/L (41-126); BUN/Creat Ratio 14.89 Ratio (12.00-20.00); Blood Urea Nitrogen 13.4 mg/dL (9.0-27.0); Calcium 9.1 mg/dL (8.7-10.3); Carbon Dioxide 23.5 mmol/L (21.6-31.8); Chloride 107 mmol/L (96-109); Chol/HDL Ratio 3.56 Ratio; Globulin 2.7 g/dL (1.6-3.3); Glucose 105 mg/dL (70-110); LDL Cholesterol,Calculated 64.6 mg/dL (0.0-131.0); Potassium 4.5 mmol/L (3.5-5.5); Sodium 141 mmol/L (135-145); Total Bilirubin 0.8 mg/dL (0.3-1.2)
== END | disposition home or self-care (01) ==
LOC: LABWHC1 09:16
PROVIDERS: ATTEND Family Medicine
DX: I10 Essential (primary) hypertension (principal); E78.5 Hyperlipidemia, unspecified; R73.9 Hyperglycemia, unspecified
CPT/HCPCS: 36415; 80053; 80061; 83036; 84443; 85025

== ENCOUNTER → 2024-04-12 | Outpatient (CLI) | payer BC ==
[2024-04-12 14:47] LABS: Basophils # (A) 0.04 X 10*3/uL (0.00-0.10); Basophils % (A) 0.6 %; Eosinophils # (A) 0.28 X 10*3/uL (0.04-0.35); Eosinophils % (A) 4.3 %; Lymphocytes # (A) 1.86 X 10*3/uL (0.90-5.00); Lymphocytes % (A) 28.4 %; MCH 28.7 pg (27.0-32.0); MCHC 31.8 g/dL (32.0-37.0); MCV 90.2 FL (80.0-97.0); Mean Platelet Volume 11.3 FL (9.5-12.2); Monocytes # (A) 0.72 X 10*3/uL (0.20-1.00); NRBC Per 100 WBC 0 X 10*3/uL (0.00-0.01); Neutrophils # (A) 3.64 X 10*3/uL (1.80-7.70); Neutrophils % (A) 55.4 %; Platelet Count 181 X 10*3/uL (140-440); RBC 4.88 X 10*6/uL (4.40-5.60); RDW 13.2 % (11.5-14.5); WBC 6.56 X 10*3/uL (4.50-10.00)
[2024-04-12 15:37] LABS: ALT 43 U/L (10-49); AST 25 U/L (14-35); Albumin 4.4 g/dL (3.8-4.9); Albumin/Globulin Ratio 1.91 Ratio (1.60-3.17); Alkaline Phosphatase 51 U/L (41-126); BUN/Creat Ratio 16.38 Ratio (12.00-20.00); Blood Urea Nitrogen 13.1 mg/dL (9.0-27.0); Calcium 8.8 mg/dL (8.7-10.3); Carbon Dioxide 24.8 mmol/L (21.6-31.8); Chloride 108 mmol/L (96-109); Chol/HDL Ratio 3.31 Ratio; Creatine Kinase 318 U/L (35-257); Globulin 2.3 g/dL (1.6-3.3); Glucose 122 mg/dL (70-110); Potassium 4.8 mmol/L (3.5-5.5); Sodium 142 mmol/L (135-145); Total Bilirubin 0.7 mg/dL (0.3-1.2); Total Protein 6.7 g/dL (6.2-8.2); VLDL Calculation 19.84 mg/dL (5.00-40.00)
== END | disposition home or self-care (01) ==
LOC: LABWHC1 09:19
PROVIDERS: ATTEND Family Medicine
DX: I25.10 Atherosclerotic heart disease of native coronary artery without angina pectoris (principal); R73.03 Prediabetes
CPT/HCPCS: 36415; 80053; 80061; 82550; 83036; 84443; 85025

== ENCOUNTER → 2024-09-20 | Outpatient (CLI) | payer BC ==
[2024-09-20 15:47] LABS: Basophils # (A) 0.05 X 10*3/uL (0.00-0.10); Basophils % (A) 0.6 %; Eosinophils # (A) 0.46 X 10*3/uL (0.04-0.35); Eosinophils % (A) 5.9 %; HCT 48.5 % (39.6-50.0); HGB 15.8 g/dL (13.0-17.0); Lymphocytes # (A) 1.49 X 10*3/uL (0.90-5.00); Lymphocytes % (A) 19.1 %; MCH 29.6 pg (27.0-32.0); MCHC 32.6 g/dL (32.0-37.0); MCV 90.8 FL (80.0-97.0); Mean Platelet Volume 11.5 FL (9.5-12.2); Monocytes # (A) 1.14 X 10*3/uL (0.20-1.00); Monocytes % (A) 14.6 %; NRBC Per 100 WBC 0 X 10*3/uL (0.00-0.01); Neutrophils # (A) 4.64 X 10*3/uL (1.80-7.70); Neutrophils % (A) 59.5 %; Platelet Count 160 X 10*3/uL (140-440); RBC 5.34 X 10*6/uL (4.40-5.60); RDW 13.5 % (11.5-14.5)
[2024-09-20 16:31] LABS: BUN/Creat Ratio 17.12 Ratio (12.00-20.00); Blood Urea Nitrogen 13.7 mg/dL (9.0-27.0); Glucose 125 mg/dL (70-110)
[2024-09-20 16:32] LABS: ALT 72 U/L (10-49); AST 29 U/L (14-35); Albumin 4.4 g/dL (3.8-4.9); Albumin/Globulin Ratio 1.57 Ratio (1.60-3.17); Alkaline Phosphatase 62 U/L (41-126); Calcium 9.4 mg/dL (8.7-10.3); Carbon Dioxide 24.8 mmol/L (21.6-31.8); Chloride 105 mmol/L (96-109); Globulin 2.8 g/dL (1.6-3.3); Potassium 4.7 mmol/L (3.5-5.5); Prostate Specific Antigen 1.67 ng/mL (0.000-3.500); Sodium 140 mmol/L (135-145); Total Bilirubin 0.5 mg/dL (0.3-1.2); Total Protein 7.2 g/dL (6.2-8.2)
== END | disposition home or self-care (01) ==
LOC: LABWHC1 09:33
PROVIDERS: ATTEND Family Medicine
DX: I10 Essential (primary) hypertension (principal); I25.10 Atherosclerotic heart disease of native coronary artery without angina pectoris; N40.0 Benign prostatic hyperplasia without lower urinary tract symptoms; E55.9 Vitamin D deficiency, unspecified; D51.9 Vitamin B12 deficiency anemia, unspecified; R73.03 Prediabetes
CPT/HCPCS: 36415; 80053; 82306; 82607; 83036; 84153; 84443; 85025

== ENCOUNTER → 2025-04-04 | Outpatient (CLI) | payer BC ==
[2025-04-04 16:22] LABS: Basophils # (A) 0.04 X 10*3/uL (0.00-0.10); Basophils % (A) 0.6 %; Eosinophils # (A) 0.27 X 10*3/uL (0.04-0.35); HCT 45.3 % (39.6-50.0); HGB 14.9 g/dL (13.0-17.0); Lymphocytes # (A) 1.58 X 10*3/uL (0.90-5.00); Lymphocytes % (A) 23.7 %; MCH 28.9 pg (27.0-32.0); MCHC 32.9 g/dL (32.0-37.0); Mean Platelet Volume 11.2 FL (9.5-12.2); Monocytes # (A) 0.67 X 10*3/uL (0.20-1.00); NRBC Per 100 WBC 0 X 10*3/uL (0.00-0.01); Neutrophils # (A) 4.09 X 10*3/uL (1.80-7.70); Neutrophils % (A) 61.4 %; Platelet Count 173 X 10*3/uL (140-440); RBC 5.15 X 10*6/uL (4.40-5.60); RDW 13.2 % (11.5-14.5); WBC 6.67 X 10*3/uL (4.50-10.00)
[2025-04-04 16:43] LABS: ALT 41 U/L (10-49); AST 23 U/L (14-35); Albumin 4.1 g/dL (3.8-4.9); Albumin/Globulin Ratio 1.71 Ratio (1.60-3.17); Alkaline Phosphatase 63 U/L (41-126); BUN/Creat Ratio 15.71 Ratio (12.00-20.00); Calcium 8.8 mg/dL (8.7-10.3); Carbon Dioxide 22.3 mmol/L (21.6-31.8); Chloride 108 mmol/L (96-109); Chol/HDL Ratio 3.56 Ratio; Globulin 2.4 g/dL (1.6-3.3); Glucose 115 mg/dL (70-110); LDL Cholesterol,Calculated 67.3 mg/dL (0.0-131.0); Potassium 4.4 mmol/L (3.5-5.5); Sodium 139 mmol/L (135-145); Total Bilirubin 0.6 mg/dL (0.3-1.2); Total Protein 6.5 g/dL (6.2-8.2); VLDL Calculation 14.66 mg/dL (5.00-40.00)
== END | disposition home or self-care (01) ==
LOC: LABWHC1 09:45
PROVIDERS: ATTEND Family Medicine
DX: I25.10 Atherosclerotic heart disease of native coronary artery without angina pectoris (principal); N18.2 Chronic kidney disease, stage 2 (mild); R73.9 Hyperglycemia, unspecified
CPT/HCPCS: 36415; 80053; 80061; 83036; 84443; 85025